=== PATIENT | male | born 1935 | race Caucasian/White ===

== ENCOUNTER 2016-11-14 05:36 | Emergency (ER) | payer MEDICARE, BC ==
[2016-11-14 06:09] VITALS: BP 171/92
--- NOTE | 2016-11-14 07:46 | EDM.PDOC ---
ED HPI GENERAL MEDICAL PROBLEM - General Chief Complaint: Genitourinary Problem Stated Complaint: BLOOD IN URINE Time Seen by Provider: 11/14/16 07:07 Source of Information: Reports: Patient, Family, Old Records, RN Notes Reviewed History Limitations: Reports: No Limitations - History of Present Illness INITIAL COMMENTS - FREE TEXT/NARRATIVE: 81-year-old gentleman presents emergency department today with gross blood in his urine, he states is been going on for about 24 hours he does have dysuria denies any fevers flank pain shortness of breath chest pain, he does have a history of hematuria in the past underwent cystoscopy in May of this year which was unremarkable he also has been evaluated by nephrology for his chronic kidney disease has had MR of the abdomen as well as renal ultrasounds which demonstrate only cysts he is not had any further workup of his bladder since May. He did have about a hematuria a couple weeks ago diagnoses prostatitis treated with 2 weeks of antibiotics he states he felt better after a couple of days and the bleeding cleared up Denies Pain Score (Numeric/FACES): 0 - Related Data Allergies Allergy/AdvReac Type Severity Reaction Status Date / Time Iodinated Contrast- Oral and Allergy Renal Verified 11/14/16 06:04 IV Dye Insufficiency [Iodinated Contrast Media - IV Dye] Home Meds: Home Meds Carvedilol [Coreg] 0.5 tab PO BID 03/14/14 [History] Cholecalciferol (Vitamin D3) [Vitamin D3] 2,000 unit PO DAILY 03/14/14 [History] Clindamycin HCl [Cleocin] 300 mg PO Q6H 03/14/14 [History] Furosemide [Lasix] 40 mg PO BID 03/14/14 [History] Insulin Glargine,Hum.Rec.Anlog [Lantus Solostar] 0 units SQ DAILY 03/14/14 [ History] Simvastatin [Zocor] 20 mg PO BEDTIME 03/14/14 [History] metroNIDAZOLE [metroNIDAZOLE 0.75% Gel] 45 gm .XX BID 03/14/14 [History] Aspirin [Ecotrin] 81 mg PO DAILY 11/14/16 [History] Furosemide [Lasix] 40 mg PO DAILY 11/14/16 [History] Losartan [Cozaar] 50 mg PO BID 11/14/16 [History] Multivitamin [Multi-Vitamin Daily] 1 tab PO DAILY 11/14/16 [History] Terazosin [Hytrin] 10 mg PO DAILY 11/14/16 [History] Past Medical History HEENT History: Reports: Hard of Hearing, Impaired Vision Cardiovascular History: Reports: Afib, High Cholesterol, Hypertension, Other ( See Below) Other Cardiovascular History: localized edema Genitourinary History: Reports: BPH, Chronic Renal Insuffiency, Other (See Below ) Other Genitourinary History: lesion of bladder Endocrine/Metabolic History: Reports: Diabetes, Type II Oncologic (Cancer) History: Reports: Basal Cell Carcinoma, Malignant Melanoma Dermatologic History: Reports: Melanoma, Other (See Below) - Infectious Disease History Infectious Disease History: Reports: Chicken Pox, Mumps - Past Surgical History HEENT Surgical History: Reports: Tonsillectomy, Other (See Below) Other HEENT Surgeries/Procedures: mandubular mass surgery GI Surgical History: Reports: Colonoscopy Dermatological Surgical History: Reports: Skin Biopsy Social & Family History - Tobacco Use Smoking Status *Q: Never Smoker Second Hand Smoke Exposure: No - Caffeine Use Caffeine Use: Reports: Coffee, Soda - Alcohol Use Days Per Week of Alcohol Use: 0 - Recreational Drug Use Recreational Drug Use: No ED ROS GENERAL - Review of Systems Review Of Systems: See Below Constitutional: Reports: No Symptoms HEENT: Reports: No Symptoms Respiratory: Reports: No Symptoms Cardiovascular: Reports: No Symptoms GI/Abdominal: Reports: No Symptoms : Reports: Dysuria, Hematuria Musculoskeletal: Reports: No Symptoms Skin: Reports: No Symptoms ED EXAM, RENAL/ - Physical Exam Exam: See Below Exam Limited By: No Limitations General Appearance: Alert, WD/WN, No Apparent Distress Head: Atraumatic, Normocephalic Neck: Normal Inspection, Supple, Non-Tender, Full Range of Motion Respiratory/Chest: No Respiratory Distress, Lungs Clear, Normal Breath Sounds, No Accessory Muscle Use Cardiovascular: Regular Rate, Rhythm, No Murmur GI/Abdominal: Soft, Non-Tender Rectal (Males) Exam: Normal Exam, Normal Rectal Tone, Prostate Normal. No: Rectal Fissure, Tenderness Back Exam: No: CVA Tenderness (R), CVA Tenderness (L) Course - Vital Signs Last Recorded V/S: Last Vital Signs Temp 98.2 F 11/14/16 06:09 Pulse 71 11/14/16 06:09 Resp 16 11/14/16 06:09 BP 171/92 H 11/14/16 06:09 Pulse Ox 94 L 11/14/16 06:09 - Orders/Labs/Meds Orders: Active Orders 24 hr Category Date Time Status CULTURE URINE [RM] Urgent Lab 11/14/16 07:51 Received Labs: Laboratory Tests 11/14/16 11/14/16 11/14/16 Range/Units 06:07 07:51 07:51 WBC 10.7 (4.5-11.0) K/uL RBC 4.18 L (4.30-5.90) M/uL Hgb 12.8 (12.0-15.0) g/dL Hct 40.2 (40.0-54.0) % MCV 96 (80-98) fL MCH 31 (27-31) pg MCHC 32 (32-36) % Plt Count 220 (150-400) K/uL Neut % (Auto) 79 H (36-66) % Lymph % (Auto) 8 L (24-44) % [place] % (Auto) 11 H (2-6) % Eos % (Auto) 2 (2-4) % Baso % (Auto) 0 (0-1) % Sodium 142 (140-148) mmol/L Potassium 4.3 (3.6-5.2) mmol/L Chloride 107 (100-108) mmol/L Carbon Dioxide 28 (21-32) mmol/L Anion Gap 7.0 (5.0-14.0) mmol/L BUN 34 H (7-18) mg/dL Creatinine 1.8 H (0.8-1.3) mg/dL Est Cr Clr Drug Dosing 36.37 mL/min Estimated GFR (MDRD) 36 L (>60) Glucose 129 H (74-106) mg/dL Calcium 8.6 (8.5-10.1) mg/dL Total Bilirubin 0.4 (0.2-1.0) mg/dL AST 19 (15-37) U/L ALT 26 (12-78) U/L Alkaline Phosphatase 51 (46-116) U/L C-Reactive Protein 0.07 (0.0-0.3) mg/dL Total Protein 6.2 L (6.4-8.2) g/dL Albumin 3.0 L (3.4-5.0) g/dL Globulin 3.2 (2.3-3.5) g/dL Albumin/Globulin Ratio 0.9 L (1.2-2.2) Urine Color Red Urine Appearance Cloudy Urine pH 6.0 (4.5-8.0) Ur Specific [place] 1.020 (1.008-1.030) Urine Protein 500 H (NEGATIVE) mg/dL Urine Glucose (UA) 50 H (NEGATIVE) mg/dL Urine Ketones Negative (NEGATIVE) mg/dL Urine Occult Blood Large (NEGATIVE) Urine Nitrite Negative (NEGAITVE) Urine Bilirubin Negative (NEGATIVE) Urine Urobilinogen Normal (NORMAL) mg/dL Ur Leukocyte Esterase Small (NEGATIVE) Urine RBC Packed H (0-5) Urine WBC Semi-packed H (0-5) Ur Epithelial Cells Few Amorphous Sediment Not seen Urine Bacteria Few Urine Mucus Not seen Departure - Departure Time of Disposition: 09:16 Disposition: Home, Self-Care 01 Condition: Fair Clinical Impression: Hematuria Qualifiers: Hematuria type: gross Qualified Code(s): R31.0 - Gross hematuria - Discharge Information Referrals: Adriano Kendall MD [Primary Care Provider] - Forms: ED Department Discharge Additional Instructions: Please follow-up with your forest fire officer next week, call return to the emergency department worsening of symptoms - My Orders Last 24 Hours: My Active Orders 11/14/16 07:51 CULTURE URINE [RM] Urgent - Assessment/Plan Last 24 Hours: My Active Orders 11/14/16 07:51 CULTURE URINE [RM] Urgent Plan: Assessment Acuity = acute Site and laterality = hematuria Etiology = probable for nephrotic syndrome Manifestations = dysuria Location of injury = Home Lab values = creatinine elevated at 1.8 consistent chronic renal failure stage G IIIB albumin low at 3.0 consistent with hypoalbuminemia urinalysis reveals 500 protein consistent proteinuria packed rbc's consists with hematuria packed WBCs consistent with pyuria Plan I did review lab work with him also prior medications recommended they follow up with her forest fire officer on Tuesday of next week Patient was in agreement with the plan all questions were answered, they were instructed to return to the emergency department or call for worsening symptoms. This note was dictated using [email or web address] voice recognition software please call with any questions.
== END 2016-11-14 09:23 | disposition home or self-care (01) ==
LOC: JP.ED 05:36
DX: R31.0 Gross hematuria (principal); E78.00 Pure hypercholesterolemia, unspecified; E11.22 Type 2 diabetes mellitus with diabetic chronic kidney disease; I12.9 Hypertensive chronic kidney disease with stage 1 through stage 4 chronic kidney disease, or unspecified chronic kidney disease; N18.9 Chronic kidney disease, unspecified; Z79.4 Long term (current) use of insulin; Z79.82 Long term (current) use of aspirin; Z79.899 Other long term (current) drug therapy
CPT/HCPCS: 36415; 80053; 81001; 85025; 86140; 87086; 87088; 87186; 99283; 99284

== ENCOUNTER 2016-11-17 17:18 | Inpatient (IN) | payer MEDICARE, BC ==
[2016-11-17] MEDS ORDERED: Sodium Chloride 0.9% 1,000 ML IV SCH ×2 (17:30→18:15)
[2016-11-17] MEDS ORDERED: Ibuprofen 800 MG Tab PO ONE (17:33)
[2016-11-17] MEDS ORDERED: Ibuprofen Susp 100 MG/5 ML 5 ML UD Cup PO ONE (17:37)
[2016-11-17] MEDS ORDERED: cefTRIAXone 1 GM in Sodium Chloride 0.9% 50 ML IV ONE (17:41)
--- NOTE | 2016-11-17 18:16 | EDM.PDOC ---
ED HPI GENERAL MEDICAL PROBLEM - General Chief Complaint: Fever Time Seen by Provider: 11/17/16 17:50 Source of Information: Reports: Patient, Family History Limitations: Reports: No Limitations - History of Present Illness INITIAL COMMENTS - FREE TEXT/NARRATIVE: pt arrived with shaking chills and having very rapid resp. He was seen tuesday with blood in his urine. He hd a urine culture but he was not treated with antibiotics. Onset: Today Duration: Hour(s):, Other (pt has not felt well all day. ) Location: Reports: Generalized Associated Symptoms: Reports: Diaphoresis, Fever/Chills, Shortness of Breath, Weakness - Related Data Allergies Allergy/AdvReac Type Severity Reaction Status Date / Time Iodinated Contrast- Oral and Allergy Renal Verified 11/14/16 06:04 IV Dye Insufficiency [Iodinated Contrast Media - IV Dye] Home Meds: Home Meds Carvedilol [Coreg] 0.5 tab PO BID 03/14/14 [History] Cholecalciferol (Vitamin D3) [Vitamin D3] 2,000 unit PO DAILY 03/14/14 [History] Clindamycin HCl [Cleocin] 300 mg PO Q6H 03/14/14 [History] Furosemide [Lasix] 40 mg PO BID 03/14/14 [History] Insulin Glargine,Hum.Rec.Anlog [Lantus Solostar] 0 units SQ DAILY 03/14/14 [ History] Simvastatin [Zocor] 20 mg PO BEDTIME 03/14/14 [History] metroNIDAZOLE [metroNIDAZOLE 0.75% Gel] 45 gm .XX BID 03/14/14 [History] Aspirin [Ecotrin] 81 mg PO DAILY 11/14/16 [History] Furosemide [Lasix] 40 mg PO DAILY 11/14/16 [History] Losartan [Cozaar] 50 mg PO BID 11/14/16 [History] Multivitamin [Multi-Vitamin Daily] 1 tab PO DAILY 11/14/16 [History] Terazosin [Hytrin] 10 mg PO DAILY 11/14/16 [History] Past Medical History HEENT History: Reports: Hard of Hearing, Impaired Vision Cardiovascular History: Reports: Afib, High Cholesterol, Hypertension, Other ( See Below) Other Cardiovascular History: localized edema Genitourinary History: Reports: BPH, Chronic Renal Insuffiency, Other (See Below ) Other Genitourinary History: lesion of bladder Endocrine/Metabolic History: Reports: Diabetes, Type II Oncologic (Cancer) History: Reports: Basal Cell Carcinoma, Malignant Melanoma Dermatologic History: Reports: Melanoma, Other (See Below) - Infectious Disease History Infectious Disease History: Reports: Chicken Pox, Mumps - Past Surgical History HEENT Surgical History: Reports: Tonsillectomy, Other (See Below) Other HEENT Surgeries/Procedures: mandubular mass surgery GI Surgical History: Reports: Colonoscopy Dermatological Surgical History: Reports: Skin Biopsy Social & Family History - Tobacco Use Smoking Status *Q: Never Smoker Second Hand Smoke Exposure: No - Caffeine Use Caffeine Use: Reports: Coffee, Soda - Alcohol Use Days Per Week of Alcohol Use: 0 - Recreational Drug Use Recreational Drug Use: No ED ROS GENERAL - Review of Systems Review Of Systems: See Below Constitutional: Reports: Fever, Chills, Malaise, Weakness HEENT: Reports: No Symptoms Respiratory: Reports: Other ( rapid resp. ) Cardiovascular: Reports: No Symptoms Endocrine: Reports: No Symptoms GI/Abdominal: Reports: No Symptoms : Reports: Other ( recent hematuria. ) Musculoskeletal: Reports: No Symptoms Skin: Reports: No Symptoms Neurological: Reports: No Symptoms Hematologic/Lymphatic: Reports: No Symptoms Immunologic: Reports: No Symptoms ED EXAM, SEPSIS - Physical Exam Exam: See Below Text/Narrative:: pt had severe shaking chills thar came on quite suddenly Exam Limited By: No Limitations General Appearance: Alert, Anxious, Severe Distress Ears: Normal TMs Nose: Normal Inspection Throat/Mouth: Normal Inspection Head: Atraumatic Neck: Normal Inspection Respiratory/Chest: No Respiratory Distress Cardiovascular: Regular Rate, Rhythm, Tachycardia GI/Abdominal Exam: Soft, Non-Tender (Male) Exam: Deferred Rectal (Males) Exam: Deferred Back: Normal Inspection Extremities: Normal Inspection Neurological: Alert, Oriented, Other ( some what obtunded. ) Course - Vital Signs Last Recorded V/S: Last Vital Signs Temp 39.8 C H 11/17/16 17:56 Pulse 100 11/17/16 17:56 Resp 22 H 11/17/16 17:56 BP 150/75 H 11/17/16 17:56 Pulse Ox 95 11/17/16 17:56 - Orders/Labs/Meds Orders: Active Orders 24 hr Category Date Time Status Chest 1V Frontal [CR] Stat Exams 11/17/16 18:09 Ordered COMPREHENSIVE METABOLIC PN,CMP [CHEM] Urgent Lab 11/17/16 17:31 Ordered CRP [C-REACTIVE PROTEIN] [CHEM] Stat Lab 11/17/16 17:31 Ordered CULTURE BLOOD [BC] Urgent Lab 11/17/16 17:31 Ordered CULTURE BLOOD [BC] Urgent Lab 11/17/16 17:31 Ordered CULTURE URINE [RM] Stat Lab 11/17/16 18:08 Uncollected GLUCOSE POC LAB TO COLLECT [POC] Stat Lab 11/17/16 17:41 Ordered LACTIC ACID [CHEM] Stat Lab 11/17/16 17:33 Ordered UA W/MICROSCOPIC [URIN] Urgent Lab 11/17/16 17:31 Uncollected Sodium Chloride 0.9% [Normal Saline] 1,000 ml Med 11/17/16 17:30 Active IV ASDIRECTED Sodium Chloride 0.9% [Normal Saline] 1,000 ml Med 11/17/16 18:15 Ordered IV ASDIRECTED Blood Culture x2 Reflex Set [OM.PC] Urgent Oth 11/17/16 17:31 Ordered Medication Orders Sodium Chloride (Normal Saline) 1,000 mls @ 999 mls/hr IV ASDIRECTED [facility] Last Admin: 11/17/16 17:45 Dose: 999 mls/hr Sodium Chloride (Normal Saline) 1,000 mls @ 500 mls/hr IV ASDIRECTED [facility] Labs: Laboratory Tests 11/17/16 Range/Units 17:31 WBC 6.9 (4.5-11.0) K/uL RBC 4.40 (4.30-5.90) M/uL Hgb 13.7 (12.0-15.0) g/dL Hct 42.3 (40.0-54.0) % MCV 96 (80-98) fL MCH 31 (27-31) pg MCHC 32 (32-36) % Plt Count 205 (150-400) K/uL Neut % (Auto) 96 H (36-66) % Lymph % (Auto) 3 L (24-44) % [place] % (Auto) 0 L (2-6) % Eos % (Auto) 0 L (2-4) % Baso % (Auto) 0 (0-1) % Meds: Medications Generic Name Dose Route Start Last Admin Trade Name Freq PRN Reason Stop Dose Admin Sodium Chloride 1,000 mls @ 999 mls/hr 11/17/16 17:30 11/17/16 17:45 Normal Saline IV 999 mls/hr ASDIRECTED PARI Administration Sodium Chloride 1,000 mls @ 500 mls/hr 11/17/16 18:15 Normal Saline IV ASDIRECTED PARI Discontinued Medications Generic Name Dose Route Start Last Admin Trade Name Mikael PRN Reason Stop Dose Admin Ceftriaxone Sodium 1 gm/ 50 mls @ 100 mls/hr 11/17/16 17:41 11/17/16 17:54 Sodium Chloride IV 11/17/16 18:10 100 mls/hr ONETIME ONE Administration Ibuprofen 800 mg 11/17/16 17:33 Motrin PO 11/17/16 17:34 ONETIME ONE Ibuprofen 600 mg 11/17/16 17:37 11/17/16 17:45 Motrin 100 Mg/5 Ml Susp PO 11/17/16 17:38 600 mg ONETIME ONE Administration - Re-Assessments/Exams Free Text/Narrative Re-Assessment/Exam: 11/17/16 18:18 pt had a urine culture from Tuesday which was pos for ecoli. His wbc is not elevated today. He was started with fluids and he was given a gram of rocephen. Motrin 600mg was given to the pt. Departure - Departure Time of Disposition: 18:20 Disposition: Admitted As Inpatient 66 Condition: Fair Clinical Impression: Sepsis, UTI (urinary tract infection) Hematuria Qualifiers: Hematuria type: gross Qualified Code(s): R31.0 - Gross hematuria - Discharge Information Referrals: Adriano Kendall MD [Primary Care Provider] - Care Plan Goals: admit to Dr huff. - My Orders Last 24 Hours: My Active Orders 11/17/16 17:30 Sodium Chloride 0.9% [Normal Saline] 1,000 ml IV ASDIRECTED 11/17/16 17:31 COMPREHENSIVE METABOLIC PN,CMP [CHEM] Urgent CRP [C-REACTIVE PROTEIN] [CHEM] Stat CULTURE BLOOD [BC] Urgent CULTURE BLOOD [BC] Urgent UA W/MICROSCOPIC [URIN] Urgent Blood Culture x2 Reflex Set [OM.PC] Urgent 11/17/16 17:33 LACTIC ACID [CHEM] Stat 11/17/16 17:41 GLUCOSE POC LAB TO COLLECT [POC] Stat 11/17/16 18:08 CULTURE URINE [RM] Stat 11/17/16 18:09 Chest 1V Frontal [CR] Stat 11/17/16 18:15 Sodium Chloride 0.9% [Normal Saline] 1,000 ml IV ASDIRECTED - Assessment/Plan Last 24 Hours: My Active Orders 11/17/16 17:30 Sodium Chloride 0.9% [Normal Saline] 1,000 ml IV ASDIRECTED 11/17/16 17:31 COMPREHENSIVE METABOLIC PN,CMP [CHEM] Urgent CRP [C-REACTIVE PROTEIN] [CHEM] Stat CULTURE BLOOD [BC] Urgent CULTURE BLOOD [BC] Urgent UA W/MICROSCOPIC [URIN] Urgent Blood Culture x2 Reflex Set [OM.PC] Urgent 11/17/16 17:33 LACTIC ACID [CHEM] Stat 11/17/16 17:41 GLUCOSE POC LAB TO COLLECT [POC] Stat 11/17/16 18:08 CULTURE URINE [RM] Stat 11/17/16 18:09 Chest 1V Frontal [CR] Stat 11/17/16 18:15 Sodium Chloride 0.9% [Normal Saline] 1,000 ml IV ASDIRECTED
[2016-11-17] MEDS ORDERED: Sodium Chloride 0.9% 10 ML Syringe FLUSH PRN (19:36)
[2016-11-17] MEDS ORDERED: Polyethylene Glycol 3350 Powder 17 GM Packet PO PRN (19:36)
[2016-11-17] MEDS ORDERED: 50% Dextrose in Water 50 ML Syringe IV PRN (19:36)
[2016-11-17] MEDS ORDERED: Magnesium Hydroxide 400 MG/5 ML Susp 30 ML Cup PO PRN (19:36)
[2016-11-17] MEDS ORDERED: oxyCODONE 5 MG Tab PO PRN (19:36)
[2016-11-17] MEDS ORDERED: Docusate Sodium 100 MG Cap PO PRN (19:36)
[2016-11-17] MEDS ORDERED: Glucose Gel 15 GM in 37.5 GM Tube PO PRN (19:36)
[2016-11-17] MEDS ORDERED: Lactated Ringers 500 ML IV SCH (19:36)
[2016-11-17] MEDS ORDERED: Ondansetron 4 MG/2 ML SDV IV PRN (19:36)
[2016-11-17] MEDS ORDERED: Enoxaparin 30 MG/0.3 ML Syringe SUBCUT SCH (19:36)
--- NOTE | 2016-11-17 19:56 | PCM.HP ---
H&P History of Present Illness - General Date of Service: 11/17/16 Admit Problem/Dx: Admission Diagnosis/Problem Admission Diagnosis/Problem Cystitis Source of Information: Patient, Family, Old Records, Provider, RN Notes Reviewed History Limitations: Reports: No Limitations - History of Present Illness Initial Comments - Free Text/Narative: This patient is an 81-year-old gentleman who is admitted through the emergency department with fever, chills, weakness, secondary to urinary tract infection with sepsis. He had difficulty with urinary tract infection late September early October and associated gross hematuria. Hematuria and symptoms resolved after antibiotic therapy. Now over the past few days his had intermittent gross hematuria, he was seen and evaluated in the emergency department on Tuesday, culture from that time has grown out Escherichia coli sensitive to most antibiotics. Hematuria had resolved after the weekend but reoccurred today associated with fever, chills, and marked weakness. His white blood cell count is normal but he did have a significant temperature elevation. Follow-up urinalysis shows evidence of infection, lactic acid level is modestly elevated. - Related Data Allergies/Adverse Reactions: Allergies Allergy/AdvReac Type Severity Reaction Status Date / Time Iodinated Contrast- Oral and Allergy Renal Verified 11/14/16 06:04 IV Dye Insufficiency [Iodinated Contrast Media - IV Dye] Home Medications: Home Meds Carvedilol [Coreg] 0.5 tab PO BID 03/14/14 [History] Cholecalciferol (Vitamin D3) [Vitamin D3] 2,000 unit PO DAILY 03/14/14 [History] Insulin Glargine,Hum.Rec.Anlog [Lantus Solostar] 18 units SQ BID 03/14/14 [ History] Simvastatin [Zocor] 20 mg PO BEDTIME 03/14/14 [History] metroNIDAZOLE [metroNIDAZOLE 0.75% Gel] 45 gm .XX BID 03/14/14 [History] Aspirin [Ecotrin] 81 mg PO DAILY 11/14/16 [History] Furosemide [Lasix] 40 mg PO BID 11/14/16 [History] Losartan [Cozaar] 50 mg PO BID 11/14/16 [History] Multivitamin [Multi-Vitamin Daily] 1 tab PO DAILY 11/14/16 [History] Terazosin [Hytrin] 10 mg PO DAILY 11/14/16 [History] Insulin Aspart [Novolog] 100 unit SQ QID 11/17/16 [History] Past Medical History HEENT History: Reports: Hard of Hearing, Impaired Vision Cardiovascular History: Reports: Afib, High Cholesterol, Hypertension, Other ( See Below) Other Cardiovascular History: localized edema Genitourinary History: Reports: BPH, Chronic Renal Insuffiency, Other (See Below ) Other Genitourinary History: lesion of bladder Endocrine/Metabolic History: Reports: Diabetes, Type II Oncologic (Cancer) History: Reports: Basal Cell Carcinoma, Malignant Melanoma Dermatologic History: Reports: Melanoma, Other (See Below) - Infectious Disease History Infectious Disease History: Reports: Chicken Pox, Mumps - Past Surgical History HEENT Surgical History: Reports: Tonsillectomy, Other (See Below) Other HEENT Surgeries/Procedures: mandubular mass surgery GI Surgical History: Reports: Colonoscopy Dermatological Surgical History: Reports: Skin Biopsy Social & Family History - Tobacco Use Smoking Status *Q: Never Smoker Second Hand Smoke Exposure: No - Caffeine Use Caffeine Use: Reports: Coffee, Soda - Alcohol Use Days Per Week of Alcohol Use: 0 - Recreational Drug Use Recreational Drug Use: No H&P Review of Systems - Review of Systems: Review Of Systems: See Below General: Reports: Fever, Chills, Weakness HEENT: Reports: No Symptoms Pulmonary: Reports: No Symptoms Cardiovascular: Reports: No Symptoms Gastrointestinal: Reports: No Symptoms Genitourinary: Reports: Frequency, Urgency, Incontinence, Hematuria. Denies: Dysuria, Pain Musculoskeletal: Reports: No Symptoms Skin: Reports: No Symptoms Psychiatric: Reports: No Symptoms Neurological: Reports: No Symptoms Hematologic/Lymphatic: Reports: No Symptoms Immunologic: Reports: No Symptoms Exam - Exam Exam: See Below - Vital Signs Vital Signs: Last Vital Signs Temp 102.6 F H 11/17/16 19:40 Pulse 95 11/17/16 19:40 Resp 14 11/17/16 19:03 BP 118/65 11/17/16 19:40 Pulse Ox 90 L 11/17/16 19:40 Weight: 270 lb 1.06 oz - Exam Quality Assessment: DVT Prophylaxis General: Alert, Oriented, Cooperative, Mild Distress HEENT: Conjunctiva Clear, Mucosa Moist & [place], Normal Nasal Septum, Posterior Pharynx Clear, Pupils Equal. No: Hearing Intact Neck: Supple, Trachea Midline, +2 Carotid Pulse wo Bruit Lungs: Clear to Auscultation, Normal Respiratory Effort Cardiovascular: Regular Rate, Regular Rhythm, Normal S1, Normal S2. No: Systolic Murmur, Diastolic Murmur GI/Abdominal Exam: Normal Bowel Sounds, Soft, Non-Tender, No Organomegaly, No Distention Back Exam: Normal Inspection, Full Range of Motion Extremities: Non-Tender, No Pedal Edema Skin: Warm, Dry Neurological: Cranial Nerves Intact, Strength Equal Bilateral, Normal Speech, Normal Tone. No: Focal Deficit Neuro Extensive - Mental Status: Alert, Oriented x3, Normal Mood/Affect, Normal Cognition, Memory Intact - Patient Data Lab Results Last 24 hrs: Laboratory Results - last 24 hr 11/17/16 Range/Units 19:01 Urine Color Brown Urine Appearance Cloudy Urine pH 6.0 (4.5-8.0) Ur Specific [place] 1.010 (1.008-1.030) Urine Protein 500 H (NEGATIVE) mg/dL Urine Glucose (UA) 250 H (NEGATIVE) mg/dL Urine Ketones Negative (NEGATIVE) mg/dL Urine Occult Blood Large (NEGATIVE) Urine Nitrite Negative (NEGAITVE) Urine Bilirubin Negative (NEGATIVE) Urine Urobilinogen Normal (NORMAL) mg/dL Ur Leukocyte Esterase Moderate (NEGATIVE) Urine RBC >100 H (0-5) Urine WBC Packed H (0-5) Ur Epithelial Cells Few Amorphous Sediment Not seen Urine Bacteria Many Urine Mucus Not seen Result Diagrams: 11/17/16 17:31 11/17/16 17:31 *Q Meaningful Use (ADM) - VTE *Q VTE Criteria *Q: - VTE Risk Assess *Q Each Risk Factor Represents 1 Point: Obesity (BMI greater than 30) Total Score 1 Point Risk Factors: 1 Each Risk Factor Represents 2 Points: None Total Score 2 Point Risk Factors: 0 Each Risk Factor Represents 3 Points: Age 75 Years or Greater Total Score 3 Point Risk Factors: 3 Each Risk Factor Represents 5 Points: None Total Score 5 Point Risk Factors: 0 Venous Thromboembolism Risk Factor Score *Q: 4 - Stroke *Q Stroke Criteria *Q: - AMI *Q AMI Criteria *Q: Problem List Initiated/Reviewed/Updated: Yes Orders Last 24hrs: Active Orders 24 hr Category Date Time Status Patient Status [ADT] Routine ADT 11/17/16 19:36 Active Ambulate [RC] QID Care 11/17/16 19:36 Active Blood Glucose Check, Bedside [RC] QIDACANDBED Care 11/17/16 19:36 Active Communication Order [RC] ASDIRECTED Care 11/17/16 19:36 Active Diabetes Education [RC] Click to Edit Care 11/17/16 19:36 Active Intake and Output [RC] QSHIFT Care 11/17/16 19:36 Active Notify Provider Vital Signs [RC] ASDIRECTED Care 11/17/16 19:36 Active Notify Provider [RC] PRN Care 11/17/16 19:36 Active Oxygen Therapy [RC] PRN Care 11/17/16 19:36 Active Peripheral IV Care [RC] . DIRECTED Care 11/17/16 19:36 Active Up With Assistance [RC] ASDIRECTED Care 11/17/16 19:36 Active Up to Chair [RC] QID Care 11/17/16 19:36 Active VTE/DVT Education [RC] Per Unit Routine Care 11/17/16 19:36 Active Vital Signs [RC] Q4H Care 11/17/16 19:36 Active PT Evaluation and Treatment [CONS] Routine Cons 11/17/16 19:36 Active Consistent Carbohydrate Diet [DIET] Diet 11/17/16 Dinner Active BASIC METABOLIC PANEL,BMP [CHEM] AM Lab 11/18/16 05:11 Ordered CBC WITH AUTO DIFF [HEME] AM Lab 11/18/16 05:11 Ordered GLUCOSE POC LAB TO COLLECT [POC] QIDACANDBED Lab 11/17/16 21:00 Ordered GLUCOSE POC LAB TO COLLECT [POC] QIDACANDBED Lab 11/18/16 07:30 Ordered GLUCOSE POC LAB TO COLLECT [POC] QIDACANDBED Lab 11/18/16 11:30 Ordered GLUCOSE POC LAB TO COLLECT [POC] QIDACANDBED Lab 11/18/16 16:30 Ordered GLUCOSE POC LAB TO COLLECT [POC] QIDACANDBED Lab 11/18/16 21:00 Ordered GLUCOSE POC LAB TO COLLECT [POC] QIDACANDBED Lab 11/19/16 07:30 Ordered GLUCOSE POC LAB TO COLLECT [POC] QIDACANDBED Lab 11/19/16 11:30 Ordered GLUCOSE POC LAB TO COLLECT [POC] QIDACANDBED Lab 11/19/16 16:30 Ordered GLUCOSE POC LAB TO COLLECT [POC] QIDACANDBED Lab 11/19/16 21:00 Ordered GLUCOSE POC LAB TO COLLECT [POC] QIDACANDBED Lab 11/20/16 07:30 Ordered GLUCOSE POC LAB TO COLLECT [POC] QIDACANDBED Lab 11/20/16 11:30 Ordered GLUCOSE POC LAB TO COLLECT [POC] QIDACANDBED Lab 11/20/16 16:30 Ordered GLUCOSE POC LAB TO COLLECT [POC] QIDACANDBED Lab 11/20/16 21:00 Ordered GLUCOSE POC LAB TO COLLECT [POC] QIDACANDBED Lab 11/21/16 07:30 Ordered GLUCOSE POC LAB TO COLLECT [POC] QIDACANDBED Lab 11/21/16 11:30 Ordered GLUCOSE POC LAB TO COLLECT [POC] QIDACANDBED Lab 11/21/16 16:30 Ordered GLUCOSE POC LAB TO COLLECT [POC] QIDACANDBED Lab 11/21/16 21:00 Ordered GLUCOSE POC LAB TO COLLECT [POC] QIDACANDBED Lab 11/22/16 07:30 Ordered GLUCOSE POC LAB TO COLLECT [POC] QIDACANDBED Lab 11/22/16 11:30 Ordered GLUCOSE POC LAB TO COLLECT [POC] QIDACANDBED Lab 11/22/16 16:30 Ordered GLUCOSE POC LAB TO COLLECT [POC] QIDACANDBED Lab 11/22/16 21:00 Ordered GLUCOSE POC LAB TO COLLECT [POC] QIDACANDBED Lab 11/23/16 07:30 Ordered GLUCOSE POC LAB TO COLLECT [POC] QIDACANDBED Lab 11/23/16 11:30 Ordered GLUCOSE POC LAB TO COLLECT [POC] QIDACANDBED Lab 11/23/16 16:30 Ordered GLUCOSE POC LAB TO COLLECT [POC] QIDACANDBED Lab 11/23/16 21:00 Ordered GLUCOSE POC LAB TO COLLECT [POC] QIDACANDBED Lab 11/24/16 07:30 Ordered GLUCOSE POC LAB TO COLLECT [POC] QIDACANDBED Lab 11/24/16 11:30 Ordered GLUCOSE POC LAB TO COLLECT [POC] QIDACANDBED Lab 11/24/16 16:30 Ordered GLUCOSE POC LAB TO COLLECT [POC] QIDACANDBED Lab 11/24/16 21:00 Ordered GLUCOSE POC LAB TO COLLECT [POC] QIDACANDBED Lab 11/25/16 07:30 Ordered GLUCOSE POC LAB TO COLLECT [POC] QIDACANDBED Lab 11/25/16 11:30 Ordered GLUCOSE POC LAB TO COLLECT [POC] QIDACANDBED Lab 11/25/16 16:30 Ordered GLUCOSE POC LAB TO COLLECT [POC] QIDACANDBED Lab 11/25/16 21:00 Ordered GLUCOSE POC LAB TO COLLECT [POC] QIDACANDBED Lab 11/26/16 07:30 Ordered GLUCOSE POC LAB TO COLLECT [POC] QIDACANDBED Lab 11/26/16 11:30 Ordered GLUCOSE POC LAB TO COLLECT [POC] QIDACANDBED Lab 11/26/16 16:30 Ordered GLUCOSE POC LAB TO COLLECT [POC] QIDACANDBED Lab 11/26/16 21:00 Ordered GLUCOSE POC LAB TO COLLECT [POC] QIDACANDBED Lab 11/27/16 07:30 Ordered GLUCOSE POC LAB TO COLLECT [POC] QIDACANDBED Lab 11/27/16 11:30 Ordered GLUCOSE POC LAB TO COLLECT [POC] QIDACANDBED Lab 11/27/16 16:30 Ordered GLUCOSE POC LAB TO COLLECT [POC] QIDACANDBED Lab 11/27/16 21:00 Ordered GLUCOSE POC LAB TO COLLECT [POC] QIDACANDBED Lab 11/28/16 07:30 Ordered GLUCOSE POC LAB TO COLLECT [POC] QIDACANDBED Lab 11/28/16 11:30 Ordered GLUCOSE POC LAB TO COLLECT [POC] QIDACANDBED Lab 11/28/16 16:30 Ordered LACTIC ACID [CHEM] Stat Lab 11/17/16 23:00 Ordered MAGNESIUM [CHEM] AM Lab 11/18/16 05:11 Ordered Acetaminophen [Tylenol] Med 11/17/16 19:36 Active 650 mg PO Q4H PRN Dextrose 50% in Water Med 11/17/16 19:36 Ordered 50 ml IV ONETIME PRN Dextrose [Glutose 15] Med 11/17/16 19:36 Ordered 15 gm PO ONETIME PRN Docusate Sodium [Colace] Med 11/17/16 19:36 Ordered 100 mg PO BID PRN Enoxaparin [Lovenox] Med 11/17/16 19:36 Ordered 30 mg SUBCUT DAILY Insulin Aspart [NovoLOG] Med 11/17/16 20:00 Ordered See Protocol SUBCUT QIDACANDBED Lactated Ringers [Ringers, Lactated] 1,000 ml Med 11/17/16 23:15 Ordered IV ASDIRECTED Lactated Ringers [Ringers, Lactated] 500 ml Med 11/17/16 19:36 Ordered IV .BOLUS Magnesium Hydroxide [Milk of Magnesia] Med 11/17/16 19:36 Ordered 30 ml PO Q12H PRN Ondansetron [Zofran] Med 11/17/16 19:36 Ordered 4 mg IV Q4H PRN Polyethylene Glycol 3350 [MiraLAX] Med 11/17/16 19:36 Ordered 17 gm PO DAILY PRN Sodium Chloride 0.9% [Saline Flush] Med 11/17/16 19:36 Ordered 10 ml FLUSH ASDIRECTED PRN cefTRIAXone [Rocephin] 1 gm Med 11/17/16 19:36 Ordered Sodium Chloride 0.9% [Normal Saline] 50 ml IV Q24H oxyCODONE Med 11/17/16 19:36 Ordered 5 mg PO Q4H PRN Peripheral IV Insertion Adult [OM.PC] Routine Oth 11/17/16 19:36 Ordered Resuscitation Status Routine Resus Stat 11/17/16 19:02 Ordered Medication Orders Acetaminophen (Tylenol) 650 mg PO Q4H PRN PRN Reason: Pain (Mild 1-3)/fever Aspirin (Halfprin) 81 mg PO DAILY PARI Carvedilol (Coreg) 12.5 mg PO BID PARI Dextrose (Glutose 15) 15 gm PO ONETIME PRN PRN Reason: Hypoglycemia Dextrose/Water (Dextrose 50% In Water) 50 ml IV ONETIME PRN PRN Reason: Hypoglycemia Docusate Sodium (Colace) 100 mg PO BID PRN PRN Reason: Constipation Enoxaparin Sodium (Lovenox) 30 mg SUBCUT DAILY PARI Furosemide (Lasix) 40 mg PO BID PARI Ceftriaxone Sodium 1 gm/ (Sodium Chloride) 50 mls @ 100 mls/hr IV Q24H PARI Lactated Ringer's (Ringers, Lactated) 500 mls @ 500 mls/hr IV .BOLUS PARI Stop: 11/17/16 23:37 Lactated Ringer's (Ringers, Lactated) 1,000 mls @ 125 mls/hr IV ASDIRECTED PARI Insulin Aspart (Novolog) 0 unit SUBCUT QIDACANDBED PARI PRN Reason: Protocol Losartan Potassium (Cozaar) 50 mg PO BID PARI Magnesium Hydroxide (Milk Of Magnesia) 30 ml PO Q12H PRN PRN Reason: Constipation Non-Formulary Medication (Insulin Glargine,Hum.Rec.Anlog [Lantus Solostar]) 18 units SQ BID COUNT INCLUDES THE [facility] Ondansetron HCl (Zofran) 4 mg IV Q4H PRN PRN Reason: Nausea/Vomiting Oxycodone HCl (Oxycodone) 5 mg PO Q4H PRN PRN Reason: Pain (moderate 4-6) Polyethylene Glycol (Miralax) 17 gm PO DAILY PRN PRN Reason: Constipation Simvastatin (Zocor) 20 mg PO BEDTIME PRAI Sodium Chloride (Saline Flush) 10 ml FLUSH ASDIRECTED PRN PRN Reason: Keep Vein Open Terazosin HCl (Hytrin) 10 mg PO DAILY PARI Assessment/Plan Comment:: ASSESSMENT AND PLAN COMPLICATED URINARY TRACT INFECTION WITH SEPSIS-recent difficulty with recurrent urinary tract infection, recent culture growing Escherichia coli sensitive to ceftriaxone -Repeat urine culture and blood cultures pending -Aggressive IV fluid replacement per sepsis protocol -Follow-up lactic acid level in 4 hours -Rocephin 1 g IV every 24 hours pending follow-up culture results -Outpatient urology evaluation CHRONIC KIDNEY DISEASE STAGE III -Closely monitor urine output and renal function during hospital stay TYPE 2 DIABETES MELLITUS -4 times a day glucometers -Continue usual dose of long-acting insulin -Moderate dose sliding scale NovoLog MAINTENANCE ISSUES -DVT prophylaxis; Lovenox 30 mg subcutaneous daily -GI prophylaxis; not indicated -Barrientos catheter; not indicated -Nutrition; consistent carb diet -Nicotine dependence; not required CODE STATUS-FULL CODE ADMISSION STATUS-patient will be admitted to inpatient status, expect at least a 2 night hospital stay for evaluation and management of problems as outlined above. At the time of this admission I do not reasonably expected evaluation and management of this problem will require more than a 96 hour hospital stay. DISPOSITION-anticipate discharge to home after the hospital stay. PRIMARY CARE PROVIDER-Dr. Kendall
[2016-11-17] MEDS ORDERED: FLU Vacc TS 2017-18 (65yr UP)/PF 180 MCG/0.5 ML Syringe IM ONE (20:30)
[2016-11-17] MEDS: Losartan 50 MG Tab PO SCH (20:58)
[2016-11-17] MEDS: Carvedilol 12.5 MG Tab PO SCH (20:58)
[2016-11-17] MEDS: Acetaminophen 325 MG Tab PO PRN (20:59)
[2016-11-17] MEDS: Simvastatin 20 MG Tab PO SCH (20:59)
[2016-11-17] MEDS ORDERED: Insulin Detemir 100 Units/ML 3 ML Pen SUBCUT SCH (21:00)
[2016-11-17] MEDS: Insulin Aspart 100 Units/ML 3 ML Pen SUBCUT SCH (21:41)
[2016-11-17] MEDS ORDERED: Lactated Ringers 1,000 ML IV SCH (23:15)
[2016-11-18] MEDS: Insulin Aspart 100 Units/ML 3 ML Pen SUBCUT SCH ×4 (07:59→20:28)
[2016-11-18] MEDS: Insulin Detemir 100 Units/ML 3 ML Pen SUBCUT SCH ×2 (08:08→20:29)
--- NOTE | 2016-11-18 08:41 | CR ---
Chest 1V Frontal HISTORY: sepsis COMPARISON: 03/14/2014 FINDINGS: Portable chest, 1814 hours. Lungs appear clear and normally aerated. Cardiomediastinal silhouette is within normal limits. There is mild atherosclerotic calcification in the aortic arch. No vascular redistribution or pleural fluid can be seen. Bony structures and soft tissues are unremarkable. IMPRESSION: No acute chest abnormality or significant interval change is identified.
[2016-11-18] MEDS ORDERED: Furosemide 40 MG Tab PO SCH (09:00)
--- NOTE | 2016-11-18 09:38 | PCM.PN ---
- General Info Date of Service: 11/18/16 Functional Status: Reports: Pain Controlled, Tolerating Diet, Urinating - Review of Systems General: Reports: Fever, Weakness, Chills Pulmonary: Reports: No Symptoms Cardiovascular: Reports: No Symptoms Gastrointestinal: Reports: No Symptoms Genitourinary: Reports: Frequency, Urgency, Incontinence Systems Review Comment:: This patient has had recurrent fevers since admission with associated chills and weakness. White blood cell count has increased from yesterday, lactic acid level has normalized. Urine output has been borderline and creatinine is increased from admission. Vital signs have been stable, overall energy level seems to be improved and his appetite has also improved. Blood cultures are growing gram-negative rods. - Patient Data Vitals - Most Recent: Last Vital Signs Temp 98.1 F 11/18/16 03:00 Pulse 63 11/18/16 05:00 Resp 18 11/18/16 05:00 BP 143/70 H 11/18/16 05:00 Pulse Ox 96 11/18/16 05:00 Weight - Most Recent: 274 lb 11.135 oz I&O - Last 24 Hours: Intake & Output 11/17/16 11/18/16 11/18/16 22:59 06:59 14:59 Intake Total 2132 2070 Output Total 200 Balance 2132 1870 Lab Results Last 24 Hours: Laboratory Results - last 24 hr 11/17/16 11/17/16 11/18/16 Range/Units 19:01 23:00 04:45 WBC 15.6 H (4.5-11.0) K/uL RBC 3.63 L (4.30-5.90) M/uL Hgb 11.4 L D (12.0-15.0) g/dL Hct 35.2 L (40.0-54.0) % MCV 97 (80-98) fL MCH 31 (27-31) pg MCHC 32 (32-36) % Plt Count 161 (150-400) K/uL Add Manual Diff Yes Neutrophils % (Manual) 74 H (36-66) % Band Neutrophils % 5 (5-11) % Lymphocytes % (Manual) 10 L (24-44) % Monocytes % (Manual) 10 H (2-6) % Eosinophils % (Manual) 1 L (2-4) % Sodium (140-148) mmol/L Potassium (3.6-5.2) mmol/L Chloride (100-108) mmol/L Carbon Dioxide (21-32) mmol/L Anion Gap (5.0-14.0) mmol/L BUN (7-18) mg/dL Creatinine (0.8-1.3) mg/dL Est Cr Clr Drug Dosing mL/min Estimated GFR (MDRD) (>60) Glucose (74-106) mg/dL Lactic Acid 1.5 (0.4-2.0) mmol/L Calcium (8.5-10.1) mg/dL Magnesium (1.8-2.4) mg/dL Urine Color Brown Urine Appearance Cloudy Urine pH 6.0 (4.5-8.0) Ur Specific [place] 1.010 (1.008-1.030) Urine Protein 500 H (NEGATIVE) mg/dL Urine Glucose (UA) 250 H (NEGATIVE) mg/dL Urine Ketones Negative (NEGATIVE) mg/dL Urine Occult Blood Large (NEGATIVE) Urine Nitrite Negative (NEGAITVE) Urine Bilirubin Negative (NEGATIVE) Urine Urobilinogen Normal (NORMAL) mg/dL Ur Leukocyte Esterase Moderate (NEGATIVE) Urine RBC >100 H (0-5) Urine WBC Packed H (0-5) Ur Epithelial Cells Few Amorphous Sediment Not seen Urine Bacteria Many Urine Mucus Not seen 11/18/16 Range/Units 04:45 WBC (4.5-11.0) K/uL RBC (4.30-5.90) M/uL Hgb (12.0-15.0) g/dL Hct (40.0-54.0) % MCV (80-98) fL MCH (27-31) pg MCHC (32-36) % Plt Count (150-400) K/uL Add Manual Diff Neutrophils % (Manual) (36-66) % Band Neutrophils % (5-11) % Lymphocytes % (Manual) (24-44) % Monocytes % (Manual) (2-6) % Eosinophils % (Manual) (2-4) % Sodium 139 L (140-148) mmol/L Potassium 5.0 (3.6-5.2) mmol/L Chloride 107 (100-108) mmol/L Carbon Dioxide 25 (21-32) mmol/L Anion Gap 12.0 (5.0-14.0) mmol/L BUN 46 H (7-18) mg/dL Creatinine 2.6 H (0.8-1.3) mg/dL Est Cr Clr Drug Dosing 25.18 mL/min Estimated GFR (MDRD) 24 L (>60) Glucose 192 H (74-106) mg/dL Lactic Acid (0.4-2.0) mmol/L Calcium 8.0 L (8.5-10.1) mg/dL Magnesium 1.8 (1.8-2.4) mg/dL Urine Color Urine Appearance Urine pH (4.5-8.0) Ur Specific [place] (1.008-1.030) Urine Protein (NEGATIVE) mg/dL Urine Glucose (UA) (NEGATIVE) mg/dL Urine Ketones (NEGATIVE) mg/dL Urine Occult Blood (NEGATIVE) Urine Nitrite (NEGAITVE) Urine Bilirubin (NEGATIVE) Urine Urobilinogen (NORMAL) mg/dL Ur Leukocyte Esterase (NEGATIVE) Urine RBC (0-5) Urine WBC (0-5) Ur Epithelial Cells Amorphous Sediment Urine Bacteria Urine Mucus Med Orders - Current: Current Medications Acetaminophen (Tylenol) 650 mg PO Q4H PRN PRN Reason: Pain (Mild 1-3)/fever Last Admin: 11/17/16 20:59 Dose: 650 mg Aspirin (Halfprin) 81 mg PO DAILY [facility] Carvedilol (Coreg) 12.5 mg PO BID [facility] Last Admin: 11/17/16 20:58 Dose: 12.5 mg Dextrose (Glutose 15) 15 gm PO ONETIME PRN PRN Reason: Hypoglycemia Dextrose/Water (Dextrose 50% In Water) 50 ml IV ONETIME PRN PRN Reason: Hypoglycemia Docusate Sodium (Colace) 100 mg PO BID PRN PRN Reason: Constipation Last Admin: 11/17/16 20:59 Dose: 100 mg Enoxaparin Sodium (Lovenox) 30 mg SUBCUT QPM [facility] Furosemide (Lasix) 40 mg PO BID [facility] Ceftriaxone Sodium 1 gm/ (Sodium Chloride) 50 mls @ 100 mls/hr IV Q24H [facility] Insulin Aspart (Novolog) 0 unit SUBCUT QIDACANDBED [facility] PRN Reason: Protocol Last Admin: 11/18/16 07:59 Dose: 2 units Insulin Detemir (Levemir) 18 unit SUBCUT BID [facility] Last Admin: 11/18/16 08:08 Dose: 18 units Losartan Potassium (Cozaar) 50 mg PO BID [facility] Last Admin: 11/17/16 20:58 Dose: 50 mg Magnesium Hydroxide (Milk Of Magnesia) 30 ml PO Q12H PRN PRN Reason: Constipation Ondansetron HCl (Zofran) 4 mg IV Q4H PRN PRN Reason: Nausea/Vomiting Oxycodone HCl (Oxycodone) 5 mg PO Q4H PRN PRN Reason: Pain (moderate 4-6) Polyethylene Glycol (Miralax) 17 gm PO DAILY PRN PRN Reason: Constipation Simvastatin (Zocor) 20 mg PO BEDTIME [facility] Last Admin: 11/17/16 20:59 Dose: 20 mg Sodium Chloride (Saline Flush) 10 ml FLUSH ASDIRECTED PRN PRN Reason: Keep Vein Open Terazosin HCl (Hytrin) 10 mg PO DAILY [facility] Discontinued Medications Enoxaparin Sodium (Lovenox) 30 mg SUBCUT DAILY [facility] Last Admin: 11/17/16 20:58 Dose: 30 mg Sodium Chloride (Normal Saline) 1,000 mls @ 999 mls/hr IV ASDIRECTED [facility] Last Admin: 11/17/16 17:45 Dose: 999 mls/hr Ceftriaxone Sodium 1 gm/ (Sodium Chloride) 50 mls @ 100 mls/hr IV ONETIME ONE Stop: 11/17/16 18:10 Last Admin: 11/17/16 17:54 Dose: 100 mls/hr Sodium Chloride (Normal Saline) 1,000 mls @ 500 mls/hr IV ASDIRECTED [facility] Last Admin: 11/17/16 18:42 Dose: 500 mls/hr Lactated Ringer's (Ringers, Lactated) 500 mls @ 500 mls/hr IV .BOLUS [facility] Stop: 11/17/16 23:37 Last Admin: 11/17/16 20:47 Dose: 500 mls/hr Lactated Ringer's (Ringers, Lactated) 1,000 mls @ 125 mls/hr IV ASDIRECTED [facility] Last Admin: 11/18/16 05:21 Dose: 125 mls/hr Ibuprofen (Motrin) 800 mg PO ONETIME ONE Stop: 11/17/16 17:34 Last Admin: 11/17/16 21:44 Dose: Not Given Ibuprofen (Motrin 100 Mg/5 Ml Susp) 600 mg PO ONETIME ONE Stop: 11/17/16 17:38 Last Admin: 11/17/16 17:45 Dose: 600 mg Insulin Detemir (Levemir) 18 unit SUBCUT BID [facility] Last Admin: 11/17/16 21:40 Dose: 18 units - Exam Quality Assessment: DVT Prophylaxis General: Alert, Oriented, Cooperative, Mild Distress Lungs: Clear to Auscultation, Normal Respiratory Effort Cardiovascular: Regular Rate, Regular Rhythm, No Murmurs GI/Abdominal Exam: Normal Bowel Sounds, Soft, Non-Tender, No Distention Extremities: Non-Tender, Pedal Edema Skin: Warm, Dry, Intact - Problem List Review Problem List Initiated/Reviewed/Updated: Yes - My Orders Last 24 Hours: My Active Orders 11/17/16 19:02 Resuscitation Status Routine 11/17/16 19:36 Patient Status [ADT] Routine Ambulate [RC] QID Blood Glucose Check, Bedside [RC] QIDACANDBED Communication Order [RC] ASDIRECTED Diabetes Education [RC] Click to Edit Intake and Output [RC] QSHIFT Notify Provider Vital Signs [RC] ASDIRECTED Notify Provider [RC] PRN Oxygen Therapy [RC] PRN Peripheral IV Care [RC] Q12H Up With Assistance [RC] ASDIRECTED Up to Chair [RC] QID VTE/DVT Education [RC] Per Unit Routine Vital Signs [RC] Q2H PT Evaluation and Treatment [CONS] Routine Acetaminophen [Tylenol] 650 mg PO Q4H PRN Dextrose 50% in Water 50 ml IV ONETIME PRN Dextrose [Glutose 15] 15 gm PO ONETIME PRN Docusate Sodium [Colace] 100 mg PO BID PRN Magnesium Hydroxide [Milk of Magnesia] 30 ml PO Q12H PRN Ondansetron [Zofran] 4 mg IV Q4H PRN Polyethylene Glycol 3350 [MiraLAX] 17 gm PO DAILY PRN Sodium Chloride 0.9% [Saline Flush] 10 ml FLUSH ASDIRECTED PRN oxyCODONE 5 mg PO Q4H PRN Peripheral IV Insertion Adult [OM.PC] Routine 11/17/16 20:00 Insulin Aspart [NovoLOG] See Protocol SUBCUT QIDACANDBED 11/17/16 Dinner Consistent Carbohydrate Diet [DIET] 11/18/16 07:46 Insulin Detemir [Levemir] 18 unit SUBCUT BID 11/18/16 09:45 Lactated Ringers [Ringers, Lactated] 1,000 ml IV ASDIRECTED 11/18/16 17:00 Enoxaparin [Lovenox] 30 mg SUBCUT QPM cefTRIAXone [Rocephin] 1 gm Sodium Chloride 0.9% [Normal Saline] 50 ml IV Q24H 11/19/16 05:00 BASIC METABOLIC PANEL,BMP [CHEM] Timed CBC WITH AUTO DIFF [HEME] Timed MAGNESIUM [CHEM] Timed 11/19/16 07:30 GLUCOSE POC LAB TO COLLECT [POC] QIDACANDBED 11/19/16 11:30 GLUCOSE POC LAB TO COLLECT [POC] QIDACANDBED 11/19/16 14:00 FLU Vacc [id number](65YR UP)/PF [Fluzone High-Dose ] 180 mcg IM .ONCE ONE 11/19/16 16:30 GLUCOSE POC LAB TO COLLECT [POC] QIDACANDBED 11/19/16 21:00 GLUCOSE POC LAB TO COLLECT [POC] QIDACANDBED 11/20/16 07:30 GLUCOSE POC LAB TO COLLECT [POC] QIDACANDBED 11/20/16 11:30 GLUCOSE POC LAB TO COLLECT [POC] QIDACANDBED 11/20/16 16:30 GLUCOSE POC LAB TO COLLECT [POC] QIDACANDBED 11/20/16 21:00 GLUCOSE POC LAB TO COLLECT [POC] QIDACANDBED 11/21/16 07:30 GLUCOSE POC LAB TO COLLECT [POC] QIDACANDBED 11/21/16 11:30 GLUCOSE POC LAB TO COLLECT [POC] QIDACANDBED 11/21/16 16:30 GLUCOSE POC LAB TO COLLECT [POC] QIDACANDBED 11/21/16 21:00 GLUCOSE POC LAB TO COLLECT [POC] QIDACANDBED 11/22/16 07:30 GLUCOSE POC LAB TO COLLECT [POC] QIDACANDBED 11/22/16 11:30 GLUCOSE POC LAB TO COLLECT [POC] QIDACANDBED 11/22/16 16:30 GLUCOSE POC LAB TO COLLECT [POC] QIDACANDBED 11/22/16 21:00 GLUCOSE POC LAB TO COLLECT [POC] QIDACANDBED 11/23/16 07:30 GLUCOSE POC LAB TO COLLECT [POC] QIDACANDBED 11/23/16 11:30 GLUCOSE POC LAB TO COLLECT [POC] QIDACANDBED 11/23/16 16:30 GLUCOSE POC LAB TO COLLECT [POC] QIDACANDBED 11/23/16 21:00 GLUCOSE POC LAB TO COLLECT [POC] QIDACANDBED 11/24/16 07:30 GLUCOSE POC LAB TO COLLECT [POC] QIDACANDBED 11/24/16 11:30 GLUCOSE POC LAB TO COLLECT [POC] QIDACANDBED 11/24/16 16:30 GLUCOSE POC LAB TO COLLECT [POC] QIDACANDBED 11/24/16 21:00 GLUCOSE POC LAB TO COLLECT [POC] QIDACANDBED 11/25/16 07:30 GLUCOSE POC LAB TO COLLECT [POC] QIDACANDBED 11/25/16 11:30 GLUCOSE POC LAB TO COLLECT [POC] QIDACANDBED 11/25/16 16:30 GLUCOSE POC LAB TO COLLECT [POC] QIDACANDBED 11/25/16 21:00 GLUCOSE POC LAB TO COLLECT [POC] QIDACANDBED 11/26/16 07:30 GLUCOSE POC LAB TO COLLECT [POC] QIDACANDBED 11/26/16 11:30 GLUCOSE POC LAB TO COLLECT [POC] QIDACANDBED 11/26/16 16:30 GLUCOSE POC LAB TO COLLECT [POC] QIDACANDBED 11/26/16 21:00 GLUCOSE POC LAB TO COLLECT [POC] QIDACANDBED 11/27/16 07:30 GLUCOSE POC LAB TO COLLECT [POC] QIDACANDBED 11/27/16 11:30 GLUCOSE POC LAB TO COLLECT [POC] QIDACANDBED 11/27/16 16:30 GLUCOSE POC LAB TO COLLECT [POC] QIDACANDBED 11/27/16 21:00 GLUCOSE POC LAB TO COLLECT [POC] QIDACANDBED 11/28/16 07:30 GLUCOSE POC LAB TO COLLECT [POC] QIDACANDBED 11/28/16 11:30 GLUCOSE POC LAB TO COLLECT [POC] QIDACANDBED 11/28/16 16:30 GLUCOSE POC LAB TO COLLECT [POC] QIDACANDBED - Plan Plan:: ASSESSMENT AND PLAN COMPLICATED URINARY TRACT INFECTION WITH SEPSIS-recent difficulty with recurrent urinary tract infection, recent culture growing Escherichia coli sensitive to ceftriaxone. Blood cultures obtained yesterday are growing gram- negative rods, final ID and sensitivities pending -Repeat urine culture and blood cultures pending -Decrease IV rate to 75 mL/h -Rocephin 1 g IV every 24 hours pending follow-up culture results -Outpatient urology evaluation CHRONIC KIDNEY DISEASE STAGE III-renal function has worsened modestly since admission, likely secondary to sepsis and intravascular volume depletion -Closely monitor urine output and renal function during hospital stay TYPE 2 DIABETES MELLITUS -4 times a day glucometers -Continue usual dose of long-acting insulin -Moderate dose sliding scale NovoLog MAINTENANCE ISSUES -DVT prophylaxis; Lovenox 30 mg subcutaneous daily -GI prophylaxis; not indicated -Barrientos catheter; not indicated -Nutrition; consistent carb diet -Nicotine dependence; not required CODE STATUS-FULL CODE ADMISSION STATUS-patient will be admitted to inpatient status, expect at least a 2 night hospital stay for evaluation and management of problems as outlined above. At the time of this admission I do not reasonably expected evaluation and management of this problem will require more than a 96 hour hospital stay. DISPOSITION-anticipate discharge to home after the hospital stay. PRIMARY CARE PROVIDER-Dr. Kendall
[2016-11-18] MEDS: Losartan 50 MG Tab PO SCH ×2 (09:50→20:34)
[2016-11-18] MEDS: Carvedilol 12.5 MG Tab PO SCH ×2 (09:50→20:33)
[2016-11-18] MEDS: Terazosin 5 MG Cap PO SCH (09:54)
[2016-11-18] MEDS: Aspirin 81 MG Tab.EC PO SCH (09:55)
[2016-11-18] MEDS ORDERED: FLU Vacc TS 2017-18 (65yr UP)/PF 180 MCG/0.5 ML Syringe IM ONE ×2 (10:00→14:00)
[2016-11-18] MEDS: Acetaminophen 325 MG Tab PO PRN ×3 (12:01→20:33)
[2016-11-18] MEDS: Lactated Ringers 1,000 ML IV SCH (14:15)
[2016-11-18] MEDS: Furosemide 40 MG Tab PO SCH (14:46)
[2016-11-18] MEDS: Enoxaparin 30 MG/0.3 ML Syringe SUBCUT SCH (16:41)
[2016-11-18] MEDS: cefTRIAXone 1 GM in Sodium Chloride 0.9% 50 ML IV SCH (16:45)
[2016-11-18] MEDS: Simvastatin 20 MG Tab PO SCH (20:34)
[2016-11-19] MEDS: Acetaminophen 325 MG Tab PO PRN ×3 (02:01→19:42)
[2016-11-19] MEDS: Lactated Ringers 1,000 ML IV SCH (04:28)
[2016-11-19] MEDS: Insulin Aspart 100 Units/ML 3 ML Pen SUBCUT SCH ×4 (07:54→20:35)
[2016-11-19] MEDS: Aspirin 81 MG Tab.EC PO SCH (08:09)
[2016-11-19] MEDS: Furosemide 40 MG Tab PO SCH ×2 (08:09→13:41)
[2016-11-19] MEDS: Insulin Detemir 100 Units/ML 3 ML Pen SUBCUT SCH ×2 (08:09→20:35)
[2016-11-19] MEDS: Losartan 50 MG Tab PO SCH ×2 (08:09→20:27)
[2016-11-19] MEDS: Carvedilol 12.5 MG Tab PO SCH ×2 (08:09→20:40)
[2016-11-19] MEDS: Terazosin 5 MG Cap PO SCH (08:10)
[2016-11-19] MEDS ORDERED: Magnesium Sulfate/Water 2 GM in Premix Bag 1 BAG IV ONE (09:00)
--- NOTE | 2016-11-19 09:10 | PCM.PN ---
- General Info Date of Service: 11/19/16 Functional Status: Reports: Pain Controlled, Tolerating Diet, Urinating - Review of Systems General: Reports: Fever, Weakness, Chills Pulmonary: Reports: No Symptoms Cardiovascular: Reports: No Symptoms Gastrointestinal: Reports: No Symptoms Genitourinary: Reports: Frequency, Urgency, Incontinence Systems Review Comment:: This patient has improved over the past 24 hours, he did have recurrent temperature elevation last night with shaking chills. Only low-grade temperature elevation since that time, energy level and appetite seem to be improving. White blood cell count has normalized again. - Patient Data Vitals - Most Recent: Last Vital Signs Temp 100.3 F 11/19/16 08:14 Pulse 79 11/19/16 08:09 Resp 16 11/19/16 07:52 BP 155/71 H 11/19/16 08:10 Pulse Ox 98 11/19/16 07:52 Weight - Most Recent: 274 lb 11.135 oz I&O - Last 24 Hours: Intake & Output 11/18/16 11/19/16 11/19/16 22:59 06:59 14:59 Intake Total 1181 851 480 Output Total 450 400 200 Balance 731 451 280 Lab Results Last 24 Hours: Laboratory Results - last 24 hr 11/18/16 11/19/16 11/19/16 Range/Units 17:00 05:06 05:06 WBC 10.7 (4.5-11.0) K/uL RBC 3.41 L (4.30-5.90) M/uL Hgb 10.5 L (12.0-15.0) g/dL Hct 33.8 L (40.0-54.0) % MCV 99 H (80-98) fL MCH 31 (27-31) pg MCHC 31 L (32-36) % Plt Count 160 (150-400) K/uL Neut % (Auto) 79 H (36-66) % Lymph % (Auto) 5 L (24-44) % Yell % (Auto) 16 H (2-6) % Eos % (Auto) 0 L (2-4) % Baso % (Auto) 0 (0-1) % Sodium 139 L 142 (140-148) mmol/L Potassium 4.6 4.0 (3.6-5.2) mmol/L Chloride 105 109 H (100-108) mmol/L Carbon Dioxide 27 28 (21-32) mmol/L Anion Gap 11.6 9.0 (5.0-14.0) mmol/L BUN 48 H 48 H (7-18) mg/dL Creatinine 2.6 H 2.7 H (0.8-1.3) mg/dL Est Cr Clr Drug Dosing 25.06 24.13 mL/min Estimated GFR (MDRD) 24 L 23 L (>60) Glucose 206 H 74 (74-106) mg/dL Calcium 8.4 L 8.0 L (8.5-10.1) mg/dL Magnesium 1.7 L (1.8-2.4) mg/dL Phil Results Last 24 Hours: Microbiology 11/17/16 19:01 Urine Culture - Preliminary Urine, Voided Med Orders - Current: Current Medications Acetaminophen (Tylenol) 650 mg PO Q4H PRN PRN Reason: Pain (Mild 1-3)/fever Last Admin: 11/19/16 08:14 Dose: 650 mg Aspirin (Halfprin) 81 mg PO DAILY [facility] Last Admin: 11/19/16 08:09 Dose: 81 mg Carvedilol (Coreg) 12.5 mg PO BID [facility] Last Admin: 11/19/16 08:09 Dose: 12.5 mg Dextrose (Glutose 15) 15 gm PO ONETIME PRN PRN Reason: Hypoglycemia Dextrose/Water (Dextrose 50% In Water) 50 ml IV ONETIME PRN PRN Reason: Hypoglycemia Docusate Sodium (Colace) 100 mg PO BID PRN PRN Reason: Constipation Last Admin: 11/17/16 20:59 Dose: 100 mg Enoxaparin Sodium (Lovenox) 30 mg SUBCUT QPM [facility] Last Admin: 11/18/16 16:41 Dose: 30 mg Furosemide (Lasix) 40 mg PO BIDDIURETIC [facility] Last Admin: 11/19/16 08:09 Dose: 40 mg Ceftriaxone Sodium 1 gm/ (Sodium Chloride) 50 mls @ 100 mls/hr IV Q24H [facility] Last Admin: 11/18/16 16:45 Dose: 100 mls/hr Magnesium Sulfate 2 gm/ Premix 50 mls @ 25 mls/hr IV ONETIME ONE Stop: 11/19/16 10:59 Insulin Aspart (Novolog) 0 unit SUBCUT QIDACANDBED [facility] PRN Reason: Protocol Last Admin: 11/19/16 07:54 Dose: Not Given Insulin Detemir (Levemir) 18 unit SUBCUT BID [facility] Last Admin: 11/19/16 08:09 Dose: 18 units Losartan Potassium (Cozaar) 50 mg PO BID [facility] Last Admin: 11/19/16 08:09 Dose: 50 mg Magnesium Hydroxide (Milk Of Magnesia) 30 ml PO Q12H PRN PRN Reason: Constipation Ondansetron HCl (Zofran) 4 mg IV Q4H PRN PRN Reason: Nausea/Vomiting Last Admin: 11/18/16 12:02 Dose: 4 mg Oxycodone HCl (Oxycodone) 5 mg PO Q4H PRN PRN Reason: Pain (moderate 4-6) Polyethylene Glycol (Miralax) 17 gm PO DAILY PRN PRN Reason: Constipation Simvastatin (Zocor) 20 mg PO BEDTIME [facility] Last Admin: 11/18/16 20:34 Dose: 20 mg Sodium Chloride (Saline Flush) 10 ml FLUSH ASDIRECTED PRN PRN Reason: Keep Vein Open Terazosin HCl (Hytrin) 10 mg PO DAILY [facility] Last Admin: 11/19/16 08:10 Dose: 10 mg Discontinued Medications Enoxaparin Sodium (Lovenox) 30 mg SUBCUT DAILY [facility] Last Admin: 11/17/16 20:58 Dose: 30 mg Furosemide (Lasix) 40 mg PO BID [facility] Last Admin: 11/18/16 09:53 Dose: 40 mg Sodium Chloride (Normal Saline) 1,000 mls @ 999 mls/hr IV ASDIRECTED [facility] Last Admin: 11/17/16 17:45 Dose: 999 mls/hr Ceftriaxone Sodium 1 gm/ (Sodium Chloride) 50 mls @ 100 mls/hr IV ONETIME ONE Stop: 11/17/16 18:10 Last Admin: 11/17/16 17:54 Dose: 100 mls/hr Sodium Chloride (Normal Saline) 1,000 mls @ 500 mls/hr IV ASDIRECTED [facility] Last Admin: 11/17/16 18:42 Dose: 500 mls/hr Lactated Ringer's (Ringers, Lactated) 500 mls @ 500 mls/hr IV .BOLUS [facility] Stop: 11/17/16 23:37 Last Admin: 11/17/16 20:47 Dose: 500 mls/hr Lactated Ringer's (Ringers, Lactated) 1,000 mls @ 125 mls/hr IV ASDIRECTED [facility] Last Admin: 11/18/16 05:21 Dose: 125 mls/hr Lactated Ringer's (Ringers, Lactated) 1,000 mls @ 75 mls/hr IV ASDIRECTED [facility] Last Admin: 11/19/16 04:28 Dose: 75 mls/hr Ibuprofen (Motrin) 800 mg PO ONETIME ONE Stop: 11/17/16 17:34 Last Admin: 11/17/16 21:44 Dose: Not Given Ibuprofen (Motrin 100 Mg/5 Ml Susp) 600 mg PO ONETIME ONE Stop: 11/17/16 17:38 Last Admin: 11/17/16 17:45 Dose: 600 mg Insulin Detemir (Levemir) 18 unit SUBCUT BID [facility] Last Admin: 11/17/16 21:40 Dose: 18 units - Exam Quality Assessment: DVT Prophylaxis General: Alert, Oriented, Cooperative, No Acute Distress Lungs: Clear to Auscultation, Normal Respiratory Effort Cardiovascular: Regular Rate, Regular Rhythm, No Murmurs GI/Abdominal Exam: Normal Bowel Sounds, Soft, Non-Tender, No Distention Extremities: Non-Tender, Pedal Edema Skin: Warm, Dry - Problem List Review Problem List Initiated/Reviewed/Updated: Yes - My Orders Last 24 Hours: My Active Orders 11/18/16 14:00 Furosemide [Lasix] 40 mg PO BIDDIURETIC 11/18/16 17:00 Enoxaparin [Lovenox] 30 mg SUBCUT QPM cefTRIAXone [Rocephin] 1 gm Sodium Chloride 0.9% [Normal Saline] 50 ml IV Q24H 11/19/16 09:00 Magnesium Sulfate/Water [Magnesium Sulfate 2 GM in Water 50 ML] 2 gm Premix Bag 1 bag IV ONETIME 11/19/16 09:03 Cardiac Monitoring Discontinue [RC] Click to Edit Convert IV to Saline Lock [OM.PC] Routine 11/19/16 09:06 Vital Signs [RC] Q4H 11/20/16 05:00 BASIC METABOLIC PANEL,BMP [CHEM] Timed MAGNESIUM [CHEM] Timed 11/20/16 07:30 GLUCOSE POC LAB TO COLLECT [POC] QIDACANDBED 11/20/16 11:30 GLUCOSE POC LAB TO COLLECT [POC] QIDACANDBED 11/20/16 16:30 GLUCOSE POC LAB TO COLLECT [POC] QIDACANDBED 11/20/16 21:00 GLUCOSE POC LAB TO COLLECT [POC] QIDACANDBED 11/21/16 07:30 GLUCOSE POC LAB TO COLLECT [POC] QIDACANDBED 11/21/16 11:30 GLUCOSE POC LAB TO COLLECT [POC] QIDACANDBED 11/21/16 16:30 GLUCOSE POC LAB TO COLLECT [POC] QIDACANDBED 11/21/16 21:00 GLUCOSE POC LAB TO COLLECT [POC] QIDACANDBED 11/22/16 07:30 GLUCOSE POC LAB TO COLLECT [POC] QIDACANDBED 11/22/16 11:30 GLUCOSE POC LAB TO COLLECT [POC] QIDACANDBED 11/22/16 16:30 GLUCOSE POC LAB TO COLLECT [POC] QIDACANDBED 11/22/16 21:00 GLUCOSE POC LAB TO COLLECT [POC] QIDACANDBED 11/23/16 07:30 GLUCOSE POC LAB TO COLLECT [POC] QIDACANDBED 11/23/16 11:30 GLUCOSE POC LAB TO COLLECT [POC] QIDACANDBED 11/23/16 16:30 GLUCOSE POC LAB TO COLLECT [POC] QIDACANDBED 11/23/16 21:00 GLUCOSE POC LAB TO COLLECT [POC] QIDACANDBED 11/24/16 07:30 GLUCOSE POC LAB TO COLLECT [POC] QIDACANDBED 11/24/16 11:30 GLUCOSE POC LAB TO COLLECT [POC] QIDACANDBED 11/24/16 16:30 GLUCOSE POC LAB TO COLLECT [POC] QIDACANDBED 11/24/16 21:00 GLUCOSE POC LAB TO COLLECT [POC] QIDACANDBED 11/25/16 07:30 GLUCOSE POC LAB TO COLLECT [POC] QIDACANDBED 11/25/16 11:30 GLUCOSE POC LAB TO COLLECT [POC] QIDACANDBED 11/25/16 16:30 GLUCOSE POC LAB TO COLLECT [POC] QIDACANDBED 11/25/16 21:00 GLUCOSE POC LAB TO COLLECT [POC] QIDACANDBED 11/26/16 07:30 GLUCOSE POC LAB TO COLLECT [POC] QIDACANDBED 11/26/16 11:30 GLUCOSE POC LAB TO COLLECT [POC] QIDACANDBED 11/26/16 16:30 GLUCOSE POC LAB TO COLLECT [POC] QIDACANDBED 11/26/16 21:00 GLUCOSE POC LAB TO COLLECT [POC] QIDACANDBED 11/27/16 07:30 GLUCOSE POC LAB TO COLLECT [POC] QIDACANDBED 11/27/16 11:30 GLUCOSE POC LAB TO COLLECT [POC] QIDACANDBED 11/27/16 16:30 GLUCOSE POC LAB TO COLLECT [POC] QIDACANDBED 11/27/16 21:00 GLUCOSE POC LAB TO COLLECT [POC] QIDACANDBED 11/28/16 07:30 GLUCOSE POC LAB TO COLLECT [POC] QIDACANDBED 11/28/16 11:30 GLUCOSE POC LAB TO COLLECT [POC] QIDACANDBED 11/28/16 16:30 GLUCOSE POC LAB TO COLLECT [POC] QIDACANDBED - Plan Plan:: ASSESSMENT AND PLAN COMPLICATED URINARY TRACT INFECTION WITH SEPSIS-recent difficulty with recurrent urinary tract infection, recent culture growing Escherichia coli sensitive to ceftriaxone. Blood cultures are negative thus far, urine culture growing gram-negative troy -Repeat urine culture and blood cultures pending -Saline lock IV -Rocephin 1 g IV every 24 hours pending follow-up culture results -Outpatient urology evaluation CHRONIC KIDNEY DISEASE STAGE III-renal function stable since yesterday, creatinine does remain elevated from baseline. -Closely monitor urine output and renal function during hospital stay TYPE 2 DIABETES MELLITUS -4 times a day glucometers -Continue usual dose of long-acting insulin -Moderate dose sliding scale [employer] MAINTENANCE ISSUES -DVT prophylaxis; Lovenox 30 mg subcutaneous daily -GI prophylaxis; not indicated -Barrientos catheter; not indicated -Nutrition; consistent carb diet -Nicotine dependence; not required CODE STATUS-FULL CODE ADMISSION STATUS-patient will be admitted to inpatient status, expect at least a 2 night hospital stay for evaluation and management of problems as outlined above. At the time of this admission I do not reasonably expected evaluation and management of this problem will require more than a 96 hour hospital stay. DISPOSITION-anticipate discharge to home after the hospital stay. PRIMARY CARE PROVIDER-Dr. Kendall
[2016-11-19] MEDS: Enoxaparin 30 MG/0.3 ML Syringe SUBCUT SCH (16:29)
[2016-11-19] MEDS: cefTRIAXone 1 GM in Sodium Chloride 0.9% 50 ML IV SCH (16:29)
[2016-11-19] MEDS: Simvastatin 20 MG Tab PO SCH (20:41)
[2016-11-20] MEDS: Acetaminophen 325 MG Tab PO PRN (02:36)
[2016-11-20] MEDS: Insulin Aspart 100 Units/ML 3 ML Pen SUBCUT SCH ×4 (09:18→20:44)
[2016-11-20] MEDS: Furosemide 40 MG Tab PO SCH ×2 (09:22→14:19)
[2016-11-20] MEDS: Terazosin 5 MG Cap PO SCH (09:22)
[2016-11-20] MEDS: Losartan 50 MG Tab PO SCH ×2 (09:22→20:52)
[2016-11-20] MEDS: Aspirin 81 MG Tab.EC PO SCH (09:22)
[2016-11-20] MEDS: Carvedilol 12.5 MG Tab PO SCH ×2 (09:22→20:53)
[2016-11-20] MEDS: Insulin Detemir 100 Units/ML 3 ML Pen SUBCUT SCH ×2 (09:23→20:45)
--- NOTE | 2016-11-20 10:05 | PCM.PN ---
- General Info Date of Service: 11/20/16 Functional Status: Reports: Tolerating Diet, Ambulating, Urinating - Review of Systems General: Reports: Fever, Weakness, Chills Pulmonary: Reports: No Symptoms Cardiovascular: Reports: No Symptoms Gastrointestinal: Reports: No Symptoms Genitourinary: Reports: No Symptoms Systems Review Comment:: This patient has continued to experience recurrent temperature elevations although not as high as the previously and not associated with this many rigors or chills. His white count normalized yesterday, appetite is good and strength seems to be slowly improving. Blood and urine cultures growing Escherichia coli sensitive to ceftriaxone. - Patient Data Vitals - Most Recent: Last Vital Signs Temp 99.1 F 11/20/16 08:00 Pulse 78 11/20/16 09:22 Resp 16 11/20/16 08:00 BP 168/74 H 11/20/16 09:22 Pulse Ox 90 L 11/20/16 08:00 Weight - Most Recent: 274 lb 11.135 oz I&O - Last 24 Hours: Intake & Output 11/19/16 11/20/16 11/20/16 22:59 06:59 14:59 Intake Total 580 Output Total 450 200 Balance -450 380 Lab Results Last 24 Hours: Laboratory Results - last 24 hr 11/20/16 Range/Units 05:30 Sodium 141 (140-148) mmol/L Potassium 4.3 (3.6-5.2) mmol/L Chloride 106 (100-108) mmol/L Carbon Dioxide 27 (21-32) mmol/L Anion Gap 8.1 (5.0-14.0) mmol/L BUN 52 H (7-18) mg/dL Creatinine 2.6 H (0.8-1.3) mg/dL Est Cr Clr Drug Dosing 25.06 mL/min Estimated GFR (MDRD) 24 L (>60) Glucose 121 H (74-106) mg/dL Calcium 7.9 L (8.5-10.1) mg/dL Magnesium 2.1 (1.8-2.4) mg/dL Phil Results Last 24 Hours: Microbiology 11/17/16 19:01 Urine Culture - Final Urine, Voided Escherichia Coli Med Orders - Current: Current Medications Acetaminophen (Tylenol) 650 mg PO Q4H PRN PRN Reason: Pain (Mild 1-3)/fever Last Admin: 11/20/16 02:36 Dose: 650 mg Aspirin (Halfprin) 81 mg PO DAILY [facility] Last Admin: 11/20/16 09:22 Dose: 81 mg Carvedilol (Coreg) 12.5 mg PO BID [facility] Last Admin: 11/20/16 09:22 Dose: 12.5 mg Dextrose (Glutose 15) 15 gm PO ONETIME PRN PRN Reason: Hypoglycemia Dextrose/Water (Dextrose 50% In Water) 50 ml IV ONETIME PRN PRN Reason: Hypoglycemia Docusate Sodium (Colace) 100 mg PO BID PRN PRN Reason: Constipation Last Admin: 11/17/16 20:59 Dose: 100 mg Enoxaparin Sodium (Lovenox) 30 mg SUBCUT QPM [facility] Last Admin: 11/19/16 16:29 Dose: 30 mg Furosemide (Lasix) 40 mg PO BIDDIURETIC [facility] Last Admin: 11/20/16 09:22 Dose: 40 mg Ceftriaxone Sodium 1 gm/ (Sodium Chloride) 50 mls @ 100 mls/hr IV Q24H [facility] Last Admin: 11/19/16 16:29 Dose: 100 mls/hr Insulin Aspart (Novolog) 0 unit SUBCUT QIDACANDBED [facility] PRN Reason: Protocol Last Admin: 11/20/16 09:18 Dose: Not Given Insulin Detemir (Levemir) 18 unit SUBCUT BID [facility] Last Admin: 11/20/16 09:23 Dose: 18 units Losartan Potassium (Cozaar) 50 mg PO BID [facility] Last Admin: 11/20/16 09:22 Dose: 50 mg Magnesium Hydroxide (Milk Of Magnesia) 30 ml PO Q12H PRN PRN Reason: Constipation Ondansetron HCl (Zofran) 4 mg IV Q4H PRN PRN Reason: Nausea/Vomiting Last Admin: 11/18/16 12:02 Dose: 4 mg Oxycodone HCl (Oxycodone) 5 mg PO Q4H PRN PRN Reason: Pain (moderate 4-6) Polyethylene Glycol (Miralax) 17 gm PO DAILY PRN PRN Reason: Constipation Simvastatin (Zocor) 20 mg PO BEDTIME [facility] Last Admin: 11/19/16 20:41 Dose: 20 mg Sodium Chloride (Saline Flush) 10 ml FLUSH ASDIRECTED PRN PRN Reason: Keep Vein Open Terazosin HCl (Hytrin) 10 mg PO DAILY [facility] Last Admin: 11/20/16 09:22 Dose: 10 mg Discontinued Medications Enoxaparin Sodium (Lovenox) 30 mg SUBCUT DAILY [facility] Last Admin: 11/17/16 20:58 Dose: 30 mg Furosemide (Lasix) 40 mg PO BID [facility] Last Admin: 11/18/16 09:53 Dose: 40 mg Sodium Chloride (Normal Saline) 1,000 mls @ 999 mls/hr IV ASDIRECTED [facility] Last Admin: 11/17/16 17:45 Dose: 999 mls/hr Ceftriaxone Sodium 1 gm/ (Sodium Chloride) 50 mls @ 100 mls/hr IV ONETIME ONE Stop: 11/17/16 18:10 Last Admin: 11/17/16 17:54 Dose: 100 mls/hr Sodium Chloride (Normal Saline) 1,000 mls @ 500 mls/hr IV ASDIRECTED [facility] Last Admin: 11/17/16 18:42 Dose: 500 mls/hr Lactated Ringer's (Ringers, Lactated) 500 mls @ 500 mls/hr IV .BOLUS [facility] Stop: 11/17/16 23:37 Last Admin: 11/17/16 20:47 Dose: 500 mls/hr Lactated Ringer's (Ringers, Lactated) 1,000 mls @ 125 mls/hr IV ASDIRECTED [facility] Last Admin: 11/18/16 05:21 Dose: 125 mls/hr Lactated Ringer's (Ringers, Lactated) 1,000 mls @ 75 mls/hr IV ASDIRECTED [facility] Last Admin: 11/19/16 04:28 Dose: 75 mls/hr Magnesium Sulfate 2 gm/ Premix 50 mls @ 25 mls/hr IV ONETIME ONE Stop: 11/19/16 10:59 Last Admin: 11/19/16 09:12 Dose: 25 mls/hr Ibuprofen (Motrin) 800 mg PO ONETIME ONE Stop: 11/17/16 17:34 Last Admin: 11/17/16 21:44 Dose: Not Given Ibuprofen (Motrin 100 Mg/5 Ml Susp) 600 mg PO ONETIME ONE Stop: 11/17/16 17:38 Last Admin: 11/17/16 17:45 Dose: 600 mg Influenza Virus Vaccine (Fluzone High-Dose ) 180 mcg IM .ONCE ONE Stop: 11/18/16 14:01 Last Admin: 11/18/16 15:15 Dose: 180 mcg Insulin Detemir (Levemir) 18 unit SUBCUT BID [facility] Last Admin: 11/17/16 21:40 Dose: 18 units - Exam Quality Assessment: DVT Prophylaxis General: Alert, Oriented, Cooperative, No Acute Distress Lungs: Clear to Auscultation, Normal Respiratory Effort Cardiovascular: Regular Rate, Regular Rhythm, No Murmurs GI/Abdominal Exam: Normal Bowel Sounds, Soft, Non-Tender Extremities: Non-Tender, Pedal Edema Skin: Warm, Dry, Intact - Problem List Review Problem List Initiated/Reviewed/Updated: Yes - My Orders Last 24 Hours: My Active Orders 11/19/16 09:03 Convert IV to Saline Lock [OM.PC] Routine 11/19/16 09:06 Vital Signs [RC] Q4H 11/21/16 05:00 BASIC METABOLIC PANEL,BMP [CHEM] Timed 11/21/16 07:30 GLUCOSE POC LAB TO COLLECT [POC] QIDACANDBED 11/21/16 11:30 GLUCOSE POC LAB TO COLLECT [POC] QIDACANDBED 11/21/16 16:30 GLUCOSE POC LAB TO COLLECT [POC] QIDACANDBED 11/21/16 21:00 GLUCOSE POC LAB TO COLLECT [POC] QIDACANDBED 11/22/16 07:30 GLUCOSE POC LAB TO COLLECT [POC] QIDACANDBED 11/22/16 11:30 GLUCOSE POC LAB TO COLLECT [POC] QIDACANDBED 11/22/16 16:30 GLUCOSE POC LAB TO COLLECT [POC] QIDACANDBED 11/22/16 21:00 GLUCOSE POC LAB TO COLLECT [POC] QIDACANDBED 11/23/16 07:30 GLUCOSE POC LAB TO COLLECT [POC] QIDACANDBED 11/23/16 11:30 GLUCOSE POC LAB TO COLLECT [POC] QIDACANDBED 11/23/16 16:30 GLUCOSE POC LAB TO COLLECT [POC] QIDACANDBED 11/23/16 21:00 GLUCOSE POC LAB TO COLLECT [POC] QIDACANDBED 11/24/16 07:30 GLUCOSE POC LAB TO COLLECT [POC] QIDACANDBED 11/24/16 11:30 GLUCOSE POC LAB TO COLLECT [POC] QIDACANDBED 11/24/16 16:30 GLUCOSE POC LAB TO COLLECT [POC] QIDACANDBED 11/24/16 21:00 GLUCOSE POC LAB TO COLLECT [POC] QIDACANDBED 11/25/16 07:30 GLUCOSE POC LAB TO COLLECT [POC] QIDACANDBED 11/25/16 11:30 GLUCOSE POC LAB TO COLLECT [POC] QIDACANDBED 11/25/16 16:30 GLUCOSE POC LAB TO COLLECT [POC] QIDACANDBED 11/25/16 21:00 GLUCOSE POC LAB TO COLLECT [POC] QIDACANDBED 11/26/16 07:30 GLUCOSE POC LAB TO COLLECT [POC] QIDACANDBED 11/26/16 11:30 GLUCOSE POC LAB TO COLLECT [POC] QIDACANDBED 11/26/16 16:30 GLUCOSE POC LAB TO COLLECT [POC] QIDACANDBED 11/26/16 21:00 GLUCOSE POC LAB TO COLLECT [POC] QIDACANDBED 11/27/16 07:30 GLUCOSE POC LAB TO COLLECT [POC] QIDACANDBED 11/27/16 11:30 GLUCOSE POC LAB TO COLLECT [POC] QIDACANDBED 11/27/16 16:30 GLUCOSE POC LAB TO COLLECT [POC] QIDACANDBED 11/27/16 21:00 GLUCOSE POC LAB TO COLLECT [POC] QIDACANDBED 11/28/16 07:30 GLUCOSE POC LAB TO COLLECT [POC] QIDACANDBED 11/28/16 11:30 GLUCOSE POC LAB TO COLLECT [POC] QIDACANDBED 11/28/16 16:30 GLUCOSE POC LAB TO COLLECT [POC] QIDACANDBED - Plan Plan:: ASSESSMENT AND PLAN COMPLICATED URINARY TRACT INFECTION WITH PYELONEPHRITIS AND SEPSIS-recent difficulty with recurrent urinary tract infection, current blood and urine cultures growing Escherichia coli sensitive to ceftriaxone. -Saline lock IV -Rocephin 1 g IV every 24 hours pending follow-up culture results -Outpatient urology evaluation CHRONIC KIDNEY DISEASE STAGE III-renal function stable since yesterday, creatinine does remain elevated from baseline. -Closely monitor urine output and renal function during hospital stay TYPE 2 DIABETES MELLITUS -4 times a day glucometers -Continue usual dose of long-acting insulin -Moderate dose sliding scale NovoLog MAINTENANCE ISSUES -DVT prophylaxis; Lovenox 30 mg subcutaneous daily -GI prophylaxis; not indicated -Barrientos catheter; not indicated -Nutrition; consistent carb diet -Nicotine dependence; not required CODE STATUS-FULL CODE ADMISSION STATUS-patient will be admitted to inpatient status, expect at least a 2 night hospital stay for evaluation and management of problems as outlined above. At the time of this admission I do not reasonably expected evaluation and management of this problem will require more than a 96 hour hospital stay. DISPOSITION-anticipate discharge to home after the hospital stay. PRIMARY CARE PROVIDER-Dr. Kendall
[2016-11-20] MEDS: cefTRIAXone 1 GM in Sodium Chloride 0.9% 50 ML IV SCH (16:29)
[2016-11-20] MEDS: Enoxaparin 30 MG/0.3 ML Syringe SUBCUT SCH (16:30)
[2016-11-20] MEDS: Simvastatin 20 MG Tab PO SCH (20:53)
[2016-11-21] MEDS: Insulin Aspart 100 Units/ML 3 ML Pen SUBCUT SCH (08:04)
[2016-11-21 08:06] VITALS: BP 158/88
[2016-11-21] MEDS: Carvedilol 12.5 MG Tab PO SCH (08:15)
[2016-11-21] MEDS: Furosemide 40 MG Tab PO SCH (08:15)
[2016-11-21] MEDS: Losartan 50 MG Tab PO SCH (08:15)
[2016-11-21] MEDS: Aspirin 81 MG Tab.EC PO SCH (08:15)
[2016-11-21] MEDS: Terazosin 5 MG Cap PO SCH (08:16)
[2016-11-21] MEDS: Insulin Detemir 100 Units/ML 3 ML Pen SUBCUT SCH (08:16)
--- NOTE | 2016-11-21 09:17 | PCM.DCSUM1 ---
Discharge Summary - Hospital Course Brief History: This patient is an 81-year-old gentleman who is admitted through the emergency department with weakness, fever, chills secondary to urinary tract infection with sepsis. - Discharge Data Discharge Date: 11/21/16 Discharge Disposition: Home, Self-Care 01 Condition: Fair - Discharge Diagnosis/Problem(s) (1) Sepsis SNOMED Code(s): 76976943 ICD Code: A41.9 - SEPSIS, UNSPECIFIED ORGANISM Status: Acute Current Visit: Yes (2) UTI (urinary tract infection) SNOMED Code(s): 47905036 ICD Code: N39.0 - URINARY TRACT INFECTION, SITE NOT SPECIFIED Status: Acute Current Visit: Yes (3) Diabetes mellitus type 2 SNOMED Code(s): 11222988 ICD Code: E11.9 - TYPE 2 DIABETES MELLITUS WITHOUT COMPLICATIONS Status: Chronic Current Visit: No (4) Chronic kidney disease (CKD), stage III (moderate) SNOMED Code(s): 379409327 ICD Code: N18.3 - CHRONIC KIDNEY DISEASE, STAGE 3 (MODERATE) Status: Chronic Current Visit: No - Patient Summary/Data Consults: Consultations 11/17/16 19:36 PT Evaluation and Treatment [CONS] Routine Please Evaluate and Treat. PT Reason for Consult: Strengthening This query below is only for informational purposes and is not editable. Hospital Course: This patient is an 81-year-old gentleman who developed symptoms of fever, chills , and profound weakness on the day of admission. He presented to the emergency department for further evaluation and was found to have urinary tract infection , there was mild elevation in lactic acid level and tachycardia with significant temperature elevation consistent with sepsis. He was given vigorous IV fluid replacement. Blood and urine cultures were obtained and he was started on IV antibiotic therapy with ceftriaxone. Earlier in the week he had a urinalysis which showed some bacteria and evidence of infection culture at that time grew out Escherichia coli. On admission was also noted to have acute on chronic renal insufficiency, at baseline has stage III chronic kidney disease. During his hospital course and following hydration renal function had returned to baseline by the time of discharge. Glucose levels were monitored throughout his hospital stay because of his known history of type 2 diabetes mellitus. He was managed with sliding scale NovoLog as needed. Urine and blood cultures all grew out Escherichia coli sensitive to ceftriaxone. By the time of discharge he had been afebrile for a period of 36 hours. He will be discharged home on an additional 7 days of oral antibiotic therapy with ciprofloxacin. During his hospital stay was noted to have significant hypoxia at night and witnessed apneic episodes. He will be discharged home on nocturnal oxygen and a sleep study will be scheduled. He already has a appointment pending with urology because of his recurrent urinary tract infections and a follow-up appointment will be made with Dr. Medina within one week. Activity will be as tolerated and he will resume his usual diabetic diet. - Patient Instructions Diet: Diabetic Diet Activity: As Tolerated Other/Special Instructions: Patient will need outpatient urology consult which the family is working on arranging. Schedule follow-up appointment with Dr. Medina within one week. Please set up home oxygen at the time of discharge, at night. Please schedule outpatient sleep study to evaluate for sleep apnea. - Discharge Plan Prescriptions/Med Rec: Ciprofloxacin HCl [Cipro] 500 mg PO BID #14 tablet Home Medications: Home Meds Carvedilol [Coreg] 0.5 tab PO BID 03/14/14 [History] Cholecalciferol (Vitamin D3) [Vitamin D3] 2,000 unit PO DAILY 03/14/14 [History] Insulin Glargine,Hum.Rec.Anlog [Lantus Solostar] 18 units SQ BID 03/14/14 [ History] Simvastatin [Zocor] 20 mg PO BEDTIME 03/14/14 [History] metroNIDAZOLE [metroNIDAZOLE 0.75% Gel] 45 gm .XX BID 03/14/14 [History] Aspirin [Ecotrin] 81 mg PO DAILY 11/14/16 [History] Furosemide [Lasix] 40 mg PO BID 11/14/16 [History] Losartan [Cozaar] 50 mg PO BID 11/14/16 [History] Multivitamin [Multi-Vitamin Daily] 1 tab PO DAILY 11/14/16 [History] Terazosin [Hytrin] 10 mg PO DAILY 11/14/16 [History] Ciprofloxacin HCl [Cipro] 500 mg PO BID #14 tablet 11/21/16 [Rx] Referrals: Adriano Kendall MD [Primary Care Provider] - - Patient Data Vitals - Most Recent: Last Vital Signs Temp 98.6 F 11/21/16 08:00 Pulse 78 11/21/16 08:15 Resp 12 11/21/16 08:00 BP 158/88 H 11/21/16 08:16 Pulse Ox 95 11/21/16 08:00 Weight - Most Recent: 274 lb 11.135 oz I&O - Last 24 hours: Intake & Output 11/20/16 11/21/16 11/21/16 22:59 06:59 14:59 Intake Total 450 500 Output Total 500 1150 Balance -50 -650 Lab Results - Last 24 hrs: Laboratory Results - last 24 hr 11/21/16 Range/Units 05:00 Sodium 143 (140-148) mmol/L Potassium 4.3 (3.6-5.2) mmol/L Chloride 109 H (100-108) mmol/L Carbon Dioxide 29 (21-32) mmol/L Anion Gap 9.3 (5.0-14.0) mmol/L BUN 48 H (7-18) mg/dL Creatinine 2.1 H (0.8-1.3) mg/dL Est Cr Clr Drug Dosing 31.03 mL/min Estimated GFR (MDRD) 30 L (>60) Glucose 94 (74-106) mg/dL Calcium 8.0 L (8.5-10.1) mg/dL [facility] Results - Last 24 hrs: Microbiology 11/17/16 19:01 Urine Culture - Final Urine, Voided Escherichia Coli Med Orders - Current: Current Medications Acetaminophen (Tylenol) 650 mg PO Q4H PRN PRN Reason: Pain (Mild 1-3)/fever Last Admin: 11/20/16 02:36 Dose: 650 mg Aspirin (Halfprin) 81 mg PO DAILY [facility] Last Admin: 11/21/16 08:15 Dose: 81 mg Carvedilol (Coreg) 12.5 mg PO BID [facility] Last Admin: 11/21/16 08:15 Dose: 12.5 mg Dextrose (Glutose 15) 15 gm PO ONETIME PRN PRN Reason: Hypoglycemia Dextrose/Water (Dextrose 50% In Water) 50 ml IV ONETIME PRN PRN Reason: Hypoglycemia Docusate Sodium (Colace) 100 mg PO BID PRN PRN Reason: Constipation Last Admin: 11/17/16 20:59 Dose: 100 mg Enoxaparin Sodium (Lovenox) 30 mg SUBCUT QPM [facility] Last Admin: 11/20/16 16:30 Dose: 30 mg Furosemide (Lasix) 40 mg PO BIDDIURETIC [facility] Last Admin: 11/21/16 08:15 Dose: 40 mg Ceftriaxone Sodium 1 gm/ (Sodium Chloride) 50 mls @ 100 mls/hr IV Q24H [facility] Last Admin: 11/20/16 16:29 Dose: 100 mls/hr Insulin Aspart (Novolog) 0 unit SUBCUT QIDACANDBED [facility] PRN Reason: Protocol Last Admin: 11/21/16 08:04 Dose: Not Given Insulin Detemir (Levemir) 18 unit SUBCUT BID [facility] Last Admin: 11/21/16 08:16 Dose: 18 units Losartan Potassium (Cozaar) 50 mg PO BID [facility] Last Admin: 11/21/16 08:15 Dose: 50 mg Magnesium Hydroxide (Milk Of Magnesia) 30 ml PO Q12H PRN PRN Reason: Constipation Last Admin: 11/20/16 20:54 Dose: 30 ml Ondansetron HCl (Zofran) 4 mg IV Q4H PRN PRN Reason: Nausea/Vomiting Last Admin: 11/18/16 12:02 Dose: 4 mg Oxycodone HCl (Oxycodone) 5 mg PO Q4H PRN PRN Reason: Pain (moderate 4-6) Polyethylene Glycol (Miralax) 17 gm PO DAILY PRN PRN Reason: Constipation Simvastatin (Zocor) 20 mg PO BEDTIME [facility] Last Admin: 11/20/16 20:53 Dose: 20 mg Sodium Chloride (Saline Flush) 10 ml FLUSH ASDIRECTED PRN PRN Reason: Keep Vein Open Terazosin HCl (Hytrin) 10 mg PO DAILY [facility] Last Admin: 11/21/16 08:16 Dose: 10 mg Discontinued Medications Enoxaparin Sodium (Lovenox) 30 mg SUBCUT DAILY [facility] Last Admin: 11/17/16 20:58 Dose: 30 mg Furosemide (Lasix) 40 mg PO BID [facility] Last Admin: 11/18/16 09:53 Dose: 40 mg Sodium Chloride (Normal Saline) 1,000 mls @ 999 mls/hr IV ASDIRECTED [facility] Last Admin: 11/17/16 17:45 Dose: 999 mls/hr Ceftriaxone Sodium 1 gm/ (Sodium Chloride) 50 mls @ 100 mls/hr IV ONETIME ONE Stop: 11/17/16 18:10 Last Admin: 11/17/16 17:54 Dose: 100 mls/hr Sodium Chloride (Normal Saline) 1,000 mls @ 500 mls/hr IV ASDIRECTED [facility] Last Admin: 11/17/16 18:42 Dose: 500 mls/hr Lactated Ringer's (Ringers, Lactated) 500 mls @ 500 mls/hr IV .BOLUS [facility] Stop: 11/17/16 23:37 Last Admin: 11/17/16 20:47 Dose: 500 mls/hr Lactated Ringer's (Ringers, Lactated) 1,000 mls @ 125 mls/hr IV ASDIRECTED [facility] Last Admin: 11/18/16 05:21 Dose: 125 mls/hr Lactated Ringer's (Ringers, Lactated) 1,000 mls @ 75 mls/hr IV ASDIRECTED [facility] Last Admin: 11/19/16 04:28 Dose: 75 mls/hr Magnesium Sulfate 2 gm/ Premix 50 mls @ 25 mls/hr IV ONETIME ONE Stop: 11/19/16 10:59 Last Admin: 11/19/16 09:12 Dose: 25 mls/hr Ibuprofen (Motrin) 800 mg PO ONETIME ONE Stop: 11/17/16 17:34 Last Admin: 11/17/16 21:44 Dose: Not Given Ibuprofen (Motrin 100 Mg/5 Ml Susp) 600 mg PO ONETIME ONE Stop: 11/17/16 17:38 Last Admin: 11/17/16 17:45 Dose: 600 mg Influenza Virus Vaccine (Fluzone High-Dose ) 180 mcg IM .ONCE ONE Stop: 11/18/16 14:01 Last Admin: 11/18/16 15:15 Dose: 180 mcg Insulin Detemir (Levemir) 18 unit SUBCUT BID [facility] Last Admin: 11/17/16 21:40 Dose: 18 units *Q Meaningful Use (DIS) - VTE *Q VTE Criteria *Q: - Stroke *Q Stroke Criteria *Q: - AMI *Q AMI Criteria *Q:
== END 2016-11-21 11:10 | disposition home or self-care (01) | DRG 872 ==
LOC: JP.ED 17:18 → JP.ICU 18:59
PROVIDERS: ADMIT Hospitalist; ATTEND Hospitalist
DX: A41.51 Sepsis due to Escherichia coli [E. coli] (principal); N39.0 Urinary tract infection, site not specified; N17.9 Acute kidney failure, unspecified; R65.20 Severe sepsis without septic shock; B96.20 Unspecified Escherichia coli [E. coli] as the cause of diseases classified elsewhere; R31.0 Gross hematuria; I12.9 Hypertensive chronic kidney disease with stage 1 through stage 4 chronic kidney disease, or unspecified chronic kidney disease; E11.22 Type 2 diabetes mellitus with diabetic chronic kidney disease; N18.3 Chronic kidney disease, stage 3 (moderate); Z79.4 Long term (current) use of insulin; Z23 Encounter for immunization; R09.02 Hypoxemia; Z99.81 Dependence on supplemental oxygen; E78.00 Pure hypercholesterolemia, unspecified; H54.7 Unspecified visual loss; H91.90 Unspecified hearing loss, unspecified ear; Z85.820 Personal history of malignant melanoma of skin; N40.0 Benign prostatic hyperplasia without lower urinary tract symptoms; Z91.041 Radiographic dye allergy status; Z79.82 Long term (current) use of aspirin
CPT/HCPCS: 36415; 71010 ×2; 80053; 82962; 83605; 85025; 86140; 87040 ×2; 87077; 87088; 87186; 96361; 96365; 99285; A9270; J0696; J7040 ×2; J7050; 80048; 81001; 83735; 87086; 90662; 97162-GP; G0008; J1650; J2405; J3475; J7120

== ENCOUNTER 2018-07-07 14:05 | Emergency (ER) | payer MEDICARE, BC ==
--- NOTE | 2018-07-07 15:04 | EDM.PDOC ---
ED HPI GENERAL MEDICAL PROBLEM - General Chief Complaint: Cardiovascular Problem Stated Complaint: from rehab Time Seen by Provider: 07/07/18 14:59 Source of Information: Reports: Patient History Limitations: Reports: No Limitations - History of Present Illness INITIAL COMMENTS - FREE TEXT/NARRATIVE: pt was in pulmonary rehab and it was felt that his pulse was irregular possibly in atrial fib. Pt is not having chest pain. He is having alot of sinus type congestion and chest congestion. Onset: Gradual, Other (last 2-3 days. ) Duration: Hour(s): Location: Reports: Chest Associated Symptoms: Reports: Shortness of Breath, Other (pt is on 2-3 liters of o2. ) Headache Pain Score (Numeric/FACES): 5 - Related Data Allergies Allergy/AdvReac Type Severity Reaction Status Date / Time Iodinated Contrast- Oral and Allergy Renal Verified 07/07/18 14:15 IV Dye Insufficiency [Iodinated Contrast Media - IV Dye] Home Meds: Home Meds Carvedilol [Coreg] 6.25 mg PO BID 03/14/14 [History] Cholecalciferol (Vitamin D3) [Vitamin D3] 2,000 unit PO DAILY 03/14/14 [History] Insulin Glargine,Hum.Rec.Anlog [Lantus Solostar] 20 units SQ BID 03/14/14 [ History] metroNIDAZOLE [metroNIDAZOLE 0.75% Gel] 45 gm .XX DAILY 03/14/14 [History] Aspirin [Ecotrin] 81 mg PO DAILY 11/14/16 [History] Losartan [Cozaar] 50 mg PO BID 11/14/16 [History] Multivitamin [Multi-Vitamin Daily] 1 tab PO DAILY 11/14/16 [History] Terazosin [Hytrin] 10 mg PO DAILY 11/14/16 [History] Bumetanide [Bumex] 2 mg PO BID #60 tab 11/26/17 [Rx] D-Mannose 25 gm MC ASDIRECTED 11/29/17 [History] Levothyroxine [Synthroid] 50 mcg PO ACBREAKFAST 07/07/18 [History] diphenhydrAMINE [Benadryl] 25 mg PO BEDTIME 07/07/18 [History] hydrALAZINE [Apresoline] 12.5 mg PO TID 07/07/18 [History] Past Medical History HEENT History: Reports: Hard of Hearing, Impaired Vision, Sinusitis Cardiovascular History: Reports: Afib, Heart Failure, High Cholesterol, Hypertension, Other (See Below) Other Cardiovascular History: localized edema Respiratory History: Reports: COPD, Other (See Below) Other Respiratory History: pt uses 3 liters O2 continuous Gastrointestinal History: Reports: None Genitourinary History: Reports: BPH, Chronic Renal Insuffiency, Other (See Below ) Other Genitourinary History: lesion of bladder Endocrine/Metabolic History: Reports: Diabetes, Type II, Hypothyroidism Oncologic (Cancer) History: Reports: Basal Cell Carcinoma, Malignant Melanoma Dermatologic History: Reports: Melanoma, Other (See Below) - Infectious Disease History Infectious Disease History: Reports: Chicken Pox, Measles, Mumps - Past Surgical History Head Surgeries/Procedures: Reports: None HEENT Surgical History: Reports: Tonsillectomy, Other (See Below) Other HEENT Surgeries/Procedures: mandubular mass surgery Cardiovascular Surgical History: Reports: None Respiratory Surgical History: Reports: None GI Surgical History: Reports: Colonoscopy Endocrine Surgical History: Reports: None Oncologic Surgical History: Reports: None Dermatological Surgical History: Reports: Skin Biopsy Social & Family History - Family History Family Medical History: Noncontributory - Tobacco Use Smoking Status *Q: Former Smoker Used Tobacco, but Quit: Yes Month/Year Tobacco Last Used: 25 years Second Hand Smoke Exposure: Yes - Caffeine Use Caffeine Use: Reports: Coffee Caffeine Use Comment: 1-2 cups coffee a day - Recreational Drug Use Recreational Drug Use: No ED ROS GENERAL - Review of Systems Review Of Systems: See Below Constitutional: Reports: No Symptoms HEENT: Reports: No Symptoms Respiratory: Reports: Shortness of Breath Cardiovascular: Reports: Palpitations, Other ( irregular heart beat. ) Endocrine: Reports: No Symptoms GI/Abdominal: Reports: No Symptoms : Reports: No Symptoms Musculoskeletal: Reports: No Symptoms Skin: Reports: No Symptoms Neurological: Reports: No Symptoms ED EXAM, GENERAL - Physical Exam Exam: See Below Free Text/Narrative:: pt had possible episode of atrial fib seen in Pulmonary rehab. He is feeling ok except his chest has been more congested and he has had alot of congestion in his sinuses. He has not had chest pain. He had a ekg which is regular except some ectopics. He does not have good qualifications of his p waves. He has had atrial fib in the past. His rate at this point is well controlled. Exam Limited By: No Limitations General Appearance: Alert, Mild Distress, Other (pt does sound quite congested in his chest. ) Ears: Normal TMs Nose: Normal Inspection Throat/Mouth: Normal Inspection Head: Atraumatic Neck: Normal Inspection Respiratory/Chest: No Respiratory Distress Cardiovascular: Regular Rate, Rhythm, Other (pt has a regular rhythm with a occasional ectopic. He has a controlled vent response. ) GI/Abdominal: Soft, Non-Tender (Male) Exam: Deferred Rectal (Males) Exam: Deferred Back Exam: Normal Inspection Extremities: Normal Inspection Neurological: Alert, Oriented, Normal Cognition Course - Vital Signs Last Recorded V/S: Last Vital Signs Temp 36.2 C 07/07/18 14:10 Pulse 73 07/07/18 16:09 Resp 21 H 07/07/18 16:09 BP 185/99 H 07/07/18 16:09 Pulse Ox 98 07/07/18 16:09 - Orders/Labs/Meds Labs: Laboratory Tests 07/07/18 07/07/18 07/07/18 Range/Units 14:40 14:40 14:56 WBC 10.8 (4.5-11.0) K/uL RBC 3.87 L (4.30-5.90) M/uL Hgb 11.4 L (12.0-15.0) g/dL Hct 37.0 L (40.0-54.0) % MCV 96 (80-98) fL MCH 30 (27-31) pg MCHC 31 L (32-36) % Plt Count 293 (150-400) K/uL Neut % (Auto) 80 H (36-66) % Lymph % (Auto) 8 L (24-44) % Mason % (Auto) 11 H (2-6) % Eos % (Auto) 2 (2-4) % Baso % (Auto) 0 (0-1) % Sodium 141 (140-148) mmol/L Potassium 5.0 (3.6-5.2) mmol/L Chloride 106 (100-108) mmol/L Carbon Dioxide 30 (21-32) mmol/L Anion Gap 5.5 (5.0-14.0) mmol/L BUN 52 H (7-18) mg/dL Creatinine 2.8 H (0.8-1.3) mg/dL Est Cr Clr Drug Dosing 21.94 mL/min Estimated GFR (MDRD) 22 L (>60) Glucose 195 H (74-106) mg/dL Calcium 8.6 (8.5-10.1) mg/dL Total Bilirubin 0.2 (0.2-1.0) mg/dL AST 14 L (15-37) U/L ALT 17 (12-78) U/L Alkaline Phosphatase 67 (46-116) U/L C-Reactive Protein 3.53 H (0.0-0.3) mg/dL Total Protein 6.4 (6.4-8.2) g/dL Albumin 2.2 L (3.4-5.0) g/dL Globulin 4.2 H (2.3-3.5) g/dL Albumin/Globulin Ratio 0.5 L (1.2-2.2) Meds: Medications Discontinued Medications Generic Name Dose Route Start Last Admin Trade Name Freq PRN Reason Stop Dose Admin Ceftriaxone Sodium 1 gm/ 0 gm 07/07/18 16:02 07/07/18 16:19 Lidocaine HCl 2.1 ml IM 07/07/18 16:03 1 inj ONETIME ONE Administration - Re-Assessments/Exams Free Text/Narrative Re-Assessment/Exam: 07/07/18 15:59 pt had a ekg with no acute changes. His ps are not well seen. His rate is good. The basic rhythm is regular. His chest xray reveals a infiltrate at the rt lung base. His kidney funtion is not good but is stable at this point. Departure - Departure Time of Disposition: 16:01 Disposition: Home, Self-Care 01 Condition: Fair Clinical Impression: Right lower lobe pneumonia, COPD (chronic obstructive pulmonary disease), Renal insufficiency Instructions: Community-Acquired Pneumonia, Adult, [id number] Referrals: PCP,None [Primary Care Provider] - Forms: ED Department Discharge Care Plan Goals: cont same meds, follow up appt with Dr Kendall in 1 week. zithromax 25o 2 tabs now and 1 tab daily for 7 days, follow up with Dr Kendall will be for the rt lower lobe pneumonia and his heart rhythm. while on the antibiotics pt shoud use yogurt or a probiotic.
--- NOTE | 2018-07-07 15:45 | CRLCR ---
INDICATION: Shortness of breath, cardiac arrhythmia. TECHNIQUE: Two-view. FINDINGS: Area of linear increased opacification is identified posterior lung base on lateral film. This is likely in the right lung base. This is most compatible some atelectasis or mild infiltrate. The mid and upper lungs are clear. The heart size is within normal limits. IMPRESSION: Some linear density posterior lung base lateral imaging, likely right lung base consistent with some atelectasis or infiltrate. Dictated by Zhou Regalado MD @ 07/07/2018 3:43:06 PM Dictated by: Zhou Regalado MD @ 07/07/2018 15:43:14 (Electronically Signed)
--- NOTE | 2018-07-07 15:52 | CRLCR ---
HISTORY: Congestion. COMPARISON: None available. FINDINGS: The paranasal sinuses are examined with a single Galeas view. There is clouding of the inferior half of the left maxillary sinus along with several rounded densities, consistent with a combination of chronic sinusitis and multiple mucous retention cysts. The rest of the paranasal sinuses are clear with no sign of mucosal thickening. The osseous structures of the orbits and face are normal in appearance. The calvarium is normal in appearance as well. IMPRESSION: Clotting of the inferior left maxillary sinus consistent with mild chronic sinusitis. Multiple mucous retention cysts in the left maxillary sinus. Dictated by Melvin Moctezuma MD @ Jul 07 2018 3:48PM Signed by Dr. Melvin Moctezuma @ Jul 07 2018 3:50PM
[2018-07-07] MEDS ORDERED: cefTRIAXone 1 GM, Lidocaine 1% 2.1 ML IM ONE ×2 (16:02)
[2018-07-07 16:10] VITALS: BP 185/99
== END 2018-07-07 16:27 | disposition home or self-care (01) ==
LOC: JP.ED 14:05
DX: J18.1 Lobar pneumonia, unspecified organism (principal); J44.9 Chronic obstructive pulmonary disease, unspecified; I13.0 Hypertensive heart and chronic kidney disease with heart failure and stage 1 through stage 4 chronic kidney disease, or unspecified chronic kidney disease; I50.9 Heart failure, unspecified; N18.9 Chronic kidney disease, unspecified; I48.91 Unspecified atrial fibrillation; E03.9 Hypothyroidism, unspecified; E11.22 Type 2 diabetes mellitus with diabetic chronic kidney disease; Z91.041 Radiographic dye allergy status; Z79.899 Other long term (current) drug therapy; Z87.891 Personal history of nicotine dependence; Z79.4 Long term (current) use of insulin
CPT/HCPCS: 36415; 70210; 71046; 80053; 85025; 86140; 93005; 96372; 99285; J0696; J2001

== ENCOUNTER 2018-07-28 15:15 | Inpatient (IN) | payer MEDICARE, BC ==
[2018-07-28] MEDS ORDERED: Albuterol 0.083% 2.5 MG/3 ML Neb Soln NEB PRN (15:39)
[2018-07-28] MEDS ORDERED: Sodium Chloride 0.9% 10 ML Syringe FLUSH PRN (15:39)
[2018-07-28] MEDS ORDERED: Acetaminophen 325 MG Tab PO PRN (15:39)
[2018-07-28] MEDS ORDERED: Ondansetron 4 MG/2 ML SDV IV PRN (15:39)
[2018-07-28] MEDS: cefTRIAXone 1 GM in Sodium Chloride 0.9% 50 ML IV SCH (16:27)
[2018-07-28] MEDS: methylPREDNISolone Sodium Succinate 40 MG/1 ML SDV IVPUSH SCH ×2 (16:30→22:19)
[2018-07-28] MEDS: Enoxaparin 30 MG/0.3 ML Syringe SUBCUT SCH (16:40)
[2018-07-28] MEDS: Lactobacillus Rhamnosus GG (Probiotic) Cap PO SCH ×2 (16:41→20:57)
[2018-07-28] MEDS ORDERED: 50% Dextrose in Water 50 ML Syringe IV PRN (16:53)
[2018-07-28] MEDS ORDERED: Glucose Gel 15 GM in 37.5 GM Tube PO PRN (16:53)
[2018-07-28] MEDS ORDERED: Azithromycin 500 MG in Sodium Chloride 0.9% 250 ML IV SCH (17:00)
--- NOTE | 2018-07-28 17:02 | PCM.HP ---
H&P History of Present Illness - General Date of Service: 07/28/18 Admit Problem/Dx: Admission Diagnosis/Problem Admission Diagnosis/Problem Pneumonia Source of Information: Patient, Family, Provider History Limitations: Reports: No Limitations - History of Present Illness Initial Comments - Free Text/Narative: Josep is an 83-year-old gentleman who is admitted as a direct admission from the clinic with dyspnea, weakness, and fever, secondary to COPD exacerbation with underlying bilateral pneumonia. He has a known history of oxygen dependent COPD, was doing well until yesterday when he developed increased weakness and shortness of breath associated with cough and fever. He was unable to sleep much of the night because of shortness of breath. He was brought into the walk- in clinic earlier today, white blood cell count is within normal range. Chest x- ray showed evidence of bilateral patchy infiltrates. Troponin level was obtained and found to be elevated at 0.2. - Related Data Allergies/Adverse Reactions: Allergies Allergy/AdvReac Type Severity Reaction Status Date / Time Iodinated Contrast- Oral and AdvReac Renal Verified 07/28/18 15:23 IV Dye Insufficiency [Iodinated Contrast Media - IV Dye] Home Medications: Home Meds Carvedilol [Coreg] 6.25 mg PO BID 03/14/14 [History] Cholecalciferol (Vitamin D3) [Vitamin D3] 2,000 unit PO DAILY 03/14/14 [History] metroNIDAZOLE [metroNIDAZOLE 0.75% Gel] 45 gm .XX DAILY 03/14/14 [History] Aspirin [Ecotrin EC] 81 mg PO DAILY 11/14/16 [History] Losartan [Cozaar] 50 mg PO BID 11/14/16 [History] Multivitamin [Multi-Vitamin Daily] 1 tab PO DAILY 11/14/16 [History] Terazosin [Hytrin] 10 mg PO DAILY 11/14/16 [History] Bumetanide [Bumex] 2 mg PO BID #60 tab 11/26/17 [Rx] D-Mannose 25 gm MC DAILY 11/29/17 [History] Levothyroxine [Synthroid] 50 mcg PO ACBREAKFAST 07/07/18 [History] hydrALAZINE [Apresoline] 12.5 mg PO TID 07/07/18 [History] Insulin Glargine,Hum.Rec.Anlog [Basaglar Kwikpen U-100] 20 unit SQ BID 07/28/18 [History] Past Medical History HEENT History: Reports: Hard of Hearing, Impaired Vision, Sinusitis Cardiovascular History: Reports: Afib, Heart Failure, High Cholesterol, Hypertension, Other (See Below) Other Cardiovascular History: localized edema Respiratory History: Reports: COPD, Other (See Below) Other Respiratory History: pt uses 3 liters O2 continuous Gastrointestinal History: Reports: None Genitourinary History: Reports: BPH, Chronic Renal Insuffiency, Other (See Below ) Other Genitourinary History: lesion of bladder Endocrine/Metabolic History: Reports: Diabetes, Type II, Hypothyroidism Oncologic (Cancer) History: Reports: Basal Cell Carcinoma, Malignant Melanoma Dermatologic History: Reports: Melanoma, Other (See Below) - Infectious Disease History Infectious Disease History: Reports: Chicken Pox, Measles, Mumps - Past Surgical History Head Surgeries/Procedures: Reports: None HEENT Surgical History: Reports: Tonsillectomy, Other (See Below) Other HEENT Surgeries/Procedures: mandubular mass surgery Cardiovascular Surgical History: Reports: None Respiratory Surgical History: Reports: None GI Surgical History: Reports: Colonoscopy Endocrine Surgical History: Reports: None Oncologic Surgical History: Reports: None Dermatological Surgical History: Reports: Skin Biopsy Social & Family History - Family History Family Medical History: Noncontributory - Tobacco Use Smoking Status *Q: Former Smoker Used Tobacco, but Quit: Yes Month/Year Tobacco Last Used: many years ago - Caffeine Use Caffeine Use: Reports: Coffee, Soda Caffeine Use Comment: 1-2 cups coffee a day - Recreational Drug Use Recreational Drug Use: No H&P Review of Systems - Review of Systems: Review Of Systems: See Below General: Reports: Fever, Chills, Weakness, Fatigue, Diaphoresis, Decreased Appetite HEENT: Reports: No Symptoms Pulmonary: Reports: Shortness of Breath, Wheezing, Cough. Denies: Pleuritic Chest Pain, Sputum, Hemoptysis Cardiovascular: Reports: Dyspnea on Exertion, Edema. Denies: Chest Pain, Palpitations, Orthopnea, PND, Lightheadedness Gastrointestinal: Reports: No Symptoms Genitourinary: Reports: No Symptoms Musculoskeletal: Reports: No Symptoms Skin: Reports: No Symptoms Psychiatric: Reports: No Symptoms Neurological: Reports: No Symptoms Hematologic/Lymphatic: Reports: No Symptoms Immunologic: Reports: No Symptoms Exam - Exam Exam: See Below - Vital Signs Vital Signs: Last Vital Signs Temp 101.2 F H 07/28/18 15:39 Pulse 99 07/28/18 15:39 Resp 29 H 07/28/18 15:39 BP 171/82 H 07/28/18 15:39 Pulse Ox 93 L 07/28/18 15:40 Weight: 265 lb 10.512 oz - Exam Quality Assessment: Supplemental Oxygen, DVT Prophylaxis General: Oriented, Cooperative, Moderate Distress, Lethargic HEENT: Conjunctiva Clear, Normal Nasal Septum, Posterior Pharynx Clear, Pupils Equal. No: Hearing Intact, Mucosa Moist & Ringo Neck: Supple, Trachea Midline, +2 Carotid Pulse wo Bruit Lungs: Decreased Breath Sounds, Rales, Rhonchi. No: Rub, Wheezing Cardiovascular: Regular Rate, Normal S1, Normal S2, Irregular Rhythm. No: Systolic Murmur, Diastolic Murmur GI/Abdominal Exam: Soft, Non-Tender, No Organomegaly, No Distention Extremities: Non-Tender, Pedal Edema Skin: Warm, Dry, Intact Neurological: Cranial Nerves Intact, Strength Equal Bilateral, Normal Speech, Normal Tone, Sensation Intact. No: Focal Deficit Neuro Extensive - Mental Status: Oriented x3, Normal Mood/Affect, Normal Cognition, Memory Intact *Q Meaningful Use (ADM) - VTE Risk Assess *Q Each Risk Factor Represents 1 Point: Swollen Legs, Current, Obesity ( BMI > 25 kg/m2), Serious lung disease including pneumonia, Abnormal Pulmonary Function ( COPD) Total Score 1 Point Risk Factors: 4 Each Risk Factor Represents 2 Points: None Total Score 2 Point Risk Factors: 0 Each Risk Factor Represents 3 Points: Age 75 Years or Greater Total Score 3 Point Risk Factors: 3 Each Risk Factor Represents 5 Points: None Total Score 5 Point Risk Factors: 0 Venous Thromboembolism Risk Factor Score *Q: 7 Problem List Initiated/Reviewed/Updated: Yes Orders Last 24hrs: Active Orders 24 hr Category Date Time Status Patient Status [ADT] Routine ADT 07/28/18 15:39 Active Ambulate [RC] QID Care 07/28/18 15:39 Active Blood Glucose Check, Bedside [RC] QIDACANDBED Care 07/28/18 16:53 Active Cardiac Monitoring [RC] .As Directed Care 07/28/18 15:40 Active Communication Order [RC] STAT Care 07/28/18 16:53 Active Diabetes Education [RC] Click to Edit Care 07/28/18 16:53 Active Height and Weight [RC] DAILY Care 07/28/18 15:39 Active Intake and Output [RC] QSHIFT Care 07/28/18 15:39 Active Notify Provider Vital Signs [RC] ASDIRECTED Care 07/28/18 15:39 Active Notify Provider [RC] PRN Care 07/28/18 16:53 Active Oxygen Therapy [RC] PRN Care 07/28/18 15:39 Active Pulse Oximetry [RC] CONTINUOUS Care 07/28/18 15:40 Active RT Aerosol Therapy [RC] ASDIRECTED Care 07/28/18 15:41 Active Up With Assistance [RC] ASDIRECTED Care 07/28/18 15:39 Active Up to Chair [RC] QID Care 07/28/18 15:39 Active VTE/DVT Education [RC] Per Unit Routine Care 07/28/18 15:39 Active Vital Signs [RC] Q4H Care 07/28/18 15:39 Active 2 Gram Sodium Diet [DIET] Diet 07/28/18 Lunch Active CBC WITH AUTO DIFF [HEME] AM Lab 07/29/18 05:11 Ordered COMPREHENSIVE METABOLIC PN,CMP [CHEM] AM Lab 07/29/18 05:11 Ordered CULTURE BLOOD [BC] Stat Lab 07/28/18 15:45 Received CULTURE BLOOD [BC] Stat Lab 07/28/18 16:00 Received CULTURE RESPIRATORY + SMEAR [RM] Stat Lab 07/28/18 15:45 Ordered GLUCOSE POC LAB TO COLLECT [POC] QIDACANDBED Lab 07/28/18 21:00 Ordered GLUCOSE POC LAB TO COLLECT [POC] QIDACANDBED Lab 07/29/18 07:30 Ordered GLUCOSE POC LAB TO COLLECT [POC] QIDACANDBED Lab 07/29/18 11:30 Ordered GLUCOSE POC LAB TO COLLECT [POC] QIDACANDBED Lab 07/29/18 16:30 Ordered GLUCOSE POC LAB TO COLLECT [POC] QIDACANDBED Lab 07/29/18 21:00 Ordered GLUCOSE POC LAB TO COLLECT [POC] QIDACANDBED Lab 07/30/18 07:30 Ordered GLUCOSE POC LAB TO COLLECT [POC] QIDACANDBED Lab 07/30/18 11:30 Ordered GLUCOSE POC LAB TO COLLECT [POC] QIDACANDBED Lab 07/30/18 16:30 Ordered GLUCOSE POC LAB TO COLLECT [POC] QIDACANDBED Lab 07/30/18 21:00 Ordered GLUCOSE POC LAB TO COLLECT [POC] QIDACANDBED Lab 07/31/18 07:30 Ordered GLUCOSE POC LAB TO COLLECT [POC] QIDACANDBED Lab 07/31/18 11:30 Ordered GLUCOSE POC LAB TO COLLECT [POC] QIDACANDBED Lab 07/31/18 16:30 Ordered GLUCOSE POC LAB TO COLLECT [POC] QIDACANDBED Lab 07/31/18 21:00 Ordered GLUCOSE POC LAB TO COLLECT [POC] QIDACANDBED Lab 08/01/18 07:30 Ordered GLUCOSE POC LAB TO COLLECT [POC] QIDACANDBED Lab 08/01/18 11:30 Ordered GLUCOSE POC LAB TO COLLECT [POC] QIDACANDBED Lab 08/01/18 16:30 Ordered GLUCOSE POC LAB TO COLLECT [POC] QIDACANDBED Lab 08/01/18 21:00 Ordered GLUCOSE POC LAB TO COLLECT [POC] QIDACANDBED Lab 08/02/18 07:30 Ordered GLUCOSE POC LAB TO COLLECT [POC] QIDACANDBED Lab 08/02/18 11:30 Ordered GLUCOSE POC LAB TO COLLECT [POC] QIDACANDBED Lab 08/02/18 16:30 Ordered MAGNESIUM [CHEM] AM Lab 07/29/18 05:11 Ordered TROPONIN I [CHEM] AM Lab 07/29/18 05:11 Ordered TROPONIN I [CHEM] Stat Lab 07/28/18 17:00 Ordered TROPONIN I [CHEM] Stat Lab 07/28/18 23:00 Ordered Acetaminophen [Tylenol] Med 07/28/18 15:39 Active 650 mg PO Q4H PRN Albuterol [Proventil Neb Soln] Med 07/28/18 15:39 Active 2.5 mg NEB Q4H PRN Albuterol/Ipratropium [DuoNeb 3.0-0.5 MG/3 ML] Med 07/28/18 21:00 Active 3 ml NEB QIDRT Aspirin [Halfprin] Med 07/29/18 09:00 Ordered 81 mg PO DAILY Bumetanide [Bumex] Med 07/28/18 21:00 Ordered 2 mg PO BID Carvedilol [Coreg] Med 07/28/18 21:00 Ordered 6.25 mg PO BID Dextrose 50% in Water Med 07/28/18 16:53 Ordered 50 ml IV ONETIME PRN Dextrose [Glutose 15] Med 07/28/18 16:53 Ordered 15 gm PO ONETIME PRN Enoxaparin [Lovenox] Med 07/28/18 16:00 Active 30 mg SUBCUT Q24H Insulin Glarg,Human.Rec.Analog [LantUS Solostar] Med 07/28/18 21:00 Ordered 20 units SUBCUT BID Insulin Lispro [HumaLOG] Med 07/28/18 17:00 Ordered See Protocol SUBCUT QIDACANDBED Lactobacillus Rhamnosus GG [Culturelle] Med 07/28/18 16:00 Active 1 cap PO BID Levofloxacin/Dextrose 5%-Water [Levaquin in D5W 750 MG/ Med 07/28/18 17:00 Ordered 150 ML] 750 mg Premix Bag 1 bag IV Q24H Levothyroxine [Synthroid] Med 07/29/18 07:30 Ordered 50 mcg PO ACBREAKFAST Losartan [Cozaar] Med 07/28/18 21:00 Ordered 50 mg PO BID Ondansetron [Zofran] Med 07/28/18 15:39 Active 4 mg IV Q4H PRN Polyethylene Glycol 3350 [MiraLAX] Med 07/28/18 15:39 Active 17 gm PO DAILY PRN Sodium Chloride 0.9% [Normal Saline] 1,000 ml Med 07/28/18 17:00 Ordered IV ASDIRECTED Sodium Chloride 0.9% [Saline Flush] Med 07/28/18 15:39 Active 10 ml FLUSH ASDIRECTED PRN Terazosin [Hytrin] Med 07/29/18 09:00 Ordered 10 mg PO DAILY cefTRIAXone [Rocephin] 1 gm Med 07/28/18 16:30 Active Sodium Chloride 0.9% [Normal Saline] 50 ml IV Q24H hydrALAZINE [Apresoline] Med 07/28/18 21:00 Ordered 12.5 mg PO TID methylPREDNISolone Sod Succ [Solu-MEDROL] Med 07/28/18 16:00 Active 40 mg IVPUSH Q6H Blood Culture x2 Reflex Set [OM.PC] Urgent Oth 07/28/18 15:45 Ordered Saline Lock Insert [OM.PC] Routine Oth 07/28/18 15:39 Ordered Resuscitation Status Routine Resus Stat 07/28/18 15:39 Ordered Medication Orders Acetaminophen (Tylenol) 650 mg PO Q4H PRN PRN Reason: Pain (Mild 1-3)/fever Albuterol (Proventil Neb Soln) 2.5 mg NEB Q4H PRN PRN Reason: Shortness Of Breath/wheezing Albuterol/Ipratropium (Duoneb 3.0-0.5 Mg/3 Ml) 3 ml NEB QIDRT [facility] Aspirin (Halfprin) 81 mg PO DAILY [facility] Carvedilol (Coreg) 6.25 mg PO BID [facility] Dextrose (Glutose 15) 15 gm PO ONETIME PRN PRN Reason: Hypoglycemia Dextrose/Water (Dextrose 50% In Water) 50 ml IV ONETIME PRN PRN Reason: Hypoglycemia Enoxaparin Sodium (Lovenox) 30 mg SUBCUT Q24H [facility] Last Admin: 07/28/18 16:40 Dose: 30 mg Hydralazine HCl (Apresoline) 12.5 mg PO TID [facility] Ceftriaxone Sodium 1 gm/ (Sodium Chloride) 50 mls @ 100 mls/hr IV Q24H [facility] Last Admin: 07/28/18 16:27 Dose: 100 mls/hr Levofloxacin/Dextrose 750 mg/ (Premix) 150 mls @ 100 mls/hr IV Q24H [facility] Sodium Chloride (Normal Saline) 1,000 mls @ 125 mls/hr IV ASDIRECTED [facility] Insulin Glargine (Lantus Solostar) 20 units SUBCUT BID [facility] Insulin Human Lispro (Humalog) 0 unit SUBCUT QIDACANDBED [facility]; Protocol Lactobacillus Rhamnosus (Culturelle) 1 cap PO BID [facility] Last Admin: 07/28/18 16:41 Dose: 1 cap Levothyroxine Sodium (Synthroid) 50 mcg PO ACBREAKFAST [facility] Losartan Potassium (Cozaar) 50 mg PO BID [facility] Methylprednisolone Sodium Succinate (Solu-Medrol) 40 mg IVPUSH Q6H [facility] Last Admin: 07/28/18 16:30 Dose: 40 mg Non-Formulary Medication (Bumetanide [Bumex]) 2 mg PO BID [facility] Ondansetron HCl (Zofran) 4 mg IV Q4H PRN PRN Reason: Nausea/Vomiting Polyethylene Glycol (Miralax) 17 gm PO DAILY PRN PRN Reason: Constipation Sodium Chloride (Saline Flush) 10 ml FLUSH ASDIRECTED PRN PRN Reason: Keep Vein Open Terazosin HCl (Hytrin) 10 mg PO DAILY [facility] Assessment/Plan Comment:: ASSESSMENT AND PLAN BILATERAL PNEUMONIA-abrupt onset of symptoms yesterday with fever and cough as well as increased shortness of breath. Bilateral infiltrates identified on chest x-ray obtained at the clinic today. O evidence of significant sepsis identified thus far. -IV fluids for hydration -Blood and sputum cultures pending -IV Rocephin and levofloxacin pending culture results COPD EXACERBATION SECONDARY TO PNEUMONIA-increased shortness of breath noted over the last 24 hours -Nebulized albuterol and duo nebs -Solu-Medrol 40 mg IV every 6 hours -Supplemental oxygen as needed TYPE 2 DIABETES MELLITUS -Low-dose sliding scale NovoLog -4 times a day glucometers -And 10 units usual dose of long acting insulin CHRONIC KIDNEY DISEASE STAGE IV -Mostly monitor urine output and renal function during hospital stay ELEVATED TROPONIN-likely secondary to demand ischemia in the setting of respiratory compromise and pneumonia, as well as underlying chronic kidney disease -Serial troponin levels MAINTENANCE ISSUES -DVT prophylaxis; Lovenox 30 mg subcutaneous daily -GI prophylaxis; not indicated -Barrientos catheter; not indicated -Nutrition; 2 g sodium diet -Nicotine dependence; not required CODE STATUS-FULL CODE ADMISSION STATUS-patient will be admitted to inpatient status, expect at least a 2 night hospital stay for evaluation and management of problems as outlined above. At the time of this admission I do not reasonably expected evaluation and management of this problem will require more than a 96 hour hospital stay. DISPOSITION-anticipate discharge to home after the hospital stay. PRIMARY CARE PROVIDER-Dr. Kendall
[2018-07-28] MEDS: Insulin Lispro 100 Unit/ML 3 ML KwikPen SUBCUT SCH ×2 (17:07→21:09)
[2018-07-28] MEDS: Sodium Chloride 0.9% 1,000 ML IV SCH (17:15)
[2018-07-28] MEDS: Bumetanide 1 MG Tab PO SCH (17:37)
[2018-07-28] MEDS ORDERED: Levofloxacin/Dextrose 5%-Water 750 MG in Premix Bag 1 BAG IV SCH (18:00)
[2018-07-28] MEDS: Albuterol/Ipratropium 3.0-0.5 MG/3 ML Neb Soln NEB SCH (20:55)
[2018-07-28] MEDS: hydrALAZINE 25 MG Tab PO SCH (20:56)
[2018-07-28] MEDS: Carvedilol 6.25 MG Tab PO SCH (20:57)
[2018-07-28] MEDS: Losartan 50 MG Tab PO SCH (20:57)
[2018-07-28] MEDS ORDERED: Non-Formulary Medication 1 Each (Bumetanide [Bumex] 2 MG) PO SCH (21:00)
[2018-07-28] MEDS: Insulin Glargine,Human Rec. Analog 100 Units/ML 3 ML Pen SUBCUT SCH (21:07)
[2018-07-29] MEDS: Sodium Chloride 0.9% 1,000 ML IV SCH (02:32)
[2018-07-29] MEDS: methylPREDNISolone Sodium Succinate 40 MG/1 ML SDV IVPUSH SCH ×3 (04:04→16:28)
[2018-07-29] MEDS: Albuterol/Ipratropium 3.0-0.5 MG/3 ML Neb Soln NEB SCH ×4 (07:00→20:46)
[2018-07-29] MEDS: Levothyroxine 50 MCG Tab PO SCH (08:06)
[2018-07-29] MEDS: Aspirin 81 MG Tab.EC PO SCH (08:06)
[2018-07-29] MEDS: Lactobacillus Rhamnosus GG (Probiotic) Cap PO SCH ×2 (08:07→20:48)
[2018-07-29] MEDS: Carvedilol 6.25 MG Tab PO SCH ×2 (08:07→20:47)
[2018-07-29] MEDS: Terazosin 5 MG Cap PO SCH (08:07)
[2018-07-29] MEDS: Losartan 50 MG Tab PO SCH ×2 (08:07→20:47)
[2018-07-29] MEDS: hydrALAZINE 25 MG Tab PO SCH ×3 (08:07→20:46)
[2018-07-29] MEDS: Bumetanide 1 MG Tab PO SCH ×2 (08:08→13:47)
[2018-07-29] MEDS: Insulin Lispro 100 Unit/ML 3 ML KwikPen SUBCUT SCH ×4 (08:10→20:41)
[2018-07-29] MEDS: Insulin Glargine,Human Rec. Analog 100 Units/ML 3 ML Pen SUBCUT SCH ×2 (08:11→20:42)
--- NOTE | 2018-07-29 10:06 | PCM.PN ---
- General Info Date of Service: 07/29/18 Subjective Update: Mr. Prince has improved since admission, tachycardia has resolved and respiratory status improved. He is otherwise been hemodynamically stable and has not had significant temperature elevation since his fever just after admission. Renal function has improved modestly from admission. - Review of Systems General: Reports: Weakness. Denies: Fever, Chills Pulmonary: Reports: Shortness of Breath, Cough. Denies: Pleuritic Chest Pain, Sputum, Hemoptysis, Wheezing Cardiovascular: Reports: Dyspnea on Exertion. Denies: Chest Pain, Palpitations , Orthopnea, PND, Edema Gastrointestinal: Reports: No Symptoms - Patient Data Vitals - Most Recent: Last Vital Signs Temp 98.1 F 07/29/18 08:00 Pulse 97 07/29/18 08:07 Resp 22 H 07/29/18 08:00 BP 168/97 H 07/29/18 08:07 Pulse Ox 95 07/29/18 08:00 Weight - Most Recent: 265 lb 10.512 oz I&O - Last 24 Hours: Intake & Output 07/28/18 07/29/18 07/29/18 22:59 06:59 14:59 Intake Total 500 1359 Output Total 475 550 500 Balance 25 809 -500 Lab Results Last 24 Hours: Laboratory Results - last 24 hr 07/28/18 07/28/18 07/28/18 Range/Units 17:00 17:12 17:25 WBC (4.5-11.0) K/uL RBC (4.30-5.90) M/uL Hgb (12.0-15.0) g/dL Hct (40.0-54.0) % MCV (80-98) fL MCH (27-31) pg MCHC (32-36) % Plt Count (150-400) K/uL Neut % (Auto) (36-66) % Lymph % (Auto) (24-44) % [place] % (Auto) (2-6) % Eos % (Auto) (2-4) % Baso % (Auto) (0-1) % Puncture Site Rt brachial ABG pH 7.333 L (7.350-7.450) ABG pCO2 53.3 H (35.0-42.0) mmHg ABG pO2 64.6 L (75.0-100.0) mmHg ABG HCO3 27.5 H (22.0-26.0) mmol/L ABG Total CO2 25.7 (23.0-27.0) mmol/L ABG O2 Saturation 92.3 L (95.0-98.0) % ABG O2 Content 13.8 L (15.0-23.0) %vol ABG Base Excess 1.5 mm/L ABG Hemoglobin 10.8 L (13.5-18.0) g/dL ABG Oxyhemoglobin 90.7 % ABG Carboxyhemoglobin 0.9 (0.0-1.6) % ABG Methemoglobin 0.8 % Ramu Test Not performed O2 Delivery Device Nasal cannula Oxygen Flow Rate 4 L Sodium (140-148) mmol/L Potassium (3.6-5.2) mmol/L Chloride (100-108) mmol/L Carbon Dioxide (21-32) mmol/L Anion Gap (5.0-14.0) mmol/L BUN (7-18) mg/dL Creatinine (0.8-1.3) mg/dL Est Cr Clr Drug Dosing mL/min Estimated GFR (MDRD) (>60) Glucose (74-106) mg/dL Lactic Acid 1.1 (0.4-2.0) mmol/L Calcium (8.5-10.1) mg/dL Magnesium (1.8-2.4) mg/dL Total Bilirubin (0.2-1.0) mg/dL AST (15-37) U/L ALT (12-78) U/L Alkaline Phosphatase (46-116) U/L Troponin I 0.376 H* (0.000-0.056) ng/mL Total Protein (6.4-8.2) g/dL Albumin (3.4-5.0) g/dL Globulin (2.3-3.5) g/dL Albumin/Globulin Ratio (1.2-2.2) 07/28/18 07/29/18 07/29/18 Range/Units 23:00 05:49 05:49 WBC 8.6 (4.5-11.0) K/uL RBC 3.66 L (4.30-5.90) M/uL Hgb 10.7 L (12.0-15.0) g/dL Hct 35.7 L (40.0-54.0) % MCV 98 (80-98) fL MCH 29 (27-31) pg MCHC 30 L (32-36) % Plt Count 168 (150-400) K/uL Neut % (Auto) 94 H (36-66) % Lymph % (Auto) 4 L (24-44) % [place] % (Auto) 3 (2-6) % Eos % (Auto) 0 L (2-4) % Baso % (Auto) 0 (0-1) % Puncture Site ABG pH (7.350-7.450) ABG pCO2 (35.0-42.0) mmHg ABG pO2 (75.0-100.0) mmHg ABG HCO3 (22.0-26.0) mmol/L ABG Total CO2 (23.0-27.0) mmol/L ABG O2 Saturation (95.0-98.0) % ABG O2 Content (15.0-23.0) %vol ABG Base Excess mm/L ABG Hemoglobin (13.5-18.0) g/dL ABG Oxyhemoglobin % ABG Carboxyhemoglobin (0.0-1.6) % ABG Methemoglobin % Ramu Test O2 Delivery Device Oxygen Flow Rate L Sodium 143 (140-148) mmol/L Potassium 4.6 (3.6-5.2) mmol/L Chloride 108 (100-108) mmol/L Carbon Dioxide 29 (21-32) mmol/L Anion Gap 6.1 (5.0-14.0) mmol/L BUN 53 H (7-18) mg/dL Creatinine 2.8 H (0.8-1.3) mg/dL Est Cr Clr Drug Dosing 22.59 mL/min Estimated GFR (MDRD) 22 L (>60) Glucose 172 H (74-106) mg/dL Lactic Acid (0.4-2.0) mmol/L Calcium 8.6 (8.5-10.1) mg/dL Magnesium 1.9 (1.8-2.4) mg/dL Total Bilirubin 0.2 (0.2-1.0) mg/dL AST 24 (15-37) U/L ALT 19 (12-78) U/L Alkaline Phosphatase 40 L (46-116) U/L Troponin I 0.484 H* 0.434 H* (0.000-0.056) ng/mL Total Protein 6.1 L (6.4-8.2) g/dL Albumin 2.2 L (3.4-5.0) g/dL Globulin 3.9 H (2.3-3.5) g/dL Albumin/Globulin Ratio 0.6 L (1.2-2.2) Med Orders - Current: Current Medications Acetaminophen (Tylenol) 650 mg PO Q4H PRN PRN Reason: Pain (Mild 1-3)/fever Last Admin: 07/28/18 17:44 Dose: 650 mg Albuterol (Proventil Neb Soln) 2.5 mg NEB Q4H PRN PRN Reason: Shortness Of Breath/wheezing Albuterol/Ipratropium (Duoneb 3.0-0.5 Mg/3 Ml) 3 ml NEB QIDRT [facility] Last Admin: 07/29/18 07:00 Dose: 3 ml Aspirin (Halfprin) 81 mg PO DAILY [facility] Last Admin: 07/29/18 08:06 Dose: 81 mg Bumetanide (Bumex) 2 mg PO BIDDIURETIC [facility] Last Admin: 07/29/18 08:08 Dose: 2 mg Carvedilol (Coreg) 6.25 mg PO BID [facility] Last Admin: 07/29/18 08:07 Dose: 6.25 mg Dextrose (Glutose 15) 15 gm PO ASDIRECTED PRN PRN Reason: Hypoglycemia Dextrose/Water (Dextrose 50% In Water) 50 ml IV ASDIRECTED PRN PRN Reason: Hypoglycemia Enoxaparin Sodium (Lovenox) 30 mg SUBCUT Q24H [facility] Last Admin: 07/28/18 16:40 Dose: 30 mg Hydralazine HCl (Apresoline) 12.5 mg PO TID [facility] Last Admin: 07/29/18 08:07 Dose: 12.5 mg Ceftriaxone Sodium 1 gm/ (Sodium Chloride) 50 mls @ 100 mls/hr IV Q24H [facility] Last Admin: 07/28/18 16:27 Dose: 100 mls/hr Levofloxacin/Dextrose 750 mg/ (Premix) 150 mls @ 100 mls/hr IV Q24H [facility] Last Admin: 07/28/18 17:37 Dose: 100 mls/hr Insulin Glargine (Lantus Solostar) 20 units SUBCUT BID [facility] Last Admin: 07/29/18 08:11 Dose: 20 unit Insulin Human Lispro (Humalog) 0 unit SUBCUT QIDACANDBED [facility]; Protocol Last Admin: 07/29/18 08:10 Dose: 1 units Lactobacillus Rhamnosus (Culturelle) 1 cap PO BID [facility] Last Admin: 07/29/18 08:07 Dose: 1 cap Levothyroxine Sodium (Synthroid) 50 mcg PO ACBREAKFAST [facility] Last Admin: 07/29/18 08:06 Dose: 50 mcg Losartan Potassium (Cozaar) 50 mg PO BID [facility] Last Admin: 07/29/18 08:07 Dose: 50 mg Methylprednisolone Sodium Succinate (Solu-Medrol) 40 mg IVPUSH Q6H [facility] Last Admin: 07/29/18 04:04 Dose: 40 mg Ondansetron HCl (Zofran) 4 mg IV Q4H PRN PRN Reason: Nausea/Vomiting Polyethylene Glycol (Miralax) 17 gm PO DAILY PRN PRN Reason: Constipation Sodium Chloride (Saline Flush) 10 ml FLUSH ASDIRECTED PRN PRN Reason: Keep Vein Open Terazosin HCl (Hytrin) 10 mg PO DAILY [facility] Last Admin: 07/29/18 08:07 Dose: 10 mg Discontinued Medications Azithromycin 500 mg/ Sodium (Chloride) 250 mls @ 250 mls/hr IV Q24H [facility] Sodium Chloride (Normal Saline) 1,000 mls @ 125 mls/hr IV ASDIRECTED [facility] Last Admin: 07/29/18 02:32 Dose: 125 mls/hr - Exam Quality Assessment: Supplemental Oxygen, DVT Prophylaxis General: Alert, Oriented, Cooperative, Mild Distress Lungs: Decreased Breath Sounds. No: Rales, Rhonchi, Rub, Wheezing Cardiovascular: Regular Rate, Regular Rhythm, No Murmurs GI/Abdominal Exam: Soft, Non-Tender, No Organomegaly, No Distention Extremities: Non-Tender, No Pedal Edema - Problem List Review Problem List Initiated/Reviewed/Updated: Yes - My Orders Last 24 Hours: My Active Orders 07/28/18 15:39 Patient Status [ADT] Routine Ambulate [RC] QID Height and Weight [RC] DAILY Intake and Output [RC] QSHIFT Notify Provider Vital Signs [RC] ASDIRECTED Oxygen Therapy [RC] PRN Up With Assistance [RC] ASDIRECTED Up to Chair [RC] QID Vital Signs [RC] Q1H Acetaminophen [Tylenol] 650 mg PO Q4H PRN Albuterol [Proventil Neb Soln] 2.5 mg NEB Q4H PRN Ondansetron [Zofran] 4 mg IV Q4H PRN Polyethylene Glycol 3350 [MiraLAX] 17 gm PO DAILY PRN Sodium Chloride 0.9% [Saline Flush] 10 ml FLUSH ASDIRECTED PRN Saline Lock Insert [OM.PC] Routine Resuscitation Status Routine 07/28/18 15:40 Cardiac Monitoring [RC] Q6H Pulse Oximetry [RC] CONTINUOUS 07/28/18 15:41 RT Aerosol Therapy [RC] ASDIRECTED 07/28/18 15:45 CULTURE BLOOD [BC] Stat CULTURE RESPIRATORY + SMEAR [RM] Stat Blood Culture x2 Reflex Set [OM.PC] Urgent 07/28/18 16:00 CULTURE BLOOD [BC] Stat Enoxaparin [Lovenox] 30 mg SUBCUT Q24H Lactobacillus Rhamnosus GG [Culturelle] 1 cap PO BID methylPREDNISolone Sod Succ [Solu-MEDROL] 40 mg IVPUSH Q6H 07/28/18 16:30 cefTRIAXone [Rocephin] 1 gm Sodium Chloride 0.9% [Normal Saline] 50 ml IV Q24H 07/28/18 16:53 Blood Glucose Check, Bedside [RC] QIDACANDBED Communication Order [RC] STAT Diabetes Education [RC] Click to Edit Notify Provider [RC] PRN Dextrose 50% in Water 50 ml IV ASDIRECTED PRN Dextrose [Glutose 15] 15 gm PO ASDIRECTED PRN 07/28/18 17:00 Insulin Lispro [HumaLOG] See Protocol SUBCUT QIDACANDBED 07/28/18 18:00 Bumetanide [Bumex] 2 mg PO BIDDIURETIC Levofloxacin/Dextrose 5%-Water [Levaquin in D5W 750 MG/150 ML] 750 mg Premix Bag 1 bag IV Q24H 07/28/18 18:08 BIPAP Adult [RT BiPAP/CPAP] [RC] ASDIRECTED 07/28/18 21:00 Albuterol/Ipratropium [DuoNeb 3.0-0.5 MG/3 ML] 3 ml NEB QIDRT Carvedilol [Coreg] 6.25 mg PO BID Insulin Glarg,Human.Rec.Analog [LantUS Solostar] 20 units SUBCUT BID Losartan [Cozaar] 50 mg PO BID hydrALAZINE [Apresoline] 12.5 mg PO TID 07/28/18 Lunch 2 Gram Sodium Diet [DIET] 07/29/18 07:30 Levothyroxine [Synthroid] 50 mcg PO ACBREAKFAST 07/29/18 09:00 Aspirin [Halfprin] 81 mg PO DAILY Terazosin [Hytrin] 10 mg PO DAILY 07/29/18 09:59 Convert IV to Saline Lock [OM.PC] Routine 07/30/18 05:00 BASIC METABOLIC PANEL,BMP [CHEM] Timed TROPONIN I [CHEM] Timed 07/30/18 07:30 GLUCOSE POC LAB TO COLLECT [POC] QIDACANDBED 07/30/18 11:30 GLUCOSE POC LAB TO COLLECT [POC] QIDACANDBED 07/30/18 16:30 GLUCOSE POC LAB TO COLLECT [POC] QIDACANDBED 07/30/18 21:00 GLUCOSE POC LAB TO COLLECT [POC] QIDACANDBED 07/31/18 07:30 GLUCOSE POC LAB TO COLLECT [POC] QIDACANDBED 07/31/18 11:30 GLUCOSE POC LAB TO COLLECT [POC] QIDACANDBED 07/31/18 16:30 GLUCOSE POC LAB TO COLLECT [POC] QIDACANDBED 07/31/18 21:00 GLUCOSE POC LAB TO COLLECT [POC] QIDACANDBED 08/01/18 07:30 GLUCOSE POC LAB TO COLLECT [POC] QIDACANDBED 08/01/18 11:30 GLUCOSE POC LAB TO COLLECT [POC] QIDACANDBED 08/01/18 16:30 GLUCOSE POC LAB TO COLLECT [POC] QIDACANDBED 08/01/18 21:00 GLUCOSE POC LAB TO COLLECT [POC] QIDACANDBED 08/02/18 07:30 GLUCOSE POC LAB TO COLLECT [POC] QIDACANDBED 08/02/18 11:30 GLUCOSE POC LAB TO COLLECT [POC] QIDACANDBED 08/02/18 16:30 GLUCOSE POC LAB TO COLLECT [POC] QIDACANDBED - Plan Plan:: ASSESSMENT AND PLAN BILATERAL PNEUMONIA-improved since admission with less shortness of breath and cough -Name lock IV -Blood and sputum cultures pending -IV Rocephin and levofloxacin pending culture results HYPOXIC AND HYPERCAPNIC RESPIRATORY FAILURE-he developed increased respiratory rate after admission with tachycardia. Blood gases showed CO2 retention in addition to ongoing hypoxia requiring supplemental oxygen. Significantly improved with use of noninvasive positive pressure ventilation. -Continue intermittent use of BiPAP while resting and sleeping COPD EXACERBATION SECONDARY TO PNEUMONIA -Nebulized albuterol and duo nebs -Solu-Medrol 40 mg IV every 6 hours -Supplemental oxygen as needed TYPE 2 DIABETES MELLITUS -Low-dose sliding scale NovoLog -4 times a day glucometers -And 10 units usual dose of long acting insulin CHRONIC KIDNEY DISEASE STAGE IV-modest improvement in renal function -Mostly monitor urine output and renal function during hospital stay ELEVATED TROPONIN-likely secondary to demand ischemia in the setting of respiratory compromise and pneumonia, as well as underlying chronic kidney disease -Serial troponin levels MAINTENANCE ISSUES -DVT prophylaxis; Lovenox 30 mg subcutaneous daily -GI prophylaxis; not indicated -Barrientos catheter; not indicated -Nutrition; 2 g sodium diet -Nicotine dependence; not required CODE STATUS-FULL CODE ADMISSION STATUS-patient will be admitted to inpatient status, expect at least a 2 night hospital stay for evaluation and management of problems as outlined above. At the time of this admission I do not reasonably expected evaluation and management of this problem will require more than a 96 hour hospital stay. DISPOSITION-anticipate discharge to home after the hospital stay. PRIMARY CARE PROVIDER-Dr. Kendall
[2018-07-29] MEDS: cefTRIAXone 1 GM in Sodium Chloride 0.9% 50 ML IV SCH (16:28)
[2018-07-29] MEDS: Enoxaparin 30 MG/0.3 ML Syringe SUBCUT SCH (16:28)
[2018-07-30] MEDS ORDERED: Vancomycin 1 GM SDV IV SCH (01:00)
[2018-07-30] MEDS: Albuterol/Ipratropium 3.0-0.5 MG/3 ML Neb Soln NEB SCH ×4 (07:04→20:54)
[2018-07-30] MEDS: Insulin Lispro 100 Unit/ML 3 ML KwikPen SUBCUT SCH ×4 (08:18→20:51)
[2018-07-30] MEDS: Levothyroxine 50 MCG Tab PO SCH (08:19)
[2018-07-30] MEDS: hydrALAZINE 25 MG Tab PO SCH ×3 (08:20→20:54)
[2018-07-30] MEDS: Bumetanide 1 MG Tab PO SCH ×2 (08:20→15:55)
[2018-07-30] MEDS: Carvedilol 6.25 MG Tab PO SCH (08:21)
[2018-07-30] MEDS: Losartan 50 MG Tab PO SCH ×2 (08:21→20:57)
[2018-07-30] MEDS: Lactobacillus Rhamnosus GG (Probiotic) Cap PO SCH ×2 (08:22→20:57)
[2018-07-30] MEDS: Aspirin 81 MG Tab.EC PO SCH (08:22)
[2018-07-30] MEDS: Terazosin 5 MG Cap PO SCH (08:22)
[2018-07-30] MEDS: Insulin Glargine,Human Rec. Analog 100 Units/ML 3 ML Pen SUBCUT SCH ×2 (08:24→20:50)
[2018-07-30] MEDS: Polyethylene Glycol 3350 Powder 17 GM Packet PO PRN (08:31)
--- NOTE | 2018-07-30 09:15 | PCM.PN ---
- General Info Date of Service: 07/30/18 Subjective Update: Mr. Prince is showing further improvement since yesterday with less shortness of breath, he was transiently tachycardic yesterday afternoon. Heart rate has remained under good control since that time. He reports less shortness of breath and less cough compared to yesterday. - Review of Systems General: Reports: Weakness. Denies: Fever, Chills Pulmonary: Reports: Shortness of Breath, Cough, Sputum. Denies: Pleuritic Chest Pain, Hemoptysis, Wheezing Cardiovascular: Reports: Dyspnea on Exertion. Denies: Chest Pain, Palpitations , Orthopnea, PND, Edema Gastrointestinal: Reports: No Symptoms - Patient Data Vitals - Most Recent: Last Vital Signs Temp 96.9 F 07/30/18 08:00 Pulse 103 H 07/30/18 08:21 Resp 18 07/30/18 08:00 BP 145/86 H 07/30/18 08:22 Pulse Ox 90 L 07/30/18 08:00 Weight - Most Recent: 265 lb 10.512 oz I&O - Last 24 Hours: Intake & Output 07/29/18 07/30/18 07/30/18 22:59 06:59 14:59 Intake Total 450 Output Total 300 825 Balance -300 -375 Lab Results Last 24 Hours: Laboratory Results - last 24 hr 07/30/18 Range/Units 05:15 Sodium 143 (140-148) mmol/L Potassium 4.6 (3.6-5.2) mmol/L Chloride 108 (100-108) mmol/L Carbon Dioxide 29 (21-32) mmol/L Anion Gap 6.4 (5.0-14.0) mmol/L BUN 67 H (7-18) mg/dL Creatinine 2.9 H (0.8-1.3) mg/dL Est Cr Clr Drug Dosing 21.81 mL/min Estimated GFR (MDRD) 21 L (>60) Glucose 153 H (74-106) mg/dL Calcium 8.7 (8.5-10.1) mg/dL Troponin I 0.447 H* (0.000-0.056) ng/mL Phil Results Last 24 Hours: Microbiology 07/28/18 08:39 Gram Stain - Final Sputum - Expectorated 07/28/18 15:45 Aerobic Blood Culture - Preliminary Blood - Venous - Iv Start NO GROWTH AFTER 1 DAY Anaerobic Blood Culture - Preliminary 07/28/18 16:00 Aerobic Blood Culture - Preliminary Blood - Arm, Right NO GROWTH AFTER 1 DAY Anaerobic Blood Culture - Preliminary NO GROWTH AFTER 1 DAY Med Orders - Current: Current Medications Acetaminophen (Tylenol) 650 mg PO Q4H PRN PRN Reason: Pain (Mild 1-3)/fever Last Admin: 07/28/18 17:44 Dose: 650 mg Albuterol (Proventil Neb Soln) 2.5 mg NEB Q4H PRN PRN Reason: Shortness Of Breath/wheezing Albuterol/Ipratropium (Duoneb 3.0-0.5 Mg/3 Ml) 3 ml NEB QIDRT [facility] Last Admin: 07/30/18 07:04 Dose: 3 ml Aspirin (Halfprin) 81 mg PO DAILY [facility] Last Admin: 07/30/18 08:22 Dose: 81 mg Bumetanide (Bumex) 2 mg PO BIDDIURETIC [facility] Last Admin: 07/30/18 08:20 Dose: 2 mg Carvedilol (Coreg) 6.25 mg PO BID [facility] Last Admin: 07/30/18 08:21 Dose: 6.25 mg Dextrose (Glutose 15) 15 gm PO ASDIRECTED PRN PRN Reason: Hypoglycemia Dextrose/Water (Dextrose 50% In Water) 50 ml IV ASDIRECTED PRN PRN Reason: Hypoglycemia Enoxaparin Sodium (Lovenox) 30 mg SUBCUT Q24H [facility] Last Admin: 07/29/18 16:28 Dose: 30 mg Hydralazine HCl (Apresoline) 12.5 mg PO TID [facility] Last Admin: 07/30/18 08:20 Dose: 12.5 mg Ceftriaxone Sodium 1 gm/ (Sodium Chloride) 50 mls @ 100 mls/hr IV Q24H [facility] Last Admin: 07/29/18 16:28 Dose: 100 mls/hr Levofloxacin/Dextrose 750 mg/ (Premix) 150 mls @ 100 mls/hr IV Q48H [facility] Vancomycin HCl 1.5 gm/ Sodium (Chloride) 250 mls @ 166.667 mls/hr IV Q24H [facility] Last Admin: 07/30/18 01:10 Dose: 166.667 mls/hr Insulin Glargine (Lantus Solostar) 20 units SUBCUT BID [facility] Last Admin: 07/30/18 08:24 Dose: 20 unit Insulin Human Lispro (Humalog) 0 unit SUBCUT QIDACANDBED [facility]; Protocol Last Admin: 07/30/18 08:18 Dose: 1 units Lactobacillus Rhamnosus (Culturelle) 1 cap PO BID [facility] Last Admin: 07/30/18 08:22 Dose: 1 cap Levothyroxine Sodium (Synthroid) 50 mcg PO ACBREAKFAST [facility] Last Admin: 07/30/18 08:19 Dose: 50 mcg Losartan Potassium (Cozaar) 50 mg PO BID [facility] Last Admin: 07/30/18 08:21 Dose: 50 mg Ondansetron HCl (Zofran) 4 mg IV Q4H PRN PRN Reason: Nausea/Vomiting Polyethylene Glycol (Miralax) 17 gm PO DAILY PRN PRN Reason: Constipation Last Admin: 07/30/18 08:31 Dose: 17 gm Sodium Chloride (Saline Flush) 10 ml FLUSH ASDIRECTED PRN PRN Reason: Keep Vein Open Terazosin HCl (Hytrin) 10 mg PO DAILY [facility] Last Admin: 07/30/18 08:22 Dose: 10 mg Discontinued Medications Azithromycin 500 mg/ Sodium (Chloride) 250 mls @ 250 mls/hr IV Q24H [facility] Levofloxacin/Dextrose 750 mg/ (Premix) 150 mls @ 100 mls/hr IV Q24H [facility] Last Admin: 07/28/18 17:37 Dose: 100 mls/hr Sodium Chloride (Normal Saline) 1,000 mls @ 125 mls/hr IV ASDIRECTED [facility] Last Admin: 07/29/18 02:32 Dose: 125 mls/hr Methylprednisolone Sodium Succinate (Solu-Medrol) 40 mg IVPUSH Q6H [facility] Last Admin: 07/29/18 16:28 Dose: 40 mg Vancomycin HCl (Vancomycin) 1 gm IV .PHARMACY TO DOSE [facility] Stop: 07/30/18 01:01 - Exam Quality Assessment: Supplemental Oxygen, DVT Prophylaxis General: Alert, Oriented, Cooperative, Mild Distress Lungs: Clear to Auscultation, Normal Respiratory Effort Cardiovascular: Regular Rate, Regular Rhythm, No Murmurs GI/Abdominal Exam: Soft, Non-Tender, No Organomegaly, No Distention Back Exam: Normal Inspection, Full Range of Motion Extremities: Non-Tender, No Pedal Edema - Problem List Review Problem List Initiated/Reviewed/Updated: Yes - My Orders Last 24 Hours: My Active Orders 07/29/18 09:00 Aspirin [Halfprin] 81 mg PO DAILY Terazosin [Hytrin] 10 mg PO DAILY 07/29/18 09:59 Convert IV to Saline Lock [OM.PC] Routine 07/30/18 01:00 Vancomycin 1.5 gm Sodium Chloride 0.9% [Normal Saline] 250 ml IV Q24H 07/30/18 16:00 Levofloxacin/Dextrose 5%-Water [Levaquin in D5W 750 MG/150 ML] 750 mg Premix Bag 1 bag IV Q48H 07/31/18 05:00 BASIC METABOLIC PANEL,BMP [CHEM] Timed TROPONIN I [CHEM] Timed 07/31/18 07:30 GLUCOSE POC LAB TO COLLECT [POC] QIDACANDBED 07/31/18 11:30 GLUCOSE POC LAB TO COLLECT [POC] QIDACANDBED 07/31/18 16:30 GLUCOSE POC LAB TO COLLECT [POC] QIDACANDBED 07/31/18 21:00 GLUCOSE POC LAB TO COLLECT [POC] QIDACANDBED 08/01/18 07:30 GLUCOSE POC LAB TO COLLECT [POC] QIDACANDBED 08/01/18 11:30 GLUCOSE POC LAB TO COLLECT [POC] QIDACANDBED 08/01/18 16:30 GLUCOSE POC LAB TO COLLECT [POC] QIDACANDBED 08/01/18 21:00 GLUCOSE POC LAB TO COLLECT [POC] QIDACANDBED 08/02/18 00:01 VANCOMYCIN TROUGH [CHEM] Timed 08/02/18 07:30 GLUCOSE POC LAB TO COLLECT [POC] QIDACANDBED 08/02/18 11:30 GLUCOSE POC LAB TO COLLECT [POC] QIDACANDBED 08/02/18 16:30 GLUCOSE POC LAB TO COLLECT [POC] QIDACANDBED - Plan Plan:: ASSESSMENT AND PLAN BILATERAL PNEUMONIA-improved since admission with less shortness of breath and cough. Sputum growing gram-positive cocci, blood cultures growing gram-positive cocci. -Saline lock IV -Blood and sputum cultures pending -IV Rocephin and levofloxacin pending culture results -IV vancomycin added pending culture results HYPOXIC AND HYPERCAPNIC RESPIRATORY FAILURE-respiratory status has been stable with current management -Continue intermittent use of BiPAP while resting and sleeping COPD EXACERBATION SECONDARY TO PNEUMONIA -Nebulized albuterol and duo nebs -Supplemental oxygen as needed TYPE 2 DIABETES MELLITUS -Low-dose sliding scale NovoLog -4 times a day glucometers -And 10 units usual dose of long acting insulin CHRONIC KIDNEY DISEASE STAGE IV-modest improvement in renal function -Mostly monitor urine output and renal function during hospital stay ELEVATED TROPONIN-likely secondary to demand ischemia in the setting of respiratory compromise and pneumonia, as well as underlying chronic kidney disease. Troponin level remains elevated but stable from yesterday. -Serial troponin levels MAINTENANCE ISSUES -DVT prophylaxis; Lovenox 30 mg subcutaneous daily -GI prophylaxis; not indicated -Barrientos catheter; not indicated -Nutrition; 2 g sodium diet -Nicotine dependence; not required CODE STATUS-FULL CODE ADMISSION STATUS-patient will be admitted to inpatient status, expect at least a 2 night hospital stay for evaluation and management of problems as outlined above. At the time of this admission I do not reasonably expected evaluation and management of this problem will require more than a 96 hour hospital stay. DISPOSITION-anticipate discharge to home after the hospital stay. PRIMARY CARE PROVIDER-Dr. Kendall
[2018-07-30] MEDS ORDERED: Polyethylene Glycol 3350 Powder 17 GM Packet PO ONE (10:00)
[2018-07-30] MEDS ORDERED: Bisacodyl 10 MG Supp RECTAL ONE (10:00)
[2018-07-30] MEDS ORDERED: Adenosine 6 MG/2 ML SDV IVPUSH ONE ×2 (14:14)
--- NOTE | 2018-07-30 15:32 | PCM.SN ---
- Free Text/Narrative Note: Mr. Prince developed abrupt onset of neural complex tachycardia this afternoon. He was monitored for over an hour and remained in the rhythm. He has had transient episodes of similar rhythm during his hospital stay. 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 He was given 6 mg of the Adenocard which transiently slowed the rhythm, but did not convert. He was then given 12 mg of Adenocard, he had a few seconds of sinus rhythm and then went back to the supraventricular rhythm, rate of 150. Continuous infusion of asthma wall was started and shortly thereafter converted to sinus rhythm. He remained in sinus rhythm as the esmolol infusion was tapered and discontinued. Dose of Coreg will be increased to 12.5 mg twice daily. Plan to continue to monitor, use asthma wall infusion for any recurrent SVT.
[2018-07-30] MEDS: Enoxaparin 30 MG/0.3 ML Syringe SUBCUT SCH (15:57)
[2018-07-30] MEDS ORDERED: Levofloxacin/Dextrose 5%-Water 750 MG in Premix Bag 1 BAG IV SCH (16:00)
[2018-07-30] MEDS: cefTRIAXone 1 GM in Sodium Chloride 0.9% 50 ML IV SCH (16:31)
[2018-07-30] MEDS: Carvedilol 12.5 MG Tab PO SCH (20:56)
[2018-07-31] MEDS: Albuterol/Ipratropium 3.0-0.5 MG/3 ML Neb Soln NEB SCH ×4 (07:19→21:00)
[2018-07-31] MEDS: Insulin Lispro 100 Unit/ML 3 ML KwikPen SUBCUT SCH ×4 (08:03→21:09)
[2018-07-31] MEDS: Levothyroxine 50 MCG Tab PO SCH (08:05)
[2018-07-31] MEDS: Bumetanide 1 MG Tab PO SCH ×2 (08:05→14:06)
--- NOTE | 2018-07-31 09:30 | PCM.PN ---
- General Info Date of Service: 07/31/18 Subjective Update: Yesterday afternoon the patient had an episode of SVT that finally terminated after being started on an esmolol infusion. He has remained in sinus rhythm since that time. He has not had any chest pain or chest tightness. He does report a little bit of discomfort with coughing. No fevers. He did use noninvasive ventilation overnight while he was sleeping but is on nasal cannula this morning. Troponin level did jump from yesterday to this morning with a level around 5 noted this morning. Functional Status: Reports: Pain Controlled, Tolerating Diet - Review of Systems General: Reports: Weakness Pulmonary: Reports: Cough Cardiovascular: Denies: Chest Pain - Patient Data Vitals - Most Recent: Last Vital Signs Temp 36.1 C 07/31/18 08:00 Pulse 99 07/31/18 07:20 Resp 16 07/31/18 09:00 BP 108/37 L 07/31/18 09:00 Pulse Ox 92 L 07/31/18 09:00 Weight - Most Recent: 120.5 kg I&O - Last 24 Hours: Intake & Output 07/30/18 07/31/18 07/31/18 22:59 06:59 14:59 Intake Total 1058 Output Total 400 800 Balance -400 258 Lab Results Last 24 Hours: Laboratory Results - last 24 hr 07/31/18 07/31/18 Range/Units 05:51 06:40 Sodium 144 (140-148) mmol/L Potassium 4.2 (3.6-5.2) mmol/L Chloride 110 H (100-108) mmol/L Carbon Dioxide 27 (21-32) mmol/L Anion Gap 11.2 (5.0-14.0) mmol/L BUN 72 H (7-18) mg/dL Creatinine 2.7 H (0.8-1.3) mg/dL Est Cr Clr Drug Dosing 23.43 mL/min Estimated GFR (MDRD) 23 L (>60) Glucose 59 L (74-106) mg/dL Calcium 8.4 L (8.5-10.1) mg/dL Troponin I 5.195 H* 4.974 H* (0.000-0.056) ng/mL Phil Results Last 24 Hours: Microbiology 07/28/18 15:45 Aerobic Blood Culture - Preliminary Blood - Venous - Iv Start NO GROWTH AFTER 2 DAYS Anaerobic Blood Culture - Preliminary 07/28/18 08:39 Gram Stain - Final Sputum - Expectorated Respiratory Culture - Preliminary NORMAL RESPIRATORY [place] 1 DAY 07/28/18 16:00 Aerobic Blood Culture - Preliminary Blood - Arm, Right NO GROWTH AFTER 2 DAYS Anaerobic Blood Culture - Preliminary NO GROWTH AFTER 2 DAYS Med Orders - Current: Current Medications Acetaminophen (Tylenol) 650 mg PO Q4H PRN PRN Reason: Pain (Mild 1-3)/fever Last Admin: 07/28/18 17:44 Dose: 650 mg Albuterol (Proventil Neb Soln) 2.5 mg NEB Q4H PRN PRN Reason: Shortness Of Breath/wheezing Albuterol/Ipratropium (Duoneb 3.0-0.5 Mg/3 Ml) 3 ml NEB QIDRT [facility] Last Admin: 07/31/18 07:19 Dose: 3 ml Aspirin (Halfprin) 81 mg PO DAILY [facility] Last Admin: 07/30/18 08:22 Dose: 81 mg Bumetanide (Bumex) 2 mg PO BIDDIURETIC [facility] Last Admin: 07/31/18 08:05 Dose: 2 mg Carvedilol (Coreg) 12.5 mg PO BID [facility] Last Admin: 07/30/18 20:56 Dose: 12.5 mg Dextrose (Glutose 15) 15 gm PO ASDIRECTED PRN PRN Reason: Hypoglycemia Dextrose/Water (Dextrose 50% In Water) 50 ml IV ASDIRECTED PRN PRN Reason: Hypoglycemia Enoxaparin Sodium (Lovenox) 30 mg SUBCUT Q24H [facility] Last Admin: 07/30/18 15:57 Dose: 30 mg Hydralazine HCl (Apresoline) 12.5 mg PO TID [facility] Last Admin: 07/30/18 20:54 Dose: 12.5 mg Ceftriaxone Sodium 1 gm/ (Sodium Chloride) 50 mls @ 100 mls/hr IV Q24H [facility] Last Admin: 07/30/18 16:31 Dose: 100 mls/hr Levofloxacin/Dextrose 750 mg/ (Premix) 150 mls @ 100 mls/hr IV Q48H [facility] Last Admin: 07/30/18 15:57 Dose: 100 mls/hr Vancomycin HCl 1.5 gm/ Sodium (Chloride) 250 mls @ 166.667 mls/hr IV Q24H [facility] Last Admin: 07/31/18 00:19 Dose: 166.667 mls/hr Esmolol HCl (Esmolol Hcl In Sterile Water 2,500 Mg/250 Ml) 250 mls @ 36.15 mls/ hr IV TITRATE [facility]; Protocol Last Admin: 07/31/18 05:19 Dose: 50 mcg/kg/min, 36.15 mls/hr Insulin Glargine (Lantus Solostar) 20 units SUBCUT BID [facility] Last Admin: 07/30/18 20:50 Dose: 20 unit Insulin Human Lispro (Humalog) 0 unit SUBCUT QIDACANDBED [facility]; Protocol Last Admin: 07/31/18 08:03 Dose: Not Given Lactobacillus Rhamnosus (Culturelle) 1 cap PO BID [facility] Last Admin: 07/30/18 20:57 Dose: 1 cap Levothyroxine Sodium (Synthroid) 50 mcg PO ACBREAKFAST [facility] Last Admin: 07/31/18 08:05 Dose: 50 mcg Losartan Potassium (Cozaar) 50 mg PO BID [facility] Last Admin: 07/30/18 20:57 Dose: 50 mg Ondansetron HCl (Zofran) 4 mg IV Q4H PRN PRN Reason: Nausea/Vomiting Polyethylene Glycol (Miralax) 17 gm PO DAILY PRN PRN Reason: Constipation Last Admin: 07/30/18 08:31 Dose: 17 gm Sodium Chloride (Saline Flush) 10 ml FLUSH ASDIRECTED PRN PRN Reason: Keep Vein Open Terazosin HCl (Hytrin) 10 mg PO DAILY [facility] Last Admin: 07/30/18 08:22 Dose: 10 mg Discontinued Medications Adenosine (Adenocard) 6 mg IVPUSH NOW ONE Stop: 07/30/18 14:15 Last Admin: 07/30/18 13:45 Dose: 6 mg Adenosine (Adenocard) 12 mg IVPUSH NOW ONE Stop: 07/30/18 14:15 Last Admin: 07/30/18 14:00 Dose: 12 mg Bisacodyl (Dulcolax) 10 mg RECTAL ONETIME ONE Stop: 07/30/18 10:01 Last Admin: 07/30/18 11:00 Dose: 10 mg Carvedilol (Coreg) 6.25 mg PO BID [facility] Last Admin: 07/30/18 08:21 Dose: 6.25 mg Azithromycin 500 mg/ Sodium (Chloride) 250 mls @ 250 mls/hr IV Q24H [facility] Levofloxacin/Dextrose 750 mg/ (Premix) 150 mls @ 100 mls/hr IV Q24H [facility] Last Admin: 07/28/18 17:37 Dose: 100 mls/hr Sodium Chloride (Normal Saline) 1,000 mls @ 125 mls/hr IV ASDIRECTED [facility] Last Admin: 07/29/18 02:32 Dose: 125 mls/hr Methylprednisolone Sodium Succinate (Solu-Medrol) 40 mg IVPUSH Q6H [facility] Last Admin: 07/29/18 16:28 Dose: 40 mg Polyethylene Glycol (Miralax) 34 gm PO ONETIME ONE Stop: 07/30/18 10:01 Last Admin: 07/30/18 09:28 Dose: 17 gm Vancomycin HCl (Vancomycin) 1 gm IV .PHARMACY TO DOSE [facility] Stop: 07/30/18 01:01 - Exam Quality Assessment: Supplemental Oxygen General: Alert, Oriented, Cooperative, No Acute Distress Lungs: Normal Respiratory Effort, Rhonchi (mild upper resp rhonchi ) Cardiovascular: Regular Rate, Regular Rhythm GI/Abdominal Exam: Normal Bowel Sounds, Soft, No Distention Extremities: No Pedal Edema. No: Increased Warmth Skin: Warm, Dry Psy/Mental Status: Alert, Normal Affect - Problem List Review Problem List Initiated/Reviewed/Updated: Yes - My Orders Last 24 Hours: My Active Orders 07/31/18 09:26 EKG Documentation Completion [RC] ASDIRECTED EKG 12 Lead [EK] Urgent 07/31/18 12:00 TROPONIN I [CHEM] Q6H 07/31/18 18:00 TROPONIN I [CHEM] Q6H 08/01/18 05:00 BASIC METABOLIC PANEL,BMP [CHEM] Timed CBC W/O DIFF,HEMOGRAM [HEME] Timed (1) TROPONIN I [CHEM] Timed - Plan Plan:: ASSESSMENT AND PLAN BILATERAL PNEUMONIA - Sputum growing gram-positive cocci, blood cultures growing gram-positive cocci but identification is still pending. Ongoing improvement but still somewhat weak. Tolerating current antibiotics -Saline lock IV -IV Rocephin and levofloxacin pending culture results -IV vancomycin added pending culture results -Follow-up culture results tomorrow morning and adjust antibiotics as necessary HYPOXIC AND HYPERCAPNIC RESPIRATORY FAILURE - using noninvasive ventilation when sleeping but otherwise is on nasal cannula. -Continue intermittent use of NIPPV while resting and sleeping COPD EXACERBATION SECONDARY TO PNEUMONIA - no wheezing at this time. -Nebulized albuterol and duo nebs -Supplemental oxygen as needed Paroxysmal supraventricular tachycardia - patient had episode of tachycardia with regular narrow complex rhythm and a steady rate of 150. This did terminate after esmolol infusion was started. There has been no recurrence. -Beta lexi increased -Discontinue esmolol NSTEMI - initially thought to be demand ischemia in the setting of pneumonia but level has jumped significantly overnight. I suspect this was related to his SVT yesterday and probably represents very small vessel ischemia. There were no changes on the EKG. Patient has not had any chest pain or increasing shortness of breath. -Continue aspirin -Serial troponin levels -Treat infection as above TYPE 2 DIABETES MELLITUS - Hypoglycemic this morning. -Low-dose sliding scale NovoLog -4 times a day glucometers -Continue morning dose of long acting insulin but decreased bedtime dosing CHRONIC KIDNEY DISEASE STAGE IV - kidney function stable. -Mostly monitor urine output and renal function during hospital stay MAINTENANCE ISSUES -DVT prophylaxis; Lovenox 30 mg subcutaneous daily -GI prophylaxis; not indicated -Barrientos catheter; not indicated -Nutrition; 2 g sodium diet DISPOSITION - anticipate discharge to home after the hospital stay. Giovanni Connolly M.D.
[2018-07-31] MEDS: hydrALAZINE 25 MG Tab PO SCH ×3 (09:57→21:00)
[2018-07-31] MEDS: Losartan 50 MG Tab PO SCH ×2 (09:57→21:00)
[2018-07-31] MEDS: Carvedilol 12.5 MG Tab PO SCH ×2 (09:57→20:59)
[2018-07-31] MEDS: Aspirin 81 MG Tab.EC PO SCH (09:57)
[2018-07-31] MEDS: Lactobacillus Rhamnosus GG (Probiotic) Cap PO SCH ×2 (09:58→21:00)
[2018-07-31] MEDS: Terazosin 5 MG Cap PO SCH (09:58)
[2018-07-31] MEDS: Insulin Glargine,Human Rec. Analog 100 Units/ML 3 ML Pen SUBCUT SCH (10:11)
[2018-07-31] MEDS: Polyethylene Glycol 3350 Powder 17 GM Packet PO PRN (11:44)
[2018-07-31] MEDS: cefTRIAXone 1 GM in Sodium Chloride 0.9% 50 ML IV SCH (15:31)
[2018-07-31] MEDS: Enoxaparin 30 MG/0.3 ML Syringe SUBCUT SCH (15:31)
[2018-07-31] MEDS ORDERED: Insulin Glargine,Human Rec. Analog 100 Units/ML 3 ML Pen SUBCUT SCH (21:00)
[2018-08-01] MEDS: Albuterol/Ipratropium 3.0-0.5 MG/3 ML Neb Soln NEB SCH ×4 (07:16→20:53)
[2018-08-01] MEDS: Insulin Lispro 100 Unit/ML 3 ML KwikPen SUBCUT SCH ×4 (07:53→20:49)
[2018-08-01] MEDS: Levothyroxine 50 MCG Tab PO SCH (08:15)
[2018-08-01] MEDS: hydrALAZINE 25 MG Tab PO SCH ×3 (08:15→20:53)
[2018-08-01] MEDS: Lactobacillus Rhamnosus GG (Probiotic) Cap PO SCH ×2 (08:15→20:54)
[2018-08-01] MEDS: Aspirin 81 MG Tab.EC PO SCH (08:15)
[2018-08-01] MEDS: Bumetanide 1 MG Tab PO SCH ×2 (08:16→14:31)
[2018-08-01] MEDS: Carvedilol 12.5 MG Tab PO SCH ×2 (08:16→20:54)
[2018-08-01] MEDS: Terazosin 5 MG Cap PO SCH (08:17)
[2018-08-01] MEDS: Losartan 50 MG Tab PO SCH ×2 (08:18→20:54)
[2018-08-01] MEDS: Insulin Glargine,Human Rec. Analog 100 Units/ML 3 ML Pen SUBCUT SCH ×2 (08:39→20:48)
[2018-08-01] MEDS ORDERED: Insulin Glargine,Human Rec. Analog 100 Units/ML 3 ML Pen SUBCUT SCH (09:00)
--- NOTE | 2018-08-01 10:48 | PCM.PN ---
- General Info Date of Service: 08/01/18 Subjective Update: There were no acute events overnight. The patient did use noninvasive ventilation while he was sleeping but has been on 3-4 L of nasal cannula when he is not using this. He thinks his shortness of breath is better today. Cough has been more productive and he is producing some sputum. He has not had any fevers. Appetite has been good. He did have a low blood sugar again this morning despite changes in insulin yesterday. No complaints of abdominal pain. Sputum culture continues to show normal german. One out of 4 blood cultures grew out staph hominis. Functional Status: Reports: Pain Controlled, Tolerating Diet - Review of Systems General: Reports: Weakness Pulmonary: Reports: Shortness of Breath, Cough - Patient Data Vitals - Most Recent: Last Vital Signs Temp 36.6 C 08/01/18 07:44 Pulse 101 H 08/01/18 10:42 Resp 14 08/01/18 07:44 BP 139/79 08/01/18 08:18 Pulse Ox 94 L 08/01/18 10:42 Weight - Most Recent: 120.5 kg I&O - Last 24 Hours: Intake & Output 07/31/18 08/01/18 08/01/18 22:59 06:59 14:59 Intake Total 610 Output Total 950 650 Balance -950 -40 Lab Results Last 24 Hours: Laboratory Results - last 24 hr 07/31/18 07/31/18 08/01/18 Range/Units 12:00 18:00 05:00 WBC 8.8 (4.5-11.0) K/uL RBC 3.66 L (4.30-5.90) M/uL Hgb 10.9 L (12.0-15.0) g/dL Hct 36.1 L (40.0-54.0) % MCV 99 H (80-98) fL MCH 30 (27-31) pg MCHC 30 L (32-36) % Plt Count 165 (150-400) K/uL Sodium (140-148) mmol/L Potassium (3.6-5.2) mmol/L Chloride (100-108) mmol/L Carbon Dioxide (21-32) mmol/L Anion Gap (5.0-14.0) mmol/L BUN (7-18) mg/dL Creatinine (0.8-1.3) mg/dL Est Cr Clr Drug Dosing mL/min Estimated GFR (MDRD) (>60) Glucose (74-106) mg/dL Calcium (8.5-10.1) mg/dL Troponin I 3.756 H* 3.476 H* (0.000-0.056) ng/mL 08/01/18 Range/Units 05:00 WBC (4.5-11.0) K/uL RBC (4.30-5.90) M/uL Hgb (12.0-15.0) g/dL Hct (40.0-54.0) % MCV (80-98) fL MCH (27-31) pg MCHC (32-36) % Plt Count (150-400) K/uL Sodium 147 (140-148) mmol/L Potassium 4.3 (3.6-5.2) mmol/L Chloride 110 H (100-108) mmol/L Carbon Dioxide 31 (21-32) mmol/L Anion Gap 10.3 (5.0-14.0) mmol/L BUN 71 H (7-18) mg/dL Creatinine 2.9 H (0.8-1.3) mg/dL Est Cr Clr Drug Dosing 21.71 mL/min Estimated GFR (MDRD) 21 L (>60) Glucose 134 H (74-106) mg/dL Calcium 8.4 L (8.5-10.1) mg/dL Troponin I 2.118 H* (0.000-0.056) ng/mL Phil Results Last 24 Hours: Microbiology 07/28/18 08:39 Gram Stain - Final Sputum - Expectorated Respiratory Culture - Final NORMAL RESPIRATORY [place] 2 DAYS 07/28/18 15:45 Aerobic Blood Culture - Preliminary Blood - Venous - Iv Start NO GROWTH AFTER 3 DAYS Anaerobic Blood Culture - Final Staph Hominis Ss Hominis 07/28/18 16:00 Aerobic Blood Culture - Preliminary Blood - Arm, Right NO GROWTH AFTER 3 DAYS Anaerobic Blood Culture - Preliminary NO GROWTH AFTER 3 DAYS Med Orders - Current: Current Medications Acetaminophen (Tylenol) 650 mg PO Q4H PRN PRN Reason: Pain (Mild 1-3)/fever Last Admin: 07/28/18 17:44 Dose: 650 mg Albuterol (Proventil Neb Soln) 2.5 mg NEB Q4H PRN PRN Reason: Shortness Of Breath/wheezing Albuterol/Ipratropium (Duoneb 3.0-0.5 Mg/3 Ml) 3 ml NEB QIDRT [facility] Last Admin: 08/01/18 10:42 Dose: 3 ml Aspirin (Halfprin) 81 mg PO DAILY [facility] Last Admin: 08/01/18 08:15 Dose: 81 mg Bumetanide (Bumex) 2 mg PO BIDDIURETIC [facility] Last Admin: 08/01/18 08:16 Dose: 2 mg Carvedilol (Coreg) 12.5 mg PO BID [facility] Last Admin: 08/01/18 08:16 Dose: 12.5 mg Dextrose (Glutose 15) 15 gm PO ASDIRECTED PRN PRN Reason: Hypoglycemia Dextrose/Water (Dextrose 50% In Water) 50 ml IV ASDIRECTED PRN PRN Reason: Hypoglycemia Doxycycline Hyclate (Vibramycin) 100 mg PO BID [facility] Enoxaparin Sodium (Lovenox) 30 mg SUBCUT Q24H [facility] Last Admin: 07/31/18 15:31 Dose: 30 mg Hydralazine HCl (Apresoline) 12.5 mg PO TID [facility] Last Admin: 08/01/18 08:15 Dose: 12.5 mg Ceftriaxone Sodium 1 gm/ (Sodium Chloride) 50 mls @ 100 mls/hr IV Q24H [facility] Last Admin: 07/31/18 15:31 Dose: 100 mls/hr Insulin Glargine (Lantus Solostar) 15 units SUBCUT DAILY [facility] Last Admin: 08/01/18 08:39 Dose: 15 units Insulin Glargine (Lantus Solostar) 10 units SUBCUT BEDTIME [facility] Insulin Human Lispro (Humalog) 0 unit SUBCUT QIDACANDBED [facility]; Protocol Last Admin: 08/01/18 07:53 Dose: Not Given Lactobacillus Rhamnosus (Culturelle) 1 cap PO BID [facility] Last Admin: 08/01/18 08:15 Dose: 1 cap Levothyroxine Sodium (Synthroid) 50 mcg PO ACBREAKFAST [facility] Last Admin: 08/01/18 08:15 Dose: 50 mcg Losartan Potassium (Cozaar) 50 mg PO BID [facility] Last Admin: 08/01/18 08:18 Dose: 50 mg Ondansetron HCl (Zofran) 4 mg IV Q4H PRN PRN Reason: Nausea/Vomiting Polyethylene Glycol (Miralax) 17 gm PO DAILY PRN PRN Reason: Constipation Last Admin: 07/31/18 11:44 Dose: 17 gm Psyllium Husk (Metamucil Sugar Free) 1 pkt PO DAILY [facility] Sodium Chloride (Saline Flush) 10 ml FLUSH ASDIRECTED PRN PRN Reason: Keep Vein Open Last Admin: 08/01/18 02:40 Dose: 10 ml Terazosin HCl (Hytrin) 10 mg PO DAILY [facility] Last Admin: 08/01/18 08:17 Dose: 10 mg Discontinued Medications Adenosine (Adenocard) 6 mg IVPUSH NOW ONE Stop: 07/30/18 14:15 Last Admin: 07/30/18 13:45 Dose: 6 mg Adenosine (Adenocard) 12 mg IVPUSH NOW ONE Stop: 07/30/18 14:15 Last Admin: 07/30/18 14:00 Dose: 12 mg Bisacodyl (Dulcolax) 10 mg RECTAL ONETIME ONE Stop: 07/30/18 10:01 Last Admin: 07/30/18 11:00 Dose: 10 mg Carvedilol (Coreg) 6.25 mg PO BID [facility] Last Admin: 07/30/18 08:21 Dose: 6.25 mg Azithromycin 500 mg/ Sodium (Chloride) 250 mls @ 250 mls/hr IV Q24H [facility] Levofloxacin/Dextrose 750 mg/ (Premix) 150 mls @ 100 mls/hr IV Q24H [facility] Last Admin: 07/28/18 17:37 Dose: 100 mls/hr Sodium Chloride (Normal Saline) 1,000 mls @ 125 mls/hr IV ASDIRECTED [facility] Last Admin: 07/29/18 02:32 Dose: 125 mls/hr Levofloxacin/Dextrose 750 mg/ (Premix) 150 mls @ 100 mls/hr IV Q48H [facility] Last Admin: 07/30/18 15:57 Dose: 100 mls/hr Vancomycin HCl 1.5 gm/ Sodium (Chloride) 250 mls @ 166.667 mls/hr IV Q24H [facility] Last Admin: 08/01/18 00:37 Dose: 166.667 mls/hr Esmolol HCl (Esmolol Hcl In Sterile Water 2,500 Mg/250 Ml) 250 mls @ 36.15 mls/ hr IV TITRATE [facility]; Protocol Last Admin: 07/31/18 05:19 Dose: 50 mcg/kg/min, 36.15 mls/hr Insulin Glargine (Lantus Solostar) 20 units SUBCUT BID [facility] Last Admin: 07/31/18 10:11 Dose: 20 unit Insulin Glargine (Lantus Solostar) 15 units SUBCUT BEDTIME [facility] Last Admin: 07/31/18 21:01 Dose: 15 units Methylprednisolone Sodium Succinate (Solu-Medrol) 40 mg IVPUSH Q6H [facility] Last Admin: 07/29/18 16:28 Dose: 40 mg Polyethylene Glycol (Miralax) 34 gm PO ONETIME ONE Stop: 07/30/18 10:01 Last Admin: 07/30/18 09:28 Dose: 17 gm Vancomycin HCl (Vancomycin) 1 gm IV .PHARMACY TO DOSE [facility] Stop: 07/30/18 01:01 - Exam Quality Assessment: Supplemental Oxygen General: Alert, Oriented, Cooperative, No Acute Distress Neck: Supple Lungs: Normal Respiratory Effort, Crackles (left lung base) Cardiovascular: Regular Rhythm, Tachycardia GI/Abdominal Exam: Soft, No Distention Extremities: No Pedal Edema. No: Increased Warmth Skin: Warm, Dry Psy/Mental Status: Alert, Normal Affect - Problem List Review Problem List Initiated/Reviewed/Updated: Yes - My Orders Last 24 Hours: My Active Orders 08/01/18 09:00 Insulin Glarg,Human.Rec.Analog [LantUS Solostar] 15 units SUBCUT DAILY 08/01/18 10:43 Transfer Patient (Change bed) [ADT] Routine 08/01/18 10:45 Doxycycline [Vibramycin] 100 mg PO BID 08/01/18 10:46 Discontinue Telemetry Monitoring [Cardiac Monitoring Discontinue] [RC] Click to Edit Vital Signs [RC] Q4H 08/01/18 11:00 Psyllium Husk/Aspartame [Metamucil Sugar Free] 1 pkt PO DAILY 08/01/18 21:00 Insulin Glarg,Human.Rec.Analog [LantUS Solostar] 10 units SUBCUT BEDTIME 08/02/18 05:00 BASIC METABOLIC PANEL,BMP [CHEM] Timed TROPONIN I [CHEM] Timed - Plan Plan:: ASSESSMENT AND PLAN BILATERAL PNEUMONIA - Sputum growing growing normal respiratory german. One out of 4 blood cultures grew out staph hominis which may be a contaminant. Clinically he is improving. He did require noninvasive ventilation again last night but has been stable otherwise. No fevers. -Saline lock IV -Continue ceftriaxone -Start doxycycline -Discontinue vancomycin and levofloxacin HYPOXIC AND HYPERCAPNIC RESPIRATORY FAILURE - clinically doing better and I think we should be able to transition away from noninvasive ventilation. He is back to near his baseline of 3 L of supplemental oxygen. -Continue intermittent use of NIPPV while resting and sleeping COPD EXACERBATION SECONDARY TO PNEUMONIA - no wheezing at this time. -Nebulized albuterol and duo nebs -Supplemental oxygen as needed Paroxysmal supraventricular tachycardia - patient had episode of tachycardia with regular narrow complex rhythm and a steady rate of 150. This did terminate after esmolol infusion was started. There has been no recurrence. No recurrence since esmolol stopped. -Beta lexi increased NSTEMI - initially thought to be demand ischemia in the setting of pneumonia but level did jumped significantly overnight but has trended down since that time. No chest pain or EKG changes. I suspect this was related to his SVT. -Continue aspirin -Check troponin again tomorrow -Treat infection as above TYPE 2 DIABETES MELLITUS - Hypoglycemic again this morning despite changes in insulin yesterday. -Low-dose sliding scale NovoLog -4 times a day glucometers -Decrease dose of morning and bedtime insulin CHRONIC KIDNEY DISEASE STAGE IV - kidney function stable. -Mostly monitor urine output and renal function during hospital stay MAINTENANCE ISSUES -DVT prophylaxis; Lovenox 30 mg subcutaneous daily -GI prophylaxis; not indicated -Barrientos catheter; not indicated -Nutrition; 2 g sodium diet DISPOSITION - anticipate discharge to home with home care after the hospital stay. Patient is stable for transfer out of the intensive care unit at this time. Giovanni Connolly M.D.
[2018-08-01] MEDS: Psyllium Husk Powder Sugar Free 5.85 GM Packet PO SCH (11:14)
[2018-08-01] MEDS: Doxycycline 100 MG Cap PO SCH ×2 (11:41→20:54)
[2018-08-01] MEDS: cefTRIAXone 1 GM in Sodium Chloride 0.9% 50 ML IV SCH (16:21)
[2018-08-01] MEDS: Enoxaparin 30 MG/0.3 ML Syringe SUBCUT SCH (16:21)
[2018-08-02] MEDS: Albuterol/Ipratropium 3.0-0.5 MG/3 ML Neb Soln NEB SCH ×4 (07:16→21:41)
[2018-08-02] MEDS: Insulin Lispro 100 Unit/ML 3 ML KwikPen SUBCUT SCH ×4 (08:10→21:57)
[2018-08-02] MEDS: Bumetanide 1 MG Tab PO SCH ×2 (08:30→14:24)
[2018-08-02] MEDS: Aspirin 81 MG Tab.EC PO SCH (08:30)
[2018-08-02] MEDS: Doxycycline 100 MG Cap PO SCH ×2 (08:31→21:38)
[2018-08-02] MEDS: Levothyroxine 50 MCG Tab PO SCH (08:31)
[2018-08-02] MEDS: Lactobacillus Rhamnosus GG (Probiotic) Cap PO SCH ×2 (08:31→21:37)
[2018-08-02] MEDS: Carvedilol 12.5 MG Tab PO SCH ×2 (08:31→21:37)
[2018-08-02] MEDS: Losartan 50 MG Tab PO SCH ×2 (08:33→21:37)
[2018-08-02] MEDS: Psyllium Husk Powder Sugar Free 5.85 GM Packet PO SCH (08:34)
[2018-08-02] MEDS: hydrALAZINE 25 MG Tab PO SCH ×3 (08:34→21:37)
[2018-08-02] MEDS: Terazosin 5 MG Cap PO SCH (08:34)
[2018-08-02] MEDS: Insulin Glargine,Human Rec. Analog 100 Units/ML 3 ML Pen SUBCUT SCH ×2 (08:42→21:39)
--- NOTE | 2018-08-02 09:20 | PCM.PN ---
- General Info Date of Service: 08/02/18 Subjective Update: There were no acute events overnight. The patient did well without the use of noninvasive ventilation. He is back to his baseline of 3 L by nasal cannula. He has not had any fevers. Cough seems a little better today and has remained nonproductive. No new positive culture results. Strength is a little better today. Is able to ambulate around the room and short distances in the hallway. He does have a bloody nose this morning. Functional Status: Reports: Pain Controlled, Tolerating Diet, Ambulating - Review of Systems Pulmonary: Reports: Cough - Patient Data Vitals - Most Recent: Last Vital Signs Temp 37.3 C 08/02/18 08:19 Pulse 106 H 08/02/18 08:31 Resp 18 08/02/18 08:19 BP 157/92 H 08/02/18 08:34 Pulse Ox 94 L 08/02/18 08:19 Weight - Most Recent: 120.5 kg I&O - Last 24 Hours: Intake & Output 08/01/18 08/02/18 08/02/18 22:59 06:59 14:59 Intake Total 240 440 355 Output Total 475 225 Balance 240 -35 130 Lab Results Last 24 Hours: Laboratory Results - last 24 hr 08/02/18 Range/Units 05:06 Sodium 147 (140-148) mmol/L Potassium 4.3 (3.6-5.2) mmol/L Chloride 110 H (100-108) mmol/L Carbon Dioxide 31 (21-32) mmol/L Anion Gap 10.3 (5.0-14.0) mmol/L BUN 68 H (7-18) mg/dL Creatinine 2.7 H (0.8-1.3) mg/dL Est Cr Clr Drug Dosing 23.32 mL/min Estimated GFR (MDRD) 23 L (>60) Glucose 103 (74-106) mg/dL Calcium 8.2 L (8.5-10.1) mg/dL Troponin I 1.169 H* (0.000-0.056) ng/mL Phil Results Last 24 Hours: Microbiology 07/28/18 15:45 Aerobic Blood Culture - Preliminary Blood - Venous - Iv Start NO GROWTH AFTER 4 DAYS Anaerobic Blood Culture - Final Staph Hominis Ss Hominis 07/28/18 16:00 Aerobic Blood Culture - Preliminary Blood - Arm, Right NO GROWTH AFTER 4 DAYS Anaerobic Blood Culture - Preliminary NO GROWTH AFTER 4 DAYS 07/28/18 08:39 Gram Stain - Final Sputum - Expectorated Respiratory Culture - Final NORMAL RESPIRATORY GERMAN 2 DAYS Med Orders - Current: Current Medications Acetaminophen (Tylenol) 650 mg PO Q4H PRN PRN Reason: Pain (Mild 1-3)/fever Last Admin: 07/28/18 17:44 Dose: 650 mg Albuterol (Proventil Neb Soln) 2.5 mg NEB Q4H PRN PRN Reason: Shortness Of Breath/wheezing Albuterol/Ipratropium (Duoneb 3.0-0.5 Mg/3 Ml) 3 ml NEB QIDRT [facility] Last Admin: 08/02/18 07:16 Dose: 3 ml Aspirin (Halfprin) 81 mg PO DAILY [facility] Last Admin: 08/02/18 08:30 Dose: 81 mg Bumetanide (Bumex) 2 mg PO BIDDIURETIC [facility] Last Admin: 08/02/18 08:30 Dose: 2 mg Carvedilol (Coreg) 12.5 mg PO BID [facility] Last Admin: 08/02/18 08:31 Dose: 12.5 mg Dextrose (Glutose 15) 15 gm PO ASDIRECTED PRN PRN Reason: Hypoglycemia Dextrose/Water (Dextrose 50% In Water) 50 ml IV ASDIRECTED PRN PRN Reason: Hypoglycemia Doxycycline Hyclate (Vibramycin) 100 mg PO BID [facility] Last Admin: 08/02/18 08:31 Dose: 100 mg Enoxaparin Sodium (Lovenox) 30 mg SUBCUT Q24H [facility] Last Admin: 08/01/18 16:21 Dose: 30 mg Hydralazine HCl (Apresoline) 12.5 mg PO TID [facility] Last Admin: 08/02/18 08:34 Dose: 12.5 mg Insulin Glargine (Lantus Solostar) 15 units SUBCUT DAILY [facility] Last Admin: 08/02/18 08:42 Dose: 15 units Insulin Glargine (Lantus Solostar) 10 units SUBCUT BEDTIME [facility] Last Admin: 08/01/18 20:48 Dose: 10 unit Insulin Human Lispro (Humalog) 0 unit SUBCUT QIDACANDBED [facility]; Protocol Last Admin: 08/02/18 08:10 Dose: Not Given Lactobacillus Rhamnosus (Culturelle) 1 cap PO BID [facility] Last Admin: 08/02/18 08:31 Dose: 1 cap Levothyroxine Sodium (Synthroid) 50 mcg PO ACBREAKFAST [facility] Last Admin: 08/02/18 08:31 Dose: 50 mcg Losartan Potassium (Cozaar) 50 mg PO BID [facility] Last Admin: 08/02/18 08:33 Dose: 50 mg Ondansetron HCl (Zofran) 4 mg IV Q4H PRN PRN Reason: Nausea/Vomiting Polyethylene Glycol (Miralax) 17 gm PO DAILY PRN PRN Reason: Constipation Last Admin: 07/31/18 11:44 Dose: 17 gm Psyllium Husk (Metamucil Sugar Free) 1 pkt PO DAILY [facility] Last Admin: 08/02/18 08:34 Dose: 1 pkt Senna/Docusate Sodium (Senna Plus) 1 tab PO BID PRN PRN Reason: Constipation Last Admin: 08/01/18 11:14 Dose: 1 tab Sodium Chloride (Saline Flush) 10 ml FLUSH ASDIRECTED PRN PRN Reason: Keep Vein Open Last Admin: 08/01/18 02:40 Dose: 10 ml Terazosin HCl (Hytrin) 10 mg PO DAILY [facility] Last Admin: 08/02/18 08:34 Dose: 10 mg Discontinued Medications Adenosine (Adenocard) 6 mg IVPUSH NOW ONE Stop: 07/30/18 14:15 Last Admin: 07/30/18 13:45 Dose: 6 mg Adenosine (Adenocard) 12 mg IVPUSH NOW ONE Stop: 07/30/18 14:15 Last Admin: 07/30/18 14:00 Dose: 12 mg Bisacodyl (Dulcolax) 10 mg RECTAL ONETIME ONE Stop: 07/30/18 10:01 Last Admin: 07/30/18 11:00 Dose: 10 mg Carvedilol (Coreg) 6.25 mg PO BID [facility] Last Admin: 07/30/18 08:21 Dose: 6.25 mg Azithromycin 500 mg/ Sodium (Chloride) 250 mls @ 250 mls/hr IV Q24H [facility] Ceftriaxone Sodium 1 gm/ (Sodium Chloride) 50 mls @ 100 mls/hr IV Q24H [facility] Last Admin: 08/01/18 16:21 Dose: 100 mls/hr Levofloxacin/Dextrose 750 mg/ (Premix) 150 mls @ 100 mls/hr IV Q24H [facility] Last Admin: 07/28/18 17:37 Dose: 100 mls/hr Sodium Chloride (Normal Saline) 1,000 mls @ 125 mls/hr IV ASDIRECTED [facility] Last Admin: 07/29/18 02:32 Dose: 125 mls/hr Levofloxacin/Dextrose 750 mg/ (Premix) 150 mls @ 100 mls/hr IV Q48H [facility] Last Admin: 07/30/18 15:57 Dose: 100 mls/hr Vancomycin HCl 1.5 gm/ Sodium (Chloride) 250 mls @ 166.667 mls/hr IV Q24H [facility] Last Admin: 08/01/18 00:37 Dose: 166.667 mls/hr Esmolol HCl (Esmolol Hcl In Sterile Water 2,500 Mg/250 Ml) 250 mls @ 36.15 mls/ hr IV TITRATE [facility]; Protocol Last Admin: 07/31/18 05:19 Dose: 50 mcg/kg/min, 36.15 mls/hr Insulin Glargine (Lantus Solostar) 20 units SUBCUT BID [facility] Last Admin: 07/31/18 10:11 Dose: 20 unit Insulin Glargine (Lantus Solostar) 15 units SUBCUT BEDTIME [facility] Last Admin: 07/31/18 21:01 Dose: 15 units Methylprednisolone Sodium Succinate (Solu-Medrol) 40 mg IVPUSH Q6H [facility] Last Admin: 07/29/18 16:28 Dose: 40 mg Polyethylene Glycol (Miralax) 34 gm PO ONETIME ONE Stop: 07/30/18 10:01 Last Admin: 07/30/18 09:28 Dose: 17 gm Vancomycin HCl (Vancomycin) 1 gm IV .PHARMACY TO DOSE [facility] Stop: 07/30/18 01:01 - Exam Quality Assessment: Supplemental Oxygen General: Alert, Oriented, Cooperative, No Acute Distress Lungs: Normal Respiratory Effort, Crackles (left lung base), Rhonchi (mild upper airway ) Cardiovascular: Regular Rhythm, Tachycardia GI/Abdominal Exam: Soft, No Distention Extremities: No Pedal Edema. No: Increased Warmth Skin: Warm, Dry Psy/Mental Status: Alert, Normal Affect - Problem List Review Problem List Initiated/Reviewed/Updated: Yes - My Orders Last 24 Hours: My Active Orders 08/01/18 09:00 Insulin Glarg,Human.Rec.Analog [LantUS Solostar] 15 units SUBCUT DAILY 08/01/18 10:43 Transfer Patient (Change bed) [ADT] Routine 08/01/18 10:45 Doxycycline [Vibramycin] 100 mg PO BID 08/01/18 10:46 Vital Signs [RC] Q4H 08/01/18 10:48 Docusate Sodium/Sennosides [Senna Plus] 1 tab PO BID PRN 08/01/18 11:00 Psyllium Husk/Aspartame [Metamucil Sugar Free] 1 pkt PO DAILY 08/01/18 11:54 PT Evaluation and Treatment [CONS] Routine 08/01/18 21:00 Insulin Glarg,Human.Rec.Analog [LantUS Solostar] 10 units SUBCUT BEDTIME 08/03/18 05:00 BASIC METABOLIC PANEL,BMP [CHEM] Timed CBC W/O DIFF,HEMOGRAM [HEME] Timed (1) TROPONIN I [CHEM] Timed - Plan Plan:: ASSESSMENT AND PLAN BILATERAL PNEUMONIA - Sputum growing growing normal respiratory german. One out of 4 blood cultures grew out staph hominis which may be a contaminant. Ongoing clinical improvement. Did well without noninvasive ventilation. Back to baseline oxygen requirement. Still weak but otherwise doing well. -Saline lock IV -discontinue ceftriaxone -Continue doxycycline HYPOXIC AND HYPERCAPNIC RESPIRATORY FAILURE - clinically doing better and did not require noninvasive ventilation. -Supplement oxygen COPD EXACERBATION SECONDARY TO PNEUMONIA - no wheezing at this time. -Nebulized albuterol and duo nebs -Supplemental oxygen as needed Paroxysmal supraventricular tachycardia - patient had episode of tachycardia with regular narrow complex rhythm and a steady rate of 150. This did terminate after esmolol infusion was started. There has been no recurrence. No recurrence since esmolol stopped. -Beta lexi increased NSTEMI - level trending down and no symptoms. No chest pain or EKG changes. I suspect this was related to his SVT. -Continue aspirin -Check troponin again in the morning -Treat infection as above TYPE 2 DIABETES MELLITUS - Hypoglycemic again this morning despite changes in insulin yesterday. -Low-dose sliding scale NovoLog -4 times a day glucometers -Decrease dose of morning and bedtime insulin CHRONIC KIDNEY DISEASE STAGE IV - kidney function stable. -Mostly monitor urine output and renal function during hospital stay MAINTENANCE ISSUES -DVT prophylaxis; Lovenox 30 mg subcutaneous daily -GI prophylaxis; not indicated -Barrientos catheter; not indicated -Nutrition; 2 g sodium diet DISPOSITION - anticipate discharge to home with home care after the hospital stay, likely tomorrow if stable overnight Giovanni Connolly M.D.
[2018-08-02] MEDS: Enoxaparin 30 MG/0.3 ML Syringe SUBCUT SCH (16:54)
[2018-08-03] MEDS: Albuterol/Ipratropium 3.0-0.5 MG/3 ML Neb Soln NEB SCH ×3 (07:00→14:23)
[2018-08-03] MEDS: Levothyroxine 50 MCG Tab PO SCH (07:45)
[2018-08-03] MEDS: Insulin Lispro 100 Unit/ML 3 ML KwikPen SUBCUT SCH ×2 (07:45→12:50)
[2018-08-03] MEDS: Psyllium Husk Powder Sugar Free 5.85 GM Packet PO SCH (09:12)
[2018-08-03] MEDS: Carvedilol 12.5 MG Tab PO SCH (09:13)
[2018-08-03] MEDS: Lactobacillus Rhamnosus GG (Probiotic) Cap PO SCH (09:13)
[2018-08-03] MEDS: Bumetanide 1 MG Tab PO SCH ×2 (09:15→15:02)
[2018-08-03] MEDS: hydrALAZINE 25 MG Tab PO SCH ×2 (09:15→15:02)
[2018-08-03] MEDS: Losartan 50 MG Tab PO SCH (09:16)
[2018-08-03] MEDS: Aspirin 81 MG Tab.EC PO SCH (09:16)
[2018-08-03] MEDS: Doxycycline 100 MG Cap PO SCH (09:19)
[2018-08-03] MEDS: Insulin Glargine,Human Rec. Analog 100 Units/ML 3 ML Pen SUBCUT SCH (09:25)
[2018-08-03] MEDS: Terazosin 5 MG Cap PO SCH (10:00)
--- NOTE | 2018-08-03 12:38 | PCM.DCSUM1 ---
Discharge Summary - Hospital Course Brief History: 83-year-old male with history of oxygen dependent COPD, stage IV chronic kidney disease and insulin-dependent diabetes mellitus who presented to the clinic with weakness, cough and fever. Workup in the clinic was consistent with bilateral pneumonia with acute on chronic respiratory failure. He was admitted to the hospital for further management given his significant weakness and respiratory compromise. Diagnosis: Stroke: No - Discharge Data Discharge Date: 08/03/18 Discharge Disposition: Home, [facility] 06 Condition: Good - Discharge Diagnosis/Problem(s) (1) Bilateral pneumonia SNOMED Code(s): 757220154 ICD Code: J18.9 - PNEUMONIA, UNSPECIFIED ORGANISM Status: Acute Current Visit: Yes Qualifiers: Pneumonia type: due to unspecified organism Lung location: lower lobe of lung Qualified Code(s): J18.1 - Lobar pneumonia, unspecified organism (2) Acute respiratory failure with hypoxia and hypercapnia SNOMED Code(s): 507515724 ICD Code: J96.01 - ACUTE RESPIRATORY FAILURE WITH HYPOXIA; J96.02 - ACUTE RESPIRATORY FAILURE WITH HYPERCAPNIA Status: Acute Current Visit: Yes (3) COPD (chronic obstructive pulmonary disease) SNOMED Code(s): 84292270 ICD Code: J44.9 - CHRONIC OBSTRUCTIVE PULMONARY DISEASE, UNSPECIFIED Status : Acute Current Visit: No Qualifiers: COPD type: COPD with acute exacerbation Qualified Code(s): J44.1 - Chronic obstructive pulmonary disease with (acute) exacerbation (4) Diabetes mellitus type 2 SNOMED Code(s): 01307237 ICD Code: E11.9 - TYPE 2 DIABETES MELLITUS WITHOUT COMPLICATIONS Status: Chronic Current Visit: No (5) CKD (chronic kidney disease) stage 4, GFR 15-29 ml/min SNOMED Code(s): 749408900 ICD Code: N18.4 - CHRONIC KIDNEY DISEASE, STAGE 4 (SEVERE) Status: Chronic Current Visit: No (6) Non-ST elevation (NSTEMI) myocardial infarction SNOMED Code(s): 03609702 ICD Code: I21.4 - NON-ST ELEVATION (NSTEMI) MYOCARDIAL INFARCTION Status: Acute Current Visit: Yes - Patient Summary/Data Consults: Consultations 08/01/18 11:54 PT Evaluation and Treatment [CONS] Routine Please Evaluate and Treat. PT Reason for Consult: Strengthening This query below is only for informational purposes and is not editable. Admission Diagnosis/Problem: Pneumonia Hospital Course: Arthur presented initially to the clinic with weakness, cough, fever and fatigue. Workup in the clinic was suggestive of bilateral pneumonia with acute on chronic respiratory failure and probable COPD exacerbation. He was sent to the hospital for direct admission. At the time of admission cultures were obtained and a troponin level was also obtained which was mildly elevated at 0.3. He was started on broad-spectrum antibiotics. Overnight following admission on July 28 into the he did require noninvasive ventilation. Arterial blood gases were obtained and did show some CO2 retention. Over the next 24 hours with the antibiotics, steroids and noninvasive ventilation he did make some improvement. Troponin level remained mildly elevated but was relatively stable at 0.4. On July 29 he did have several very short episodes of a narrow complex tachycardia and rates in the 150s. These episodes self terminated. From the into 30 July the patient did show some further improvement. Shortness of breath and weakness were slowly improving. Vital signs were stable. Troponin level remained stable as well. On the afternoon of July 30 he had an episode of prolonged narrow complex tachycardia that appeared to be SVT on EKG. He received doses of adenosine without any improvement. He was started on esmolol infusion and had returned to sinus rhythm shortly thereafter. He remained in sinus rhythm overnight following this episode. He was still requiring noninvasive ventilation when he was sleeping at that point. On the morning of July 31 the patient clinically was doing quite well. Shortness of breath continued to improve and he did remain weak but was making improvements in his strength. Unfortunately his troponin level jumped from 0.4 up to 5 this morning. He did not have any chest pain. We did recheck an EKG and there were no changes from his baseline EKG. It was unclear if this represented small vessel ischemia with his tachycardia the day before or if this was a non-ST elevation myocardial infarction. Given his complete lack of symptoms I suspect this was probably small vessel disease exacerbated by his tachycardia the day before with impaired clearing because of his stage IV chronic kidney disease. His vital signs remained stable and he was asymptomatic. We did manage this medically by increasing his carvedilol. He has not had any chest pain. From July 31 through the he continued to have slow and steady improvement. We were able to wean him off the noninvasive ventilation. His troponin level has steadily trended down at the time of discharge. He has remained chest pain- free. We did have a blood culture that was positive for staph hominis but this was only one out of 4 bottles. Sputum culture never grown a culprit bacteria. Antibiotics have been narrowed down to just doxycycline. He has tolerated his diet. He's been up and walking around. He is back to his baseline oxygen requirement of 3 L/m. He feels well enough for discharge home at this time. He is interested in home care. He will need for an half additional days of antibiotic therapy after discharge. Creatinine remains at baseline or slightly better with a GFR of 25. Also noted during the hospital stay were 2 episodes of symptomatic hypoglycemia. These occurred despite reductions in his insulin dosing compared to home dosing. Blood sugars have been stable for the past 24 hours prior to discharge. I believe he will be safe to return to his usual home dosing since things have been well-controlled once he gets back to his usual environment. - Patient Instructions Diet: Diabetic Diet Activity: As Tolerated Showering/Bathing: May Shower Notify Provider of: Fever, Increased Pain, Nausea and/or Vomiting Other/Special Instructions: 1. You were in the hospital for management of bilateral pneumonia with acute on chronic hypoxic respiratory failure. Your condition has been improving with antibiotic therapy. You are back to your baseline oxygen requirement. I do recommend additional antibiotic therapy with doxycycline. You should take 100 mg twice daily with food for 9 more doses. Your next dose is due tonight. I recommend that you take this antibiotic with food to avoid stomach upset. 2. Continue your other home medications as previously prescribed. 3. I have placed a referral to home health care. They will provide nursing, physical therapy, occupational therapy and home health aide to ease your transition home from the hospital. 4. Follow up with Dr. Kendall is scheduled. 5. Seek medical attention if you have fever greater than 101, severe shortness of breath or if you develop persistent vomiting or severe diarrhea. - Discharge Plan *PRESCRIPTION DRUG MONITORING PROGRAM REVIEWED*: Not Applicable *COPY OF PRESCRIPTION DRUG MONITORING REPORT IN PATIENT SHANIQUA: Not Applicable Prescriptions/Med Rec: Doxycycline Hyclate 100 mg PO BID #9 capsule Home Medications: Home Meds Carvedilol [Coreg] 6.25 mg PO BID 03/14/14 [History] Cholecalciferol (Vitamin D3) [Vitamin D3] 2,000 unit PO DAILY 03/14/14 [History] metroNIDAZOLE [metroNIDAZOLE 0.75% Gel] 45 gm .XX DAILY 03/14/14 [History] Aspirin [Ecotrin EC] 81 mg PO DAILY 11/14/16 [History] Losartan [Cozaar] 50 mg PO BID 11/14/16 [History] Multivitamin [Multi-Vitamin Daily] 1 tab PO DAILY 11/14/16 [History] Terazosin [Hytrin] 10 mg PO DAILY 11/14/16 [History] Bumetanide [Bumex] 2 mg PO BID #60 tab 11/26/17 [Rx] D-Mannose 25 gm MC DAILY 11/29/17 [History] Levothyroxine [Synthroid] 50 mcg PO ACBREAKFAST 07/07/18 [History] hydrALAZINE [Apresoline] 12.5 mg PO TID 07/07/18 [History] Insulin Glargine,Hum.Rec.Anlog [Basaglar Kwikpen U-100] 20 unit SQ BID 07/28/18 [History] Doxycycline Hyclate 100 mg PO BID #9 capsule 08/03/18 [Rx] Oxygen Therapy Mode: Nasal Cannula Oxygen Flow Rate (L/min): 3 Patient Handouts: Community-Acquired Pneumonia, Adult, [id number] Referrals: Adriano Kendall MD [Primary Care Provider] - 08/14/18 1:00 pm (Please arrive 15 minutes kobe to register for your upcoming appointment.) - Discharge Summary/Plan Comment DC Time >30 min.: Yes (40 - setting up home care) - Patient Data Vitals - Most Recent: Last Vital Signs Temp 36.4 C 08/03/18 07:19 Pulse 90 08/03/18 11:10 Resp 16 08/03/18 07:19 BP 158/81 H 08/03/18 10:00 Pulse Ox 96 08/03/18 07:19 Weight - Most Recent: 120.5 kg I&O - Last 24 hours: Intake & Output 08/02/18 08/03/18 08/03/18 22:59 06:59 14:59 Intake Total 200 480 Balance 200 480 Lab Results - Last 24 hrs: Laboratory Results - last 24 hr 08/03/18 08/03/18 Range/Units 04:20 04:20 WBC 6.5 (4.5-11.0) K/uL RBC 3.51 L (4.30-5.90) M/uL Hgb 10.5 L (12.0-15.0) g/dL Hct 33.5 L (40.0-54.0) % MCV 95 (80-98) fL MCH 30 (27-31) pg MCHC 31 L (32-36) % Plt Count 95 L (150-400) K/uL Sodium 146 (140-148) mmol/L Potassium 4.2 (3.6-5.2) mmol/L Chloride 111 H (100-108) mmol/L Carbon Dioxide 31 (21-32) mmol/L Anion Gap 8.2 (5.0-14.0) mmol/L BUN 58 H (7-18) mg/dL Creatinine 2.5 H (0.8-1.3) mg/dL Est Cr Clr Drug Dosing 25.18 mL/min Estimated GFR (MDRD) 25 L (>60) Glucose 70 L (74-106) mg/dL Calcium 8.6 (8.5-10.1) mg/dL Troponin I 0.876 H* (0.000-0.056) ng/mL [facility]IA Results - Last 24 hrs: Microbiology 07/28/18 15:45 Aerobic Blood Culture - Final Blood - Venous - Iv Start NO GROWTH AFTER 5 DAYS Anaerobic Blood Culture - Final Staph Hominis Ss Hominis 07/28/18 16:00 Aerobic Blood Culture - Final Blood - Arm, Right NO GROWTH AFTER 5 DAYS Anaerobic Blood Culture - Final NO GROWTH AFTER 5 DAYS Med Orders - Current: Current Medications Acetaminophen (Tylenol) 650 mg PO Q4H PRN PRN Reason: Pain (Mild 1-3)/fever Last Admin: 07/28/18 17:44 Dose: 650 mg Albuterol (Proventil Neb Soln) 2.5 mg NEB Q4H PRN PRN Reason: Shortness Of Breath/wheezing Albuterol/Ipratropium (Duoneb 3.0-0.5 Mg/3 Ml) 3 ml NEB QIDRT [facility] Last Admin: 08/03/18 11:09 Dose: 3 ml Aspirin (Halfprin) 81 mg PO DAILY [facility] Last Admin: 08/03/18 09:16 Dose: 81 mg Bumetanide (Bumex) 2 mg PO BIDDIURETIC [facility] Last Admin: 08/03/18 09:15 Dose: 2 mg Carvedilol (Coreg) 12.5 mg PO BID [facility] Last Admin: 08/03/18 09:13 Dose: 12.5 mg Dextrose (Glutose 15) 15 gm PO ASDIRECTED PRN PRN Reason: Hypoglycemia Dextrose/Water (Dextrose 50% In Water) 50 ml IV ASDIRECTED PRN PRN Reason: Hypoglycemia Doxycycline Hyclate (Vibramycin) 100 mg PO BID [facility] Last Admin: 08/03/18 09:19 Dose: 100 mg Enoxaparin Sodium (Lovenox) 30 mg SUBCUT Q24H [facility] Last Admin: 08/02/18 16:54 Dose: 30 mg Hydralazine HCl (Apresoline) 12.5 mg PO TID [facility] Last Admin: 08/03/18 09:15 Dose: 12.5 mg Insulin Glargine (Lantus Solostar) 15 units SUBCUT DAILY [facility] Last Admin: 08/03/18 09:25 Dose: 15 units Insulin Glargine (Lantus Solostar) 10 units SUBCUT BEDTIME [facility] Last Admin: 08/02/18 21:39 Dose: 10 unit Insulin Human Lispro (Humalog) 0 unit SUBCUT QIDACANDBED [facility]; Protocol Last Admin: 08/03/18 07:45 Dose: Not Given Lactobacillus Rhamnosus (Culturelle) 1 cap PO BID [facility] Last Admin: 08/03/18 09:13 Dose: 1 cap Levothyroxine Sodium (Synthroid) 50 mcg PO ACBREAKFAST [facility] Last Admin: 08/03/18 07:45 Dose: 50 mcg Losartan Potassium (Cozaar) 50 mg PO BID [facility] Last Admin: 08/03/18 09:16 Dose: 50 mg Ondansetron HCl (Zofran) 4 mg IV Q4H PRN PRN Reason: Nausea/Vomiting Polyethylene Glycol (Miralax) 17 gm PO DAILY PRN PRN Reason: Constipation Last Admin: 07/31/18 11:44 Dose: 17 gm Psyllium Husk (Metamucil Sugar Free) 1 pkt PO DAILY [facility] Last Admin: 08/03/18 09:12 Dose: 1 pkt Senna/Docusate Sodium (Senna Plus) 1 tab PO BID PRN PRN Reason: Constipation Last Admin: 08/01/18 11:14 Dose: 1 tab Sodium Chloride (Saline Flush) 10 ml FLUSH ASDIRECTED PRN PRN Reason: Keep Vein Open Last Admin: 08/01/18 02:40 Dose: 10 ml Terazosin HCl (Hytrin) 10 mg PO DAILY [facility] Last Admin: 08/03/18 10:00 Dose: 10 mg Discontinued Medications Adenosine (Adenocard) 6 mg IVPUSH NOW ONE Stop: 07/30/18 14:15 Last Admin: 07/30/18 13:45 Dose: 6 mg Adenosine (Adenocard) 12 mg IVPUSH NOW ONE Stop: 07/30/18 14:15 Last Admin: 07/30/18 14:00 Dose: 12 mg Bisacodyl (Dulcolax) 10 mg RECTAL ONETIME ONE Stop: 07/30/18 10:01 Last Admin: 07/30/18 11:00 Dose: 10 mg Carvedilol (Coreg) 6.25 mg PO BID [facility] Last Admin: 07/30/18 08:21 Dose: 6.25 mg Azithromycin 500 mg/ Sodium (Chloride) 250 mls @ 250 mls/hr IV Q24H [facility] Ceftriaxone Sodium 1 gm/ (Sodium Chloride) 50 mls @ 100 mls/hr IV Q24H [facility] Last Admin: 08/01/18 16:21 Dose: 100 mls/hr Levofloxacin/Dextrose 750 mg/ (Premix) 150 mls @ 100 mls/hr IV Q24H [facility] Last Admin: 07/28/18 17:37 Dose: 100 mls/hr Sodium Chloride (Normal Saline) 1,000 mls @ 125 mls/hr IV ASDIRECTED [facility] Last Admin: 07/29/18 02:32 Dose: 125 mls/hr Levofloxacin/Dextrose 750 mg/ (Premix) 150 mls @ 100 mls/hr IV Q48H [facility] Last Admin: 07/30/18 15:57 Dose: 100 mls/hr Vancomycin HCl 1.5 gm/ Sodium (Chloride) 250 mls @ 166.667 mls/hr IV Q24H [facility] Last Admin: 08/01/18 00:37 Dose: 166.667 mls/hr Esmolol HCl (Esmolol Hcl In Sterile Water 2,500 Mg/250 Ml) 250 mls @ 36.15 mls/ hr IV TITRATE [facility]; Protocol Last Admin: 07/31/18 05:19 Dose: 50 mcg/kg/min, 36.15 mls/hr Insulin Glargine (Lantus Solostar) 20 units SUBCUT BID [facility] Last Admin: 07/31/18 10:11 Dose: 20 unit Insulin Glargine (Lantus Solostar) 15 units SUBCUT BEDTIME [facility] Last Admin: 07/31/18 21:01 Dose: 15 units Methylprednisolone Sodium Succinate (Solu-Medrol) 40 mg IVPUSH Q6H [facility] Last Admin: 07/29/18 16:28 Dose: 40 mg Polyethylene Glycol (Miralax) 34 gm PO ONETIME ONE Stop: 07/30/18 10:01 Last Admin: 07/30/18 09:28 Dose: 17 gm Vancomycin HCl (Vancomycin) 1 gm IV .PHARMACY TO DOSE [facility] Stop: 07/30/18 01:01
[2018-08-03 15:03] VITALS: BP 132/74
== END 2018-08-03 15:30 | disposition home health service (06) | DRG 193 ==
LOC: JP.ICU 15:15 → JP.MS 08-02 13:56
PROVIDERS: ADMIT Hospitalist; ATTEND Internal Medicine
PROC: 5A0935Z Assistance with Respiratory Ventilation, Less than 24 Consecutive Hours (ICD-10-PCS; principal; 2018-07-31)
DX: J18.9 Pneumonia, unspecified organism (principal); J96.22 Acute and chronic respiratory failure with hypercapnia; J96.21 Acute and chronic respiratory failure with hypoxia; I21.4 Non-ST elevation (NSTEMI) myocardial infarction; J44.0 Chronic obstructive pulmonary disease with (acute) lower respiratory infection; J44.1 Chronic obstructive pulmonary disease with (acute) exacerbation; I47.1 Supraventricular tachycardia; E87.2 Acidosis; I13.0 Hypertensive heart and chronic kidney disease with heart failure and stage 1 through stage 4 chronic kidney disease, or unspecified chronic kidney disease; N18.4 Chronic kidney disease, stage 4 (severe); Z99.81 Dependence on supplemental oxygen; Z87.891 Personal history of nicotine dependence; R04.0 Epistaxis; I99.8 Other disorder of circulatory system; I50.9 Heart failure, unspecified; E11.22 Type 2 diabetes mellitus with diabetic chronic kidney disease; E11.65 Type 2 diabetes mellitus with hyperglycemia; Z79.4 Long term (current) use of insulin; N40.0 Benign prostatic hyperplasia without lower urinary tract symptoms; H91.90 Unspecified hearing loss, unspecified ear; H54.7 Unspecified visual loss; E78.00 Pure hypercholesterolemia, unspecified; E03.9 Hypothyroidism, unspecified; Z85.828 Personal history of other malignant neoplasm of skin; Z85.820 Personal history of malignant melanoma of skin; Z91.041 Radiographic dye allergy status; Z79.82 Long term (current) use of aspirin; Z79.899 Other long term (current) drug therapy
CPT/HCPCS: 36415; 36600; 80048; 80053; 82803; 82962; 83605; 83735; 84484; 85025; 85027; 87040; 87070; 87186; 87205; 93005; 94640; 94660; 97110-GP; 97162-GP; 97530-GP; A9270-GY; J0153; J0696; J1650; J1815; J1815-GY; J1956; J2920; J3370; J3490; J7030; J7050; J7620-GY

== ENCOUNTER 2019-04-06 08:43 | Emergency (ER) | payer MEDICARE, BC ==
[2019-04-06 09:05] VITALS: BP 158/53; PULSE 70
--- NOTE | 2019-04-06 09:16 | EDM.PDOC ---
ED HPI GENERAL MEDICAL PROBLEM - General Chief Complaint: Lower Extremity Injury/Pain Stated Complaint: ILL Time Seen by Provider: 04/06/19 09:05 Source of Information: Reports: Patient, Family, Old Records, RN History Limitations: Reports: No Limitations - History of Present Illness INITIAL COMMENTS - FREE TEXT/NARRATIVE: 84 yo male with a pHx of peripheral neuropathy noted an ecchymotic L foot today upon awakening. Does not remember an injury and the foot really doesn't hurt that bad. Due to his neuropathy he doesn't feel pain normally in his feet. Had an appt in the clinic for this, but family got a call saying to go straight to the ER. Is only on ASA for blood thinners. Onset: Today Onset Date: 04/06/19 Duration: Hour(s):, Constant Location: Reports: Lower Extremity, Left Quality: Reports: Other (no pain) Severity: Mild Improves with: Reports: None Worsens with: Reports: Other (unknown) Context: Reports: Trauma (not sure) Associated Symptoms: Reports: No Other Symptoms Treatments MANAGER OF PRODUCTION: Reports: Other (see below) (none) - Related Data Allergies Allergy/AdvReac Type Severity Reaction Status Date / Time Iodinated Contrast Media AdvReac Renal Verified 04/06/19 09:14 [Iodinated Contrast Media - Insufficiency IV Dye] Home Meds: Home Meds Cholecalciferol (Vitamin D3) [Vitamin D3] 2,000 unit PO DAILY 03/14/14 [History] carvediloL [Coreg] 6.25 mg PO BID 03/14/14 [History] metroNIDAZOLE [metroNIDAZOLE 0.75% Gel] 45 gm .XX DAILY 03/14/14 [History] Aspirin [Ecotrin EC] 81 mg PO DAILY 11/14/16 [History] Losartan [Cozaar] 50 mg PO BID 11/14/16 [History] Multivitamin [Multi-Vitamin Daily] 1 tab PO DAILY 11/14/16 [History] Terazosin [Hytrin] 10 mg PO DAILY 11/14/16 [History] Bumetanide [Bumex] 2 mg PO BID #60 tab 11/26/17 [Rx] D-Mannose 25 gm MC DAILY 11/29/17 [History] Levothyroxine [Synthroid] 50 mcg PO ACBREAKFAST 07/07/18 [History] hydrALAZINE [Apresoline] 12.5 mg PO TID 07/07/18 [History] Insulin Glargine,Hum.Rec.Anlog [Basaglar Kwikpen U-100] 20 unit SQ BID 07/28/18 [History] Doxycycline Hyclate 100 mg PO BID #9 capsule 08/03/18 [Rx] carvediloL [Coreg] 12.5 mg PO BID #60 tab 08/03/18 [Rx] Past Medical History HEENT History: Reports: Hard of Hearing, Impaired Vision, Sinusitis Cardiovascular History: Reports: Afib, Heart Failure, High Cholesterol, Hypertension, Other (See Below) Other Cardiovascular History: localized edema Respiratory History: Reports: COPD, Other (See Below) Other Respiratory History: pt uses 3 liters O2 continuous Gastrointestinal History: Reports: None Genitourinary History: Reports: BPH, Chronic Renal Insuffiency, Other (See Below ) Other Genitourinary History: lesion of bladder Endocrine/Metabolic History: Reports: Diabetes, Type II, Hypothyroidism Oncologic (Cancer) History: Reports: Basal Cell Carcinoma, Malignant Melanoma Dermatologic History: Reports: Melanoma, Other (See Below) - Infectious Disease History Infectious Disease History: Reports: Chicken Pox, Measles, Mumps - Past Surgical History Head Surgeries/Procedures: Reports: None HEENT Surgical History: Reports: Tonsillectomy, Other (See Below) Other HEENT Surgeries/Procedures: mandubular mass surgery Cardiovascular Surgical History: Reports: None Respiratory Surgical History: Reports: None GI Surgical History: Reports: Colonoscopy Endocrine Surgical History: Reports: None Oncologic Surgical History: Reports: None Dermatological Surgical History: Reports: Skin Biopsy Social & Family History - Family History Family Medical History: Noncontributory - Caffeine Use Caffeine Use: Reports: Coffee, Soda Caffeine Use Comment: 1-2 cups coffee a day Review of Systems - Review of Systems Review Of Systems: Comprehensive ROS is negative, except as noted in HPI. Constitutional: Reports: No Symptoms Musculoskeletal: Reports: No Symptoms Skin: Reports: Bruising (L forefoot dorsally) Neurological: Reports: Paresthesia (both feet) ED EXAM, GENERAL - Physical Exam Exam: See Below Exam Limited By: No Limitations General Appearance: Alert, WD/WN, No Apparent Distress Extremities: Other (L forefoot is ecchymotic dorsally, nontender) Neurological: Alert, Oriented, CN II-XII Intact, Normal Cognition, Sensory/ Motor Deficit (both feet with decreased sensation). No: No Motor/Sensory Deficits Skin Exam: Warm, Dry, Intact, No Rash, Ecchymosis (L foot) Course - Vital Signs Last Recorded V/S: Last Vital Signs Temp 36.4 C 04/06/19 09:12 Pulse 70 04/06/19 09:12 Resp 18 04/06/19 09:12 BP 158/53 H 04/06/19 09:12 Pulse Ox 94 L 04/06/19 09:12 - Orders/Labs/Meds Orders: Active Orders 24 hr Category Date Time Status Foot Comp Min 3V Lt [CR] Stat Exams 04/06/19 09:09 Taken - Radiology Interpretation Free Text/Narrative:: Foot X-ray- neg Departure - Departure Time of Disposition: 09:36 Disposition: Home, Self-Care 01 Condition: Good Clinical Impression: Traumatic ecchymosis of left foot Qualifiers: Encounter type: initial encounter Qualified Code(s): S90.32XA - Contusion of left foot, initial encounter - Discharge Information *PRESCRIPTION DRUG MONITORING PROGRAM REVIEWED*: No *COPY OF PRESCRIPTION DRUG MONITORING REPORT IN PATIENT SHANIQUA: No Instructions: Foot Contusion, [id number] Referrals: Adriano Kendall MD [Primary Care Provider] - Forms: ED Department Discharge Additional Instructions: Elevation will facilitate more rapid resolution of the bruising. Recheck as needed. Sepsis Event Note - Focused Exam Vital Signs: Vital Signs Temp Pulse Resp BP Pulse Ox 04/06/19 09:12 36.4 C 70 18 158/53 H 94 L 04/06/19 09:04 36.4 C 70 18 158/53 H 94 L Date Exam was Performed: 04/06/19 Time Exam was Performed: 09:36 - My Orders Last 24 Hours: My Active Orders 04/06/19 09:09 Foot Comp Min 3V Lt [CR] Stat - Assessment/Plan Last 24 Hours: My Active Orders 04/06/19 09:09 Foot Comp Min 3V Lt [CR] Stat
--- NOTE | 2019-04-09 08:40 | CR ---
Foot Comp Min 3V Lt CLINICAL HISTORY: Neuropathy FINDINGS: There is no acute fracture or dislocation within the foot. No destructive changes are present. There is generalized soft tissue swelling. There are some osteoarthritic changes in the toes. There is a calcaneal spur. IMPRESSION: No acute bony process. Soft tissue swelling Osteoarthritic changes
== END 2019-04-06 10:08 | disposition home or self-care (01) ==
LOC: JP.ED 08:43
DX: S90.32XA Contusion of left foot, initial encounter (principal); I13.0 Hypertensive heart and chronic kidney disease with heart failure and stage 1 through stage 4 chronic kidney disease, or unspecified chronic kidney disease; E11.22 Type 2 diabetes mellitus with diabetic chronic kidney disease; N18.9 Chronic kidney disease, unspecified; I50.9 Heart failure, unspecified; E03.9 Hypothyroidism, unspecified; E78.00 Pure hypercholesterolemia, unspecified; Z79.82 Long term (current) use of aspirin; Z79.4 Long term (current) use of insulin; Z79.899 Other long term (current) drug therapy; X58.XXXA Exposure to other specified factors, initial encounter
CPT/HCPCS: 73630-26-LT; 73630-LT; 99282; 99283-25